=== PATIENT | female | born 1970 | race Caucasian/White ===

== ENCOUNTER 2020-07-14 01:28 | Inpatient (IN) | payer OTHER ==
[~2020-07-14] VITALS: Ht 170.2 cm; Wt 71.1 kg
[2020-07-14] VITALS (50 sets, daily range): BP systolic 61–129; BP diastolic 34–69
[2020-07-14] MEDS: NOREPINEPHRINE BITARTRATE 8 MG in D5W 492 ML IV SCH ×5 (01:30→20:15)
[2020-07-14] MEDS ORDERED: NS 500 ML IV ONE ×2 (01:40→08:45)
[2020-07-14] MEDS ORDERED: NS 1,000 ML IV SCH ×2 (01:40→14:15)
[2020-07-14] MEDS: MIDAZOLAM 5MG/ML 1ML VIAL (J2250 PER 1MG) IV PRN ×2 (01:49→02:36)
[2020-07-14] MEDS ORDERED: EPINEPHrine INJ 1 MG/ML 1ML AMP As Ordered ONE (02:35)
[2020-07-14] MEDS: propofoL 1,000 MG in IV 1 EA IV SCH ×5 (02:50→21:24)
[2020-07-14] MEDS: fentaNYL CITRATE 1,000 MCG in NS 80 ML IV SCH ×2 (02:51→02:54)
[2020-07-14] MEDS ORDERED: NS 1,000 ML IV ONE (03:20)
[2020-07-14] MEDS ORDERED: ISOVUE-370 76% 100ML VIAL As Ordered ONE (03:26)
[2020-07-14 03:31] LABS: VENOUS BASE EXCESS -15.2 (-2.0-2.0); VENOUS HCO3 14.2 MEQ/L (23.0-27.0); VENOUS O2 SATURATION 93.3 % (60.0-80.0); VENOUS PARTIAL PRESSURE CO2 47.9 mmHg (38.0-50.0); VENOUS PARTIAL PRESSURE O2 84.9 mmHg (30.0-50.0); VENOUS PH 7.091 UNITS (7.330-7.430); VENOUS STANDARD HCO3 12.8 MEQ/L; VENOUS TOTAL CO2 15.7 MEQ/L (24.0-28.0)
[2020-07-14 03:46] LABS: HEMATOCRIT 37.6 % (36.0-47.0); MEAN CORPUSCULAR HEMOGLOBIN 26.4 pg (27.0-33.0); MEAN CORPUSCULAR HGB CONC 29.3 g/dl (32.0-36.5); MEAN CORPUSCULAR VOLUME 90.4 fl (80.0-96.0); PLATELET COUNT, AUTOMATED 550 10^3/uL (150-450); RED BLOOD COUNT 4.16 10^6/uL (4.00-5.40); WHITE BLOOD COUNT 27.7 10^3/uL (4.0-10.0)
[2020-07-14 03:57] LABS: ALBUMIN 2.5 GM/DL (3.2-5.2); BILIRUBIN,TOTAL 1.2 MG/DL (0.2-1.0); CALCIUM LEVEL 7.9 MG/DL (8.5-10.1); GLOMERULAR FILTRATION RATE 27.9 (>51); POTASSIUM SERUM 5.9 MEQ/L (3.5-5.1)
--- NOTE | 2020-07-14 04:01 | REPVR ---
PROCEDURE INFORMATION: Exam: XR Abdomen Exam date and time: 07/14/2020 3:19 AM Age: 50 years old Clinical indication: Device placement; Vascular catheter; Additional info: Line TECHNIQUE: Imaging protocol: XR of the abdomen. Views: Frontal supine view of the abdomen. 1 View. COMPARISON: No relevant prior studies available. FINDINGS: Limitations: The abdomen was only partially included in the field of view. Tubes, catheters and devices: There is a right femoral catheter with the tip projecting just lateral to the L5 vertebral body, probably in the IVC. Gastrointestinal tract: There is no significant dilation of the visualized bowel. Intraperitoneal space: There are surgical clips on the right side of the pelvis. Bones/joints: The distal aspect of a screw is partially included in the right femoral head. IMPRESSION: Right femoral catheter with the tip probably in the IVC. Electronically signed by: Melissa Akins On 07/14/2020 04:01:00 AM
[2020-07-14 04:02] LABS: INR 1.23; PROTHROMBIN TIME 15.8 SECONDS (12.5-14.3)
--- NOTE | 2020-07-14 04:02 | REPVR ---
PROCEDURE INFORMATION: Exam: XR Chest Exam date and time: 07/14/2020 3:19 AM Age: 50 years old Clinical indication: Device placement; Ett placement (vent status); Additional info: Post intubation tube placement TECHNIQUE: Imaging protocol: XR of the chest. Views: 1 view. COMPARISON: No relevant prior studies available. FINDINGS: Limitations: The patient is rotated. Tubes, catheters and devices: A nasogastric tube is present with the tip in the stomach. There is an endotracheal tube in appropriate position. A loop recorder projects over the heart. Lungs: The lungs are clear. Pleural spaces: No pleural effusions or pneumothorax identified. Heart/Mediastinum: The heart is normal in size. Bones/joints: Unremarkable. IMPRESSION: 1. Endotracheal tube and nasogastric tube in appropriate position. 2. No evidence of acute pleural or parenchymal disease. Electronically signed by: Melissa Akins On 07/14/2020 04:02:00 AM
[2020-07-14 04:03] LABS: PARTIAL THROMBOPLASTIN TIME 46.2 SECONDS (24.2-38.5)
--- NOTE | 2020-07-14 04:10 | REPVR ---
PROCEDURE INFORMATION: Exam: CTA Chest With Contrast Exam date and time: 07/14/2020 3:46 AM Age: 50 years old Clinical indication: Other: Hypoxia, hypotension; Additional info: Hypoxia, hypotension, eval for pe TECHNIQUE: Imaging protocol: Computed tomographic angiography of the chest with contrast. 3D rendering (Not supervised by radiologist): MIP and/or 3D reconstructed images were created by the technologist. Radiation optimization: All CT scans at this facility use at least one of these dose optimization techniques: automated exposure control; mA and/or kV adjustment per patient size (includes targeted exams where dose is matched to clinical indication); or iterative reconstruction. Contrast material: ISOVUE 370; Contrast volume: 75 ml; Contrast route: INTRAVENOUS (IV); COMPARISON: CR PORTABLE CHEST X-RAY 07/14/2020 3:02 AM FINDINGS: Tubes, catheters and devices: A nasogastric tube is present with the tip in the stomach. There is an endotracheal tube in appropriate position. Pulmonary arteries: The pulmonary arteries are not enlarged. No filling defects are seen to indicate an acute pulmonary embolism. Aorta: The aorta demonstrates mild atherosclerotic calcification. There is no thoracic aortic aneurysm or evidence of dissection. Lungs: Moderate centrilobular emphysematous changes are present. There are multiple small calcified granulomata in both lungs. There is minimal dependent atelectasis in the bilateral lower lobes. Pleural spaces: No pleural effusions or pneumothorax identified. Heart: The heart is normal in size. Mediastinal space: There is retained fluid throughout the length of the esophagus. Lymph nodes: No lymphadenopathy is seen. Stomach and bowel: There are surgical sutures at the stomach and small bowel, related to a gastric bypass surgery. There are fluid-filled, mildly dilated small bowel loops and fluid-filled colonic loops in the visualized upper abdomen. The bowel gas pattern was not fully assessed on this exam. Bones/joints: No suspicious osseous lesions. No acute fractures. Soft tissues: Bilateral breast implants are present. IMPRESSION: 1. No evidence of acute pulmonary embolism. 2. No thoracic aortic aneurysm or dissection. 3. Emphysema and evidence of prior granulomatous disease with multiple pulmonary granulomata. 4. Dilated, fluid-filled small bowel and colon visualized in the upper abdomen. The bowel gas pattern is not fully assessed, but this may be due to an ileus or a distal bowel obstruction. Electronically signed by: Melissa Akins On 07/14/2020 04:09:56 AM
[2020-07-14] MEDS ORDERED: SODIUM BICARBONATE 8.4% INJ 50 ML SYRINGE IV STA ×2 (04:17→09:02)
[2020-07-14] MEDS ORDERED: NOREPINEPHRINE BITARTRATE 8 MG in D5W 492 ML IV SCH (04:40)
[2020-07-14] MEDS: NS 1,000 ML IV SCH ×5 (05:08→23:38)
[2020-07-14] MEDS: MIDAZOLAM INJ 2MG/2ML VIAL (J2250 PER 1MG) IV PRN ×9 (05:25→20:53)
[2020-07-14] MEDS ORDERED: MEROPENEM INJ 1 GM in IV 1 EA IV ONE (06:20)
[2020-07-14] MEDS: HEPARIN SOD (PORCINE) 5000UNITS/ML 1ML VIAL/SYRINGE SC SCH ×3 (06:42→19:50)
[2020-07-14] MEDS: IPRATROPIUM 0.5MG/ALBUTEROL 2.5MG INH SOL UD 3ML (DUONEB) NEB SCH ×4 (07:42→19:29)
[2020-07-14] MEDS ORDERED: GABA600T4 PO (08:08)
[2020-07-14] MEDS ORDERED: VITA50005 PO (08:08)
[2020-07-14] MEDS ORDERED: ASPI81CH49 PO (08:08)
[2020-07-14] MEDS ORDERED: LATU1TAB PO (08:08)
[2020-07-14] MEDS ORDERED: MORP15TA2 PO (08:08)
[2020-07-14] MEDS ORDERED: LEVE750T5 PO (08:08)
[2020-07-14] MEDS ORDERED: ENOX30IN3 SC (08:08)
[2020-07-14] MEDS ORDERED: VITA500T11 PO (08:08)
[2020-07-14] MEDS ORDERED: BUSP15TA47 PO (08:08)
[2020-07-14] MEDS ORDERED: FERR1TAB8 PO (08:08)
[2020-07-14] MEDS ORDERED: LISI-898 PO (08:08)
[2020-07-14] MEDS ORDERED: AMIT100TA PO (08:08)
[2020-07-14] MEDS ORDERED: HYDR50CA2 PO (08:08)
[2020-07-14] MEDS ORDERED: QUET50TA3 PO (08:08)
[2020-07-14] MEDS ORDERED: ZOLP12.518 PO (08:08)
[2020-07-14] MEDS ORDERED: MAGN400T35 PO (08:08)
[2020-07-14] MEDS ORDERED: CYAN1000VL IM (08:08)
[2020-07-14] MEDS ORDERED: SODIUM CHLORIDE 0.9% 1000ML IV ONE (08:30)
[2020-07-14 08:57] LABS: ABG BASE EXCESS -13.4 (-2.0-2.0); ABG HCO3 12.8 MEQ/L (22.0-26.0); ABG O2 SATURATION 95.1 % (95.0-99.0); ABG PARTIAL PRESSURE CO2 31.1 mmHg (35.0-45.0); ABG PARTIAL PRESSURE O2 84.4 mmHg (75.0-100.0); ABG TOTAL CO2 13.8 MEQ/L (22.0-29.0)
[2020-07-14] MEDS: CHLORHEXIDINE GLUCONATE 0.12 % 15ML UDC (PERIDEX ORAL RINSE) MT SCH ×2 (08:57→21:00)
[2020-07-14] MEDS: PANTOPRAZOLE 40MG VIAL (C9113 PER 1) IV SCH (08:58)
[2020-07-14] MEDS: MORPHINE 2 MG/ML 1ML VIAL (J2270) IV PRN ×4 (09:00→23:39)
[2020-07-14 09:01] LABS: ABG pH (ARTERIAL) 7.234 UNITS (7.350-7.450)
[2020-07-14 10:48] LABS: HEMATOCRIT 35.9 % (36.0-47.0); HEMOGLOBIN 10.6 g/dl (12.0-15.5); MEAN CORPUSCULAR HEMOGLOBIN 25.8 pg (27.0-33.0); MEAN CORPUSCULAR HGB CONC 29.5 g/dl (32.0-36.5); MEAN CORPUSCULAR VOLUME 87.3 fl (80.0-96.0); PLATELET COUNT, AUTOMATED 502 10^3/uL (150-450); RED BLOOD COUNT 4.11 10^6/uL (4.00-5.40); WHITE BLOOD COUNT 17.7 10^3/uL (4.0-10.0)
[2020-07-14] MEDS ORDERED: BUPIVACAINE HCL 0.25% 30ML VIAL As Ordered ONE (10:50)
[2020-07-14] MEDS ORDERED: LIDOCAINE 1% SDV 30ML VIAL As Ordered ONE (10:50)
[2020-07-14] MEDS: SODIUM BICARBONATE 100 MEQ in D5W 1,000 ML IV SCH (10:52)
[2020-07-14] MEDS: VASOPRESSIN INJ 20 UNITS in NS 499 ML IV SCH ×2 (11:00→17:10)
[2020-07-14 11:13] LABS: ALBUMIN 2.1 GM/DL (3.2-5.2); BILIRUBIN,TOTAL 0.9 MG/DL (0.2-1.0); CALCIUM LEVEL 7.1 MG/DL (8.5-10.1); CREATININE FOR GFR 1.77 MG/DL (0.55-1.30); GLOMERULAR FILTRATION RATE 32.1 (>51); PHOSPHORUS LEVEL 6.2 MG/DL (2.5-4.9); POTASSIUM SERUM 5.2 MEQ/L (3.5-5.1); TOTAL PROTEIN 4.6 GM/DL (6.4-8.2)
[2020-07-14 11:16] LABS: ATYPICAL LYMPH 4 % (0-5); GIANT PLATELETS 1+; LYMPHOCYTES 3 % (16-44); MONOCYTES 1 % (0-5); NEUTROPHILS 76 % (28-66); PLATELET CLUMPS MODERATE AMT; PLATELET ESTIMATE INCREASED (NORMAL)
[2020-07-14 11:19] LABS: TOXIC VACUOLATION 1+
[2020-07-14] MEDS ORDERED: METOCLOPRAMIDE INJ 10MG/2ML VIAL (J2765 PER 1) As Ordered ONE (12:08)
[2020-07-14] MEDS ORDERED: ETOMIDATE INJ 20MG/10ML VIAL As Ordered ONE (12:08)
[2020-07-14] MEDS ORDERED: propofoL 200 MG/20 ML VIAL As Ordered ONE (12:08)
[2020-07-14] MEDS ORDERED: ROCURONIUM BROMIDE 50 MG/5 ML VIAL As Ordered ONE ×2 (12:08→13:31)
[2020-07-14] MEDS ORDERED: dexameTHASONE 4 MG/ML 1ML VIAL (J1100 PER 1MG) As Ordered ONE (12:08)
[2020-07-14] MEDS ORDERED: fentaNYL 250 MCG/5 ML INJECTION (J3010) As Ordered ONE (12:08)
[2020-07-14] MEDS ORDERED: ONDANSETRON 4MG/2ML VIAL As Ordered ONE ×2 (12:08→13:33)
[2020-07-14] MEDS ORDERED: MIDAZOLAM INJ 2MG/2ML VIAL (J2250 PER 1MG) As Ordered ONE (12:08)
[2020-07-14] MEDS ORDERED: HYDROMORPHONE HCL 0.5 MG/ 0.5 ML SYRINGE (J1170 PER 1) IV PRN (14:10)
[2020-07-14] MEDS ORDERED: ONDANSETRON 4MG/2ML VIAL IV PRN (14:10)
[2020-07-14] MEDS ORDERED: fentaNYL 100 MCG/2 ML INJECTION (J3010) IV PRN (14:10)
[2020-07-14] MEDS ORDERED: HumaLOG INSULIN (NovoLOG) PER UNIT SC ONE (14:15)
--- NOTE | 2020-07-14 14:32 | ECHO ---
DATE OF PROCEDURE: 07/14/2020 Age: 50 Gender: Female Height: 67 inches Weight: 174 pounds Body surface area: 1.91 m2 PATIENT LOCATION: Inpatient ICU, room 3206. REFERRING PHYSICIAN: Gus Balbuena M.D. INDICATION: Sepsis. MEASUREMENTS: 2D Measurements: RV 3.3 cm LV 4.7 cm Septum 1.0 cm Posterior wall 1.0 cm Aortic Root 3.1 cm LA 3.2 cm LVEF 70-75% Doppler Measurements: AV 1.28 m/s LVOT 1.11 m/s LVOT diameter 1.8 cm MV-E 59, A 78, E/A ratio 0.8 Early mitral deceleration time 121 msec PV 1.1 m/s Pulmonary artery acceleration time 82 msec PASP 45 mmHg IVC 1.0 cm COMMENTS: Sinus tachycardia without intraventricular conduction disturbance. Technically difficult study in light of the patient being on a ventilator in the intensive care unit, but some diagnostically useful information was still obtained. Normal left ventricular size and wall thickness with hyperkinetic wall motion. Normal left atrial size with grade 1 LV diastolic dysfunction, but no clear evidence of an elevated mean left atrial pressure. Normal right heart chamber sizes with hyperkinetic right ventricular free wall motion and Doppler evidence of at least [id number] pulmonary hypertension. Somewhat reduced IVC size with complete collapse suggestive of a slightly low central venous pressure. Normal aortic dimensions. Normal appearing and functioning aortic valve. Normal appearing and functioning mitral valve. Normal appearing and functioning tricuspid valve with no more than trace insufficiency. No apparent intracardiac mass. Very small anterior and posterior echo free space with no evidence of cardiac chamber compression. MTDD
[2020-07-14 14:51] LABS: ABG BASE EXCESS -10.7 (-2.0-2.0); ABG HCO3 16.4 MEQ/L (22.0-26.0); ABG PARTIAL PRESSURE O2 85.9 mmHg (75.0-100.0); ABG STANDARD HCO3 15.7 MEQ/L (22.0-26.0); ABG TOTAL CO2 17.7 MEQ/L (22.0-29.0)
[2020-07-14 14:52] LABS: ABG pH (ARTERIAL) 7.209 UNITS (7.350-7.450)
--- NOTE | 2020-07-14 15:21 | ROOPDOC ---
[facility] Report Of Operation Report of Operation DATE OF PROCEDURE: 07/14/20 PREPROCEDURE DIAGNOSES: abdominal sepsis, ?ischemic bowel. POSTPROCEDURE DIAGNOSES: ischemic sigmoid down to mid rectum. PROCEDURE: Diagnostic Laparoscopyc converted to Exploratory Laparotomy, Resection of Sigmoid to mid rectum for ischemia, end colostomy. SURGEON: Jerzy Roberts MD DRILLING MACHINE OPERATOR: Joon Cortez MD (assisted me in the conduct of the whole procedure gin with retraction of bowels, exposure, dissection and decision making.) ANESTHESIA: General Endotracheal Anesthesia. ESTIMATED BLOOD LOSS: Approximately 300 mL. COMPLICATIONS: remains critically ill, intubated on norepinephrine for vasopressor support. REMARKS: Patient is 50 F transferred from outside hospital in critical condition. PROCEDURE NOTE: . DESCRIPTION OF PROCEDURE: Patient was brought down from the ICU to the operating room. She is intubated. She is receiving norepinephrine for vasopressor support. She has a Lopes c atheter with dark colored concentrated urine. She has a left femoral triple- lumen catheter. In the operating room she was transferred to the procedure table. Anesthesia tried to get an arterial line was not successful. Her left arm was tucked. Compression boots placed in both lower extremities were DVT prophylaxis. Her abdomen then prepped and draped in the usual sterile fashion.We paused for a surgical timeout using both pre-incision safety checklist to verify correct patient, procedure site and additional clinical information prior to beginning the procedure I started with diagnostic laparoscopy. The Veress needle was inserted over her left upper quadrant area. Initially the insufflation was uneven but with slight withdrawal of the Veress needle, we were able to insufflate her abdomen to a pressure 15 mmHg. Using the same incision a 5 mm optical port was placed under direct vision of 5 mm laparoscope. Insertion site was inspected for injury and none was found. She was placed on a slight Trendelenburg position. It turns out she has had a prior ventral hernia repair with a moderate-sized piece of mesh on her upper abdominal wall seems to be centered on the umbilicus. The transverse colon is adhered some to the top portion of the mesh. Visible portions of the bowel appears healthy. In the pelvis or some dark greenish almost bilious type fluid the sigmoid colon is noted to be pale and ischemic in appearance. The cecum is gas-filled, pink and healthy in appearance. There is also small amount of fluid up in the right upper quadrant by the liver. I placed a 5 mm ordered over the left lower quadrant area mainly to look at the upper abdomen to rule out a gastric perforation. Unfortunately the loop of transverse colon is on our way, but clearly the sigmoid colon seems to be the source of her sepsis. At this point I made incisions convert to an open surgery. A vertical midline incision was created infraumbilically and taken to above the umbilicus. We made a would extend this down to the symphysis pubis and also slightly above higher for adequate exposure. This was taken down through to the subcutaneous tissue. The abdomen was entered below the mesh. The extend the fascial incision to the length of the skin incision the mesh was divided at the midline. As mentioned we extended this down to the level of the symphysis pubis also bringing down the urinary bladder flap. I then started exploration by exteriorizing the small bowel. I started over at the right lower quadrant the ligament of Treitz. The bowel appears healthy I ran the bowel retrogradely to the level of the jejunojejunostomy which appears healthy. The bypass limb was also visualized and noted to be healthy up until the point that it went underneath the transverse colon mesentery. As mentioned the transverse colon was adhered to the top of the mesh precluding view of the stomach. The cecum is distended with air. The appendix is noted, mildly thickened wall but with no active inflammation. I followed the course of the right colon to the transverse colon. The sigmoid colon was also exteriorized this was quite redundant and floppy and this appears farrell, pale in appearance with thinned out portion of the antimesenteric wall. This was filled with soft stools down to the rectum. There was no obvious parts were this perforated but the whole of the loop of sigmoid colon is ischemic in appearance. I followed this to the rectum initiated visible portion of her rectum also appeared ischemic. This does not seem to be a volvulus type picture as to hold: Though mildly distended appears uniform in size with no kinking. I followed this retrogradely to the descending colon which starts becoming healthy urine appearance though still mildly pale. I chose an area of the junction of the sigmoid and descending colon were it appears healthy otherwise. A mesenteric window was created and the sigmoid colon was divided with an echelon 60 mm stapler with a green load. I then divided the mesentery at its midportion to avoid injuring the retroperitoneal structures especially that of the ureter. Thi s was done with the LigaSure device. We progressively went down towards the rectum. At this point we set up the Bookwalter self retaining retractor to allow us better view of the rectum. The posterior TME plane was opened up on both sides and the lateral peritoneal attachments to the rectum was likewise opened up. This continues to have patchy pale ischemic appearance on the upper rectum down to the mid rectum. I continued dividing the mesentery of the sigmoid colon to the rectum. The anterior peritoneal attachments between the rectum and the urinary bladder was also opened up to allow us to further manipulate and pull up on the rectum. I could not find a clearly defined healthy and to the rectum is or patches of ischemia and ureteral down to the extraperitoneal portion of the rectum behind the mid bladder at this point. I felt that even though the rectum does not appear totally healthy this may withstand closure and as the patient remains critically ill probably be a better option that we get her off the table as well as as we can for proper resuscitation. I chose an area about the mid rectum which appears fairly healthy though admittedly it still thinned wall, mildly pale in appearance. I divided the mesorectum at this point to send his out. Once this was done a contour 45 mm stapler was then used and it was divided at this point. We evaluated the stump and as mentioned wall superior thinned and pale but overall intact or some mild oozing at the staple line as well as behind at the transected portions of the mesorectum. We irrigated and cauterized clearly visible losing as well as placed a couple of hemoclips at this point. This was temporarily packed and night went on with the exploration. The bowel was again ran from the terminal ileum retrogradely passed the jejunojejunostomy and to the bypass limb to as he goes underneath the transverse mesocolon and all this appears healthy. The abdomen was then irrigated fully. No other patches of ischemic bowel was found. I further freed up the descending colon off its lateral and medial attachments to allow it to be pulled out as a colostomy. I chose an area in the left lower quadrant area slightly more lateral still within the rectus muscle to avoid the mesh. I had to trim the mesh on the left side so this does not come in contact with the colon. A disc of skin was removed along with the underlying subcutaneous tissue at the chosen area for the colostomy. Anterior sheath was opened up the rectus sheath was split and the posterior sheath was likewise opened up the accommodate 2 fingers. The descending colon stump was then pulled out and we checked for alignment to make sure there is no twisting of the bowel. The Bookwalter retractors were then removed as well as the laparotomy pads. A partial count was done to make sure there were no leftover laparotomy pads. 219 Jason drains were placed through the abdominal wall to the rectal stump on each side. The laparotomy incision was then closed with a running suture of #1 looped PDS. The subcutaneous tissue was irrigated and the skin was closed loosely with jaxson and Telfa luis were placed in between the staple line. The colostomy was then matured flush on the skin. The mucosa appears mildly pale but there was adequate losing at the cut ends. The colostomy appliance was placed. All drains secured to the skin. Bulky gauze dressings in place on top of the incision. Patient remains critically ill on vas opressor support though she has started to make some clear appearing urine. She was transferred to the recovery room area in a critical condition remaining intubated.. JERZY ROBERTS MD July 14, 2020 15:21
[2020-07-14] MEDS ORDERED: PATIENT COMMENT (15:30)
[2020-07-14] MEDS ORDERED: SODIUM BICARBONATE 8.4% INJ 50 ML SYRINGE IV ONE (15:35)
[2020-07-14] MEDS ORDERED: GLUCAGON INJ 1MG VIAL SC PRN (16:25)
[2020-07-14] MEDS ORDERED: GLUCOSE 4GM CHEW TABLET PO PRN (16:25)
[2020-07-14] MEDS ORDERED: DEXTROSE 50% 50 ML SYRINGE IV PRN (16:25)
[2020-07-14 17:21] LABS: ABG BASE EXCESS -9.9 (-2.0-2.0); ABG HCO3 15.3 MEQ/L (22.0-26.0); ABG O2 SATURATION 97.3 % (95.0-99.0); ABG PARTIAL PRESSURE CO2 30.9 mmHg (35.0-45.0); ABG PARTIAL PRESSURE O2 101.3 mmHg (75.0-100.0); ABG STANDARD HCO3 16.3 MEQ/L (22.0-26.0); ABG TOTAL CO2 16.3 MEQ/L (22.0-29.0); ABG pH (ARTERIAL) 7.313 UNITS (7.350-7.450)
--- NOTE | 2020-07-14 17:21 | CCN ---
CRITICAL CARE NOTE DATE: 07/14/2020 START TIME: 1550. STOP TIME: 1619. SUBJECTIVE: I again attended Susanna Portillo first in the recovery room and then on arrival here in the intensive care unit. I spoke at length with Dr. Roberts from general surgery as well as Dr. Rizvi from anesthesia. She did receive about 4 liters of crystalloid. She received some albumin. She got 1 amp of bicarbonate postoperatively. She is back on the same Levophed, actually was weaned mildly, but is now back to 50 mcg. Repeat blood gas done immediately postoperative showed a pH of 7.209, pCO2 of 42, pO2 of 85.9. Ventilator changes have been made by myself. Repeat blood gasses are pending. Currently, she is propofol as well as Levophed and crystalloid running at 250 mL/hour. Right radial arterial (A) line pressure reads 75-78 systolic. Noninvasive cuff reads 82-88 systolic. She is making good urine at this point. She did require resection of the sigmoid and proximal rectum. She has a colostomy in place and the stump is borderline at this point in appearance. I spoke with Dr. Roberts in that regard. PHYSICAL EXAMINATION: The remainder of the examination shows her heart rate to be 120 with a sinus mechanism, blood pressure as outlined above. She does overbreathe the ventilator with a rate of about 26-30 without accessory muscle use. She is currently afebrile. Pupils do react. Sclerae are clear. Trachea is midline. LUNGS: Clear to both auscultation and percussion. Expansion is symmetric. CARDIAC EXAM: Distant, tachycardic, but regular. Peripheral pulses diminished, but palpable. EXTREMITIES: Cool. Show her dressings from her open reduction internal fixation (ORIF). ABDOMEN: Shows her dressings and drains in place. NEUROLOGIC: She is sedate, but does move all extremities. THE MOST PRESSING PROBLEMS REQUIRING MY PRESENCE AT THE BEDSIDE: 1. Metabolic acidosis, now secondary to resection of ischemic bowel. 2. Respiratory failure, multifactorial. 3. Recent hip fracture. At this point, we will ensure adequate volume resuscitation. She is still requiring vasopressors. Will recheck coags as well as hemoglobin. Will recheck a lactate. I await those labs. The echocardiogram done preoperatively suggested suboptimal volume resuscitation, but otherwise, good systolic function with question of mild to moderate pulmonary hypertension, although the patient is on the ventilator. At this point, we will proceed as outlined above. Will continue her broad spectrum antimicrobials. At this point, she remains critically ill. I left the bedside at 1619 hours. A total of 29 minutes of critical care delivered at the bedside, not including procedures.
[2020-07-14 17:38] LABS: INR 1.26; PROTHROMBIN TIME 16.1 SECONDS (12.5-14.3)
[2020-07-14 17:39] LABS: PARTIAL THROMBOPLASTIN TIME 40.9 SECONDS (24.2-38.5)
[2020-07-14 17:46] LABS: HEMATOCRIT 23.4 % (36.0-47.0); MEAN CORPUSCULAR HEMOGLOBIN 26.3 pg (27.0-33.0); MEAN CORPUSCULAR HGB CONC 30.3 g/dl (32.0-36.5); MEAN CORPUSCULAR VOLUME 86.7 fl (80.0-96.0); WHITE BLOOD COUNT 14.3 10^3/uL (4.0-10.0)
[2020-07-14 17:48] LABS: HEMOGLOBIN 7.1 g/dl (12.0-15.5)
[2020-07-14 17:49] LABS: PLATELET COUNT, AUTOMATED 383 10^3/uL (150-450)
[2020-07-14 17:55] LABS: ALBUMIN 1.8 GM/DL (3.2-5.2); ALT/SGPT 23 U/L (12-78); BILIRUBIN,TOTAL 0.6 MG/DL (0.2-1.0); BLOOD UREA NITROGEN 30 MG/DL (7-18); CARBON DIOXIDE LEVEL 19 MEQ/L (21-32); CHLORIDE LEVEL 112 MEQ/L (98-107); CHOLESTEROL LEVEL < 50 MG/DL (< 200); CPK CREATINE PHOSPHOKINASE 606 U/L (26-192); CREATININE FOR GFR 1.26 MG/DL (0.55-1.30); GLOMERULAR FILTRATION RATE 47.5 (>51); GLUCOSE, FASTING 249 MG/DL (70-100); LDH LACTATE DEHYDROGENASE 400 U/L (84-246); POTASSIUM SERUM 5.3 MEQ/L (3.5-5.1); SODIUM LEVEL 139 MEQ/L (136-145); TOTAL PROTEIN 3.6 GM/DL (6.4-8.2); TRIGLYCERIDES LEVEL 73 MG/DL (<150)
[2020-07-14] MEDS: MEROPENEM INJ 1 GM in IV 1 EA IV SCH (18:49)
[2020-07-14] MEDS: HumaLOG INSULIN (NovoLOG) PER UNIT SC SCH ×2 (18:49→23:42)
[2020-07-14 19:47] LABS: BLAST CELLS 2 % (0-0); LYMPHOCYTES 6 % (16-44); METAMYELOCYTES 16 % (0-0); MONOCYTES 1 % (0-5); MYELOCYTES 4 % (0-0); NEUTROPHILS 36 % (28-66); PLATELET CLUMPS SMALL AMT; PLATELET ESTIMATE INCREASED (NORMAL)
[2020-07-14 19:48] LABS: ANISOCYTOSIS 1+; OVALOCYTES 1+; POIKILOCYTOSIS 3+
[2020-07-14 19:49] LABS: BURR CELLS 1+
[2020-07-14 21:22] LABS: ABG BASE EXCESS -7.7 (-2.0-2.0); ABG HCO3 16.3 MEQ/L (22.0-26.0); ABG O2 SATURATION 98.5 % (95.0-99.0); ABG PARTIAL PRESSURE CO2 27.5 mmHg (35.0-45.0); ABG PARTIAL PRESSURE O2 114.9 mmHg (75.0-100.0); ABG STANDARD HCO3 18.1 MEQ/L (22.0-26.0); ABG TOTAL CO2 17.2 MEQ/L (22.0-29.0); ABG pH (ARTERIAL) 7.392 UNITS (7.350-7.450)
[2020-07-15] VITALS (24 sets, daily range): BP systolic 95–136; BP diastolic 52–73
[2020-07-15] MEDS: VASOPRESSIN INJ 20 UNITS in NS 499 ML IV SCH ×3 (00:05→16:41)
[2020-07-15] MEDS: IPRATROPIUM 0.5MG/ALBUTEROL 2.5MG INH SOL UD 3ML (DUONEB) NEB SCH ×6 (00:11→19:34)
[2020-07-15] MEDS: NS 1,000 ML IV SCH ×6 (00:20→22:15)
[2020-07-15] MEDS: SODIUM BICARBONATE 100 MEQ in D5W 1,000 ML IV SCH (01:04)
[2020-07-15] MEDS: propofoL 1,000 MG in IV 1 EA IV SCH ×8 (01:14→23:16)
[2020-07-15] MEDS: MEROPENEM INJ 1 GM in IV 1 EA IV SCH ×3 (01:14→17:31)
[2020-07-15] MEDS: MIDAZOLAM INJ 2MG/2ML VIAL (J2250 PER 1MG) IV PRN ×8 (02:07→23:49)
[2020-07-15 05:02] LABS: HEMATOCRIT 27.1 % (36.0-47.0); MEAN CORPUSCULAR HGB CONC 33.2 g/dl (32.0-36.5); MEAN CORPUSCULAR VOLUME 84.4 fl (80.0-96.0); RED BLOOD COUNT 3.21 10^6/uL (4.00-5.40); WHITE BLOOD COUNT 13.9 10^3/uL (4.0-10.0)
[2020-07-15 05:06] LABS: PLATELET COUNT, AUTOMATED 234 10^3/uL (150-450)
[2020-07-15 05:37] LABS: ALBUMIN 1.7 GM/DL (3.2-5.2); ALT/SGPT 22 U/L (12-78); BILIRUBIN,TOTAL 0.8 MG/DL (0.2-1.0); BLOOD UREA NITROGEN 21 MG/DL (7-18); CALCIUM LEVEL 6.4 MG/DL (8.5-10.1); CARBON DIOXIDE LEVEL 20 MEQ/L (21-32); CHLORIDE LEVEL 112 MEQ/L (98-107); CHOLESTEROL LEVEL 68 MG/DL (< 200); CPK CREATINE PHOSPHOKINASE 707 U/L (26-192); CREATININE FOR GFR 0.86 MG/DL (0.55-1.30); GLOMERULAR FILTRATION RATE > 60.0 (>51); GLUCOSE, FASTING 209 MG/DL (70-100); LDH LACTATE DEHYDROGENASE 335 U/L (84-246); PHOSPHORUS LEVEL 2.6 MG/DL (2.5-4.9); SODIUM LEVEL 141 MEQ/L (136-145); TOTAL PROTEIN 3.7 GM/DL (6.4-8.2); TRIGLYCERIDES LEVEL 327 MG/DL (<150)
[2020-07-15 05:42] LABS: ATYPICAL LYMPH 1 % (0-5); LYMPHOCYTES 8 % (16-44); METAMYELOCYTES 2 % (0-0); MONOCYTES 3 % (0-5); NEUTROPHILS 57 % (28-66); PLATELET ESTIMATE NORMAL (NORMAL)
[2020-07-15 05:43] LABS: ANISOCYTOSIS 2+; POLYCHROMASIA 1+
[2020-07-15 05:44] LABS: PLATELET CLUMPS SMALL AMT
[2020-07-15 05:45] LABS: POIKILOCYTOSIS 2+; TOXIC VACUOLATION 1+
--- NOTE | 2020-07-15 05:52 | CR.PDOC ---
General Surgery Consultation Date of Consultation 07/15/20 History and Physical CONSULT REPORT FOR: Dr. Gus Balbuena REASON FOR CONSULTATION: abdominal source of sepsis HISTORY OF PRESENT ILLNESS: I was asked to emergently attending to miss Portillo who is currently admitted in the ICU, intubated and critically ill requiring maximum dose of norepinephrine to push her hemodynamics, minimal urine output, significant lactic and metabolic acidosis. There is some which details in her history available in our EMR. I did talk to her daughter on the phone to get more details on her acute and chronic medical history. She is recovering from an acute fall for which she fractured her femur on the right side and subsequently was admitted and [facility] had pinning of her fractured leg early June. Her daughter reports that she was having some constipation problems. Apparently yesterday she was sitting on the toilet trying to move her bowels when she passed out. She was brought to [facility] and from the review of the documentation at [facility] she was found to be hypotensive and during her stay in the emergency room was in respiratory distress were she was subsequently intubated. She was subsequently transferred to our emergency room. Prior to the transfer she had a CT of the chest, CT abdom en and pelvis performed and we have a CT image of those studies. In the ER she continued to be hypotensive. They were able to place a femoral triple-lumen catheter. A repeat CTA of the chest was performed which ruled out an emboli or a pulmonary source of her sepsis. On exam with her being intubated she does react with discomfort on palpation of her abdomen and her abdomen appears to be moderately distended and quiet. PAST MEDICAL HISTORY: 1. unknown at this time PAST SURGICAL HISTORY: INCLUDES: 1. .recent fractured femur with pinning ALLERGIES: Please see below.. HOME MEDICATIONS: Please see below. REVIEW OF SYSTEMS: Not obtainable. Patient is intubated. From my discussion with her daughter, is recovering from her orthopedic surgery. She had a recent fall with fracture of her right femur. She just had surgery at [facility]. Was home for about a week. She was taken or collects for her orthopedic pain. She does not take any chronic narcotics. She does not report any chronic abdominal pain. She reports chronic constipation. No fevers or chills being reported. PHYSICAL EXAMINATION: VITALS SIGNS: Please see below. GENERAL APPEARANCE: Intubated, critically ill-appearing. She does move spontaneously, opens her eyes. SKIN: Warm and dry, no obvious jaundice. HEENT: Normocephalic, atraumatic. intubated NECK: Supple, no thyromegaly. No obvious jugular venous distention. LUNGS: Clear to auscultation bilaterally. No wheezing appreciated. HEART: tachycardic, requiring pressors, regular rhythm. ABDOMEN: Abdomen is uniformly, moderately distended. She has a short upper vertical midline incision. Several port site incisions consistent with a prior cholecystectomy, prior gastric bypass. No obvious herniations. Abdomen is quiet. She demonstrates discomfort and tenderness on deep palpation EXTREMITIES: She has some dressings on her right leg from her recent orthopedic surgery. Mild ecchymosis spread on her leg. Mild swelling compared to the left leg no significant extremity edema ANCILLARIES: . LABORATORY DATA: Please see below. IMAGING STUDIES: I reviewed the images of the CTA that was done here in our hospital as well as to the CT abdomen and pelvis that was done at [facility]. Essential findings included distended loops of bowel. No free air. No free fluid. She is status post gastric bypass. There is some dilatation of the jejunojejunostomy. She appears to be very constipated with the large stool column extending throughout the whole of the colon. The CTA does not demonstrate any pulmonary emboli. No significant pleural effusion nor signs of pneumonia. The abdominal portion which reaches to the upper abdomen does not show any free air, some loops of distended bowel. IMPRESSION AND PLAN: Critically ill patient with significant metabolic acidosis, lactic acidosis, respiratory failure, intubated on maximum dose of norepinephrine, requiring multiple fluid boluses She looks to be distended and does elicit tenderness on examination though this is nonfocal. This reflects the same intestinal distention seen on CT. The concern is she has some intra-abdominal process that is causing the severe metabolic acidosis, in particular some process that is causing bowel ischemia which threatens her life. This seems to be an acute process that started yesterday morning or early afternoon. The CT imaging of the abdomen which was done early evening yesterday was done with IV contrast and does show good contrast flow through the SMA, celiac artery so I don't believe this to be a vascular event. This most likely some sort of a mechanical event. Given history of gastric bypass, concern is for an internal hernia that is causing strangula tion of the small bowel. There was no evidence of any infectious process like appendicitis or diverticulitis on the prior CT. I think it is prudent to go ahead and bring her to the operating room for diagnostic laparoscopy, most likely need for exploratory laparotomy to address this dilemma and surgically intervene. I spoke to her daughter Luna Mederos and discussed with her my concerns as well as her clinical picture and obtained a phone consent from her. There is another daughter who is at [place], Melanie, who is also a healthcare proxy. We will proceed with the surgery soon as the operating room is available.. Vital Signs Vital Signs Date Time Temp Pulse Resp B/P (MAP) Pulse Ox O2 Delivery O2 Flow Rate FiO2 07/15/20 03:00 97.2 119 22 102/58 (76) 97 Ventilator 30.0 101/59 (76) 07/15/20 02:00 30 I&Os I&O- Last 24 Hours up to 6 AM 07/15/20 05:59 Intake Total 9095.974 ml Output Total 4450 ml Balance 4645.974 ml Laboratory Data Labs 24H Laboratory Tests 2 07/14/20 08:11: Lactic Acid Followup at 4 Hours 3.2*H 07/14/20 08:39: Blood Gas Bicarbonate Standard 14.0L, Arterial Blood pH 7.234*L, Arterial Blood Partial Pressure CO2 31.1L, Arterial Blood Partial Pressure O2 84.4, Arterial Blood Total CO2 13.8L, Arterial Blood HCO3 12.8L, Arterial Blood Base Excess - 13.4L, Arterial Blood Oxygen Saturation 95.1 07/14/20 10:32: Anion Gap 13, Glomerular Filtration Rate 32.1L, Calcium Level 7.1L, Phosphorus Level 6.2H, Total Bilirubin 0.9, Aspartate Amino Transf (AST/SGOT) 100H, Alanine Aminotransferase (ALT/SGPT) 37, Alkaline Phosphatase 641H, Lactate Dehydrogenase 430H, Total Creatine Kinase 654H, Total Protein 4.6L, Albumin 2.1L, Albumin/Globulin Ratio 0.8L, Triglycerides Level 79, Cholesterol Level 72 07/14/20 10:33: Neutrophils (%) (Auto) , Nucleated Red Blood Cells % (auto) 0.2H, Neutrophils 76H, Band Neutrophils 16H, Lymphocytes (Manual) 3L, Monocytes (Manual) 1, Atypical Lymphocytes 4, Toxic Vacuolation 1+, Giant Platelets 1+, Platelet Estimate INCREASED, Clumped Platelets MODERATE AMT 07/14/20 14:08: Bedside Glucose (Misc Panel) 198H 07/14/20 14:40: Blood Gas Bicarbonate Standard 15.7L, Arterial Blood pH 7.209*L, Arterial Blood Partial Pressure CO2 42.0, Arterial Blood Partial Pressure O2 85.9, Arterial Blood Total CO2 17.7L, Arterial Blood HCO3 16.4L, Arterial Blood Base Excess -10 .7L, Arterial Blood Oxygen Saturation 95.0 07/14/20 17:11: Blood Gas Bicarbonate Standard 16.3L, Arterial Blood pH 7.313L, Arterial Blood Partial Pressure CO2 30.9L, Arterial Blood Partial Pressure O2 101.3H, Arterial Blood Total CO2 16.3L, Arterial Blood HCO3 15.3L, Arterial Blood Base Excess - 9.9L, Arterial Blood Oxygen Saturation 97.3, Neutrophils (%) (Auto) , Nucleated Red Blood Cells % (auto) 0.3H, Neutrophils 36, Band Neutrophils 35H, Lymphocytes (Manual) 6L, Monocytes (Manual) 1, Metamyelocytes 16H, Myelocytes 4H, Blastocytes 2H, Poikilocytosis 3+, Anisocytosis 1+, Ovalocytes 1+, Smiley Cells 1+, Platelet Estimate INCREASED, Clumped Platelets SMALL AMT, Prothrombin Time 16.1H, Prothromb Time International Ratio 1.26, Activated Partial Thromboplast Time 40.9H, Anion Gap 8, Glomerular Filtration Rate 47.5L, Lactic Acid Level 3.9*H, Calcium Level 6.0#L, Phosphorus Level 5.0H, Total Bilirubin 0.6, Aspartate Amino Transf (AST/SGOT) 80H, Alanine Aminotransferase (ALT/SGPT) 23, Alkaline Phosphatase 390H, Lactate Dehydrogenase 400H, Total Creatine Kinase 606H, Total Protein 3.6#L, Albumin 1.8L, Albumin/Globulin Ratio 1.0L, Triglycerides Level 73, Cholesterol Level < 50 07/14/20 21:15: Blood Gas Bicarbonate Standard 18.1L, Arterial Blood pH 7.392, Arterial Blood Partial Pressure CO2 27.5L, Arterial Blood Partial Pressure O2 114.9H, Arterial Blood Total CO2 17.2L, Arterial Blood HCO3 16.3L, Arterial Blood Base Excess - 7.7L, Arterial Blood Oxygen Saturation 98.5 07/14/20 23:37: Bedside Glucose (Misc Panel) 190H 07/15/20 04:45: Neutrophils (%) (Auto) , Nucleated Red Blood Cells % (auto) 0.3H CBC/BMP Laboratory Tests 07/14/20 10:32 07/14/20 10:33 07/14/20 17:11 07/15/20 04:45 Microbiology Microbiology 07/14/20 Blood Culture, Received Pending 07/14/20 Blood Culture - Preliminary, Resulted No growth after 24 hours . All specim... Home Medications Scheduled Amlodipine Besylate (Amlodipine Besylate) 10 Mg Tablet, 10 MG PO DAILY Ascorbic Acid (Vitamin C) 500 Mg Tablet, 500 MG PO DAILY, (Reported) Aspirin (Aspirin) 81 Mg Tab.chew, 81 MG PO DAILY, (Reported) Cyanocobalamin (Cyanocobalamin Injection) 1,000 Mcg/1 Ml Vial, 1,000 MCG IM QMONTH, (Reported) Enoxaparin Sodium (Enoxaparin Sodium) 30 Mg/0.3 Ml Syringe, 40 MG SC DAILY Ergocalciferol (Vitamin D2) (Vitamin D2) 50,000 Units Cap, 50,000 UNITS PO 2XW, (Reported) Ferrous Sulfate (Ferrous Sulfate) 325 Mg Tablet, 325 MG PO BID, (Reported) Furosemide (Furosemide) 40 Mg Tablet, 40 MG PO DAILY Gabapentin (Gabapentin) 100 Mg Capsule, 1 CAP PO TID Hydroxyzine Pamoate (Hydroxyzine Pamoate) 50 Mg Capsule, 50 MG PO BID, (Reported) Magnesium Oxide (Magnesium Oxide) 400 Mg Tablet, 400 MG PO DAILY, (Reported) Metoprolol Tartrate (Metoprolol Tartrate) 25 Mg Tablet, 25 MG PO BID Polyethylene Glycol 3350 (Miralax) 17 Gm Powd.pack, 2 PKT PO DAILY Psyllium Husk/Aspartame (Metamucil Fiber Singles Packet) 3.4 Gm Powd.pack, 1 PKT PO BID Senna (Senna Lax) 8.6 Mg Tablet, 2 TAB PO BID Scheduled PRN Hydrocodone/Acetaminophen (Hydrocodone-Acetamin 5-325 mg) 1 Each Tablet, 1 TAB PO Q6HP PRN for MILD/MODERATE PAIN (PS 1-7) Simethicone (Mi-Acid) 80 Mg Tab.chew, 80 MG PO QIDP PRN for BLOATING Allergies Coded Allergies: hydroxyzine (Verified Allergy, Mild, TREMORS, 07/14/20) topiramate (Verified Allergy, Mild, RASH, 07/14/20) codeine (Verified Adverse Reaction, Mild, NAUSEA, 07/14/20) meperidine (Verified Adverse Reaction, Mild, NAUSEA, 07/14/20) TAN BAUGH MD July 15, 2020 05:52
[2020-07-15 06:04] LABS: ABG BASE EXCESS -6.4 (-2.0-2.0); ABG HCO3 16.6 MEQ/L (22.0-26.0); ABG O2 SATURATION 96.1 % (95.0-99.0); ABG PARTIAL PRESSURE CO2 24.7 mmHg (35.0-45.0); ABG PARTIAL PRESSURE O2 80.6 mmHg (75.0-100.0); ABG STANDARD HCO3 19.1 MEQ/L (22.0-26.0); ABG TOTAL CO2 17.3 MEQ/L (22.0-29.0); ABG pH (ARTERIAL) 7.444 UNITS (7.350-7.450)
[2020-07-15] MEDS: MORPHINE 2 MG/ML 1ML VIAL (J2270) IV PRN ×2 (06:19→08:21)
[2020-07-15] MEDS: HEPARIN SOD (PORCINE) 5000UNITS/ML 1ML VIAL/SYRINGE SC SCH ×3 (06:20→22:15)
[2020-07-15] MEDS: HumaLOG INSULIN (NovoLOG) PER UNIT SC SCH ×3 (06:20→17:31)
--- NOTE | 2020-07-15 07:17 | REP ---
INDICATION: Resp failure COMPARISON: 07/14/2020 TECHNIQUE: Portable AP view of the chest FINDINGS: Endotracheal tube is approximately 4.5 cm above the joshua. Nasogastric tube extends to the level of the gastroesophageal junction with side port above the diaphragm and advancement is recommended. The mediastinum and cardiac silhouette are stable and within normal limits for portable technique. The lung rodriges demonstrate increased interstitial markings similar to prior examination without focal consolidation, effusion, or pneumothorax.. IMPRESSION: 1. Nasogastric tube requires advancement as the side port is above the level of the diaphragm. 2. Mildly increased interstitial markings noted bilaterally similar to prior examination. No focal consolidation or effusion. <Electronically signed by Ghassan Geronimo > 07/15/20 0790
[2020-07-15] MEDS: PANTOPRAZOLE 40MG VIAL (C9113 PER 1) IV SCH (08:20)
[2020-07-15] MEDS: CHLORHEXIDINE GLUCONATE 0.12 % 15ML UDC (PERIDEX ORAL RINSE) MT SCH ×2 (08:20→20:14)
--- NOTE | 2020-07-15 10:03 | IPNPDOC ---
Text Note Date of Service The patient was seen on 07/15/20. NOTE Patient seen and examined, discussed overnight course with nursing staff off levophed now, still on vasopressin, making a good amount of urine now On exam intubated, sedated with spontaneous movements of upper extremity abdomen remains distended, soft, quiet. Midline incision not much drainage, left side ostomy looks viable, pink RLE clean wounds, jaxson intact Impression/Plan POD1 Ex Lap Resection sigmoid upper rectum (partial LAR) end colostomy for bowel ischemia sepsis from above somewhat hemodynamically improved but still very critically ill no bowel function yet continue supportive measures, abx keep ngt await some bowel function, at least improvement of distention then may try trickle feeds through ngt if still intubated dvt prophylaxis VS,Fishbone, I+O VS, Fishbone, I+O Laboratory Tests 07/14/20 10:32 07/14/20 10:33 07/14/20 17:11 07/15/20 04:45 Vital Signs Date Time Temp Pulse Resp B/P (MAP) Pulse Ox O2 Delivery O2 Flow Rate FiO2 07/15/20 08:40 22 07/15/20 08:21 Ventilator 07/15/20 07:10 121 95 25 07/15/20 06:00 102/54 (72) 30.0 101/55 (72) 07/15/20 05:00 98.4 I&O- Last 24 Hours up to 6 AM 07/15/20 06:00 Intake Total 9095.974 ml Output Total 4570 ml Balance 4525.974 ml TAN BAUGH MD July 15, 2020 10:02
--- NOTE | 2020-07-15 10:04 | CCN ---
CRITICAL CARE NOTE DATE: 07/15/2020 START TIME: 824 STOP TIME: 903 SUBJECTIVE: I again attended Susanna Portillo here in the Intensive Care Unit. Today is postop day one for a bowel resection for ischemic sigmoid. T-max overnight 98.4. Blood pressure 95 to 110. She was able to be weaned off of Levophed. She remains on vasopressor. Heart rate generally 110 to 120 with a sinus mechanism. Respiratory rate 22 to 26 without accessory muscle use. I's and O's midnight to midnight: 9059 mL in with 3895 mL out. She did receive 2 units of packed red blood cells for a hemoglobin of 7. Most recent laboratories show a white blood cell count of 13.9, hemoglobin 9.0, platelet count 234,000, 57% segs, 29% bands. Of interest is she had 16% metamyelocytes yesterday down to 2% today. Sodium 141, potassium 4.0, chloride 112, CO2 20, BUN 21, creatinine down to 0.86, glucose 209. Calcium mildly low at 6.4. AST 68, ALT 22, alkaline phosphatase down to 312, LDH 335. Albumin depressed at 1.7. Lactic acid this morning 2.5, down from a high of 3.9. On a PRVC mode, tidal volume 440, rate of 20, PEEP of 5, FiO2 of 30% had a pH of 7.444, pCO2 of 24.7, and a pO2 of 80.6. Saturation 96%. Chest x-ray this morning shows the endotracheal tube to be mildly high. NG tube is in place. No acute abnormalities. OBJECTIVE: GENERAL: She is ill appearing. HEENT: Pupils reactive. Sclera clear. Trachea is in the midline. Membranes are moist. CHEST: Chest is clear to both auscultation and percussion, expansion symmetric. . No focal adventitious breath sounds were identified. Tactile fremitus palpable throughout. CARDIAC: Tachycardic but regular. Peripheral pulses palpable. No obvious edema. ABDOMEN: Abdomen shows her surgical dressings to be in place. Drains in place and appear to be working well. Her colostomy does have some serous bloody drainage, and the stump looks to be of better color today. Abdomen, however, remains mildly distended and quiet. EXTREMITIES: Extremities show her orthopedic surgical incisions to be healing well. No drainage or erythema. Peripheral pulses palpable. No obvious edema. NEUROLOGIC: She is sedate but moves all extremities. PSYCHIATRIC: Psychiatric exam shows her to be sedate. MOST PRESSING PROBLEMS REQUIRING MY PRESENCE AT THE BEDSIDE: 1. Respiratory failure, multifactorial. 2. Metabolic acidosis on the basis of ischemic bowel. 3. Obstipation. 4. Recent hip fracture. PLAN: At this point, we will continue broad spectrum antimicrobials, especially in view of her still very elevated immature white cell count. There was no obvious peritonitis, but certainly there is always concern given the degree of obstipation that was discovered at the time of her surgical intervention. Blood cultures are negative to date. We will continue to follow that closely. She has been able to be weaned off of the Levophed. Will probably decrease her vasopressor later today. Ventilator changes have been made. Will check a blood gas in an hour. We will continue her current level of volume resuscitation. I will try to get a PICC line in her today and get her femoral triple lumen that was placed in the ER discontinued once we have better central access. From a nutritional standpoint, I will speak with General Surgery. If we are not able to start tube feeds in the next 24 hours or if she is not extubated and starting enteral feeds, then we will need to consider TPN. For now, she will remain on ulcer and DVT prophylaxis. She is still a little more tachycardic than I would expect. There was some concern raised from the referring hospital regarding narcotic use, and it may be that her pain tolerance is much higher than we are achieving with morphine, and I will change her to Fentanyl and adjust the dose as needed. At this point, we will proceed as outlined above. Overall she does remain still quite critically ill. Will proceed as outlined above. I left the bedside at 0904 hours. Thirty-nine minutes of critical care time at the bedside not including procedures. BRANDOND
[2020-07-15 10:12] LABS: ABG BASE EXCESS -4.6 (-2.0-2.0); ABG HCO3 17.7 MEQ/L (22.0-26.0); ABG O2 SATURATION 93.7 % (95.0-99.0); ABG PARTIAL PRESSURE CO2 24.1 mmHg (35.0-45.0); ABG PARTIAL PRESSURE O2 66.3 mmHg (75.0-100.0); ABG STANDARD HCO3 20.6 MEQ/L (22.0-26.0); ABG TOTAL CO2 18.5 MEQ/L (22.0-29.0); ABG pH (ARTERIAL) 7.485 UNITS (7.350-7.450)
[2020-07-15] MEDS ORDERED: NOREPINEPHRINE BITARTRATE 16 MG in D5W 484 ML IV SCH (11:00)
[2020-07-15] MEDS: fentaNYL 100 MCG/2 ML INJECTION (J3010) IV PRN ×2 (11:24→15:26)
[2020-07-15] MEDS ORDERED: LIDOCAINE 1% MDV 20ML VIAL As Ordered ONE (14:19)
[2020-07-15 16:43] LABS: HEMATOCRIT 24.5 % (36.0-47.0); MEAN CORPUSCULAR HEMOGLOBIN 27.5 pg (27.0-33.0); MEAN CORPUSCULAR HGB CONC 32.7 g/dl (32.0-36.5); MEAN CORPUSCULAR VOLUME 84.2 fl (80.0-96.0); PLATELET COUNT, AUTOMATED 236 10^3/uL (150-450); RED BLOOD COUNT 2.91 10^6/uL (4.00-5.40); WHITE BLOOD COUNT 15.7 10^3/uL (4.0-10.0)
--- NOTE | 2020-07-15 17:53 | REP ---
INDICATION: Needs central access for TPN. COMPARISON: None. TECHNIQUE: The procedure was performed under the direct supervision of Dr. Bowen. The risks and benefits of the procedure were explained and informed consent was obtained by the healthcare proxy. The procedure was performed in the ICU at the bedside. The right brachial vein was localized using ultrasound guidance. The skin was prepped and draped in a sterile fashion. 1% lidocaine was used as a local anesthetic. Using ultrasound guidance the brachial vein was cannulated and a 0.018 guidewire was inserted. The needle was removed and a 5.5 Irish dilator and peel-away sheath was inserted over the guide wire. A 5.5 Irish dual lumen catheter was cut to length of 40 cm. The dilator was removed and the catheter was inserted over the guide wire. A portable chest x-ray was performed and the image demonstrates the tip of the catheter to be in the SVC. The peel-away sheath was removed and the catheter was flushed with heparinized saline as per Hospital protocol. The catheter was affixed to the skin and a sterile dressing was applied. The patient tolerated the procedure well and there were no immediate complications. FINDINGS: None IMPRESSION: PICC line insertion right brachial vein performed at the bedside. <Electronically signed by Madhu Goodman > 07/15/20 [id number] <Electronically signed by Dominik Bowen > 07/15/20 [id number]
[2020-07-15 18:26] LABS: LYMPHOCYTES 3 % (16-44); METAMYELOCYTES 5 % (0-0); MYELOCYTES 1 % (0-0); NEUTROPHILS 70 % (28-66)
[2020-07-15 18:27] LABS: PLATELET ESTIMATE NORMAL (NORMAL); TOXIC VACUOLATION 2+
[2020-07-15 18:28] LABS: ANISOCYTOSIS 3+; POIKILOCYTOSIS 1+
[2020-07-16] VITALS (44 sets, daily range): BP systolic 88–163; BP diastolic 46–88
[2020-07-16] MEDS: HumaLOG INSULIN (NovoLOG) PER UNIT SC SCH ×5 (00:01→23:06)
[2020-07-16] MEDS: IPRATROPIUM 0.5MG/ALBUTEROL 2.5MG INH SOL UD 3ML (DUONEB) NEB SCH ×6 (00:06→19:10)
[2020-07-16] MEDS: VASOPRESSIN INJ 20 UNITS in NS 499 ML IV SCH (00:46)
[2020-07-16] MEDS: MEROPENEM INJ 1 GM in IV 1 EA IV SCH ×3 (01:59→18:16)
[2020-07-16] MEDS: propofoL 1,000 MG in IV 1 EA IV SCH ×8 (02:01→22:16)
[2020-07-16] MEDS: NS 1,000 ML IV SCH ×6 (02:39→18:14)
[2020-07-16] MEDS: MIDAZOLAM INJ 2MG/2ML VIAL (J2250 PER 1MG) IV PRN ×4 (04:34→22:15)
[2020-07-16 05:31] LABS: ABG BASE EXCESS -5.5 (-2.0-2.0); ABG HCO3 17.7 MEQ/L (22.0-26.0); ABG O2 SATURATION 96.9 % (95.0-99.0); ABG PARTIAL PRESSURE CO2 25.7 mmHg (35.0-45.0); ABG PARTIAL PRESSURE O2 87.2 mmHg (75.0-100.0); ABG STANDARD HCO3 19.8 MEQ/L (22.0-26.0); ABG TOTAL CO2 18.5 MEQ/L (22.0-29.0); ABG pH (ARTERIAL) 7.456 UNITS (7.350-7.450)
[2020-07-16 05:43] LABS: HEMATOCRIT 21.2 % (36.0-47.0); MEAN CORPUSCULAR HEMOGLOBIN 27.2 pg (27.0-33.0); MEAN CORPUSCULAR HGB CONC 32.1 g/dl (32.0-36.5); MEAN CORPUSCULAR VOLUME 84.8 fl (80.0-96.0); PLATELET COUNT, AUTOMATED 196 10^3/uL (150-450); WHITE BLOOD COUNT 15.2 10^3/uL (4.0-10.0)
[2020-07-16 05:53] LABS: HEMOGLOBIN 6.8 g/dl (12.0-15.5)
[2020-07-16 06:04] LABS: ALBUMIN 1.4 GM/DL (3.2-5.2); ALT/SGPT 17 U/L (12-78); BILIRUBIN,TOTAL 0.5 MG/DL (0.2-1.0); BLOOD UREA NITROGEN 16 MG/DL (7-18); CALCIUM LEVEL 7.3 MG/DL (8.5-10.1); CARBON DIOXIDE LEVEL 20 MEQ/L (21-32); CHLORIDE LEVEL 117 MEQ/L (98-107); CHOLESTEROL LEVEL 67 MG/DL (< 200); CPK CREATINE PHOSPHOKINASE 363 U/L (26-192); CREATININE FOR GFR 0.52 MG/DL (0.55-1.30); GLOMERULAR FILTRATION RATE > 60.0 (>51); GLUCOSE, FASTING 133 MG/DL (70-100); LDH LACTATE DEHYDROGENASE 272 U/L (84-246); PHOSPHORUS LEVEL 2.1 MG/DL (2.5-4.9); POTASSIUM SERUM 3.3 MEQ/L (3.5-5.1); SODIUM LEVEL 144 MEQ/L (136-145); TOTAL PROTEIN 4.2 GM/DL (6.4-8.2); TRIGLYCERIDES LEVEL 249 MG/DL (<150)
[2020-07-16] MEDS: HEPARIN SOD (PORCINE) 5000UNITS/ML 1ML VIAL/SYRINGE SC SCH ×3 (06:16→21:22)
[2020-07-16 06:38] LABS: LYMPHOCYTES 7 % (16-44); NEUTROPHILS 86 % (28-66); PLATELET ESTIMATE NORMAL (NORMAL)
[2020-07-16 06:39] LABS: ANISOCYTOSIS 3+; POLYCHROMASIA 2+
[2020-07-16 06:41] LABS: DOHLE BODIES 1+
--- NOTE | 2020-07-16 07:59 | REP ---
INDICATION: Resp failure COMPARISON: 07/15/2020 TECHNIQUE: Portable AP view of the chest FINDINGS: Endotracheal tube, nasogastric tube, and right central venous catheter in satisfactory position. The mediastinum and cardiac silhouette are stable and within normal limits for portable technique. The lung rodriges demonstrate subtle stable increased interstitial markings and subtle left basilar atelectasis cannot be excluded. No discrete focal consolidation, obvious effusion, or pneumothorax. Skeletal structures are intact. IMPRESSION: Chronic interstitial changes. Subtle superimposed left lower lobe airspace disease/atelectasis cannot be excluded. <Electronically signed by Ghassan Geronimo > 07/16/20 [id number]
[2020-07-16] MEDS: PANTOPRAZOLE 40MG VIAL (C9113 PER 1) IV SCH (08:13)
[2020-07-16] MEDS: CHLORHEXIDINE GLUCONATE 0.12 % 15ML UDC (PERIDEX ORAL RINSE) MT SCH ×2 (08:13→20:43)
[2020-07-16] MEDS: fentaNYL 100 MCG/2 ML INJECTION (J3010) IV PRN ×2 (08:14→15:50)
[2020-07-16] MEDS: KCL 20MEQ IN 100ML SWI (KRUN) 20 MEQ in IV 1 EA IV SCH ×4 (09:31→11:12)
--- NOTE | 2020-07-16 09:44 | CCN ---
CRITICAL CARE NOTE DATE: 07/16/2020 START TIME: 819 STOP TIME: 917 SUBJECTIVE: I again attended Susanna Portillo here in the intensive care unit. The patient has been examined and chart reviewed. I spoke at length with the nurse at the bedside, as well as Dr. Roberts regarding her status. OBJECTIVE: VITAL SIGNS: T-max overnight 98.9, blood pressure 100 to 138 systolic. Heart rate in the low 100s to the mid teens with a sinus mechanism. Respiratory rate 16 to about 24 without accessory muscle use. INTAKE AND OUTPUT: [id number] 7523 mL in with 3250 mL out. GENERAL: She is sedate, but is arousable. Follows commands when lightened, but is somewhat anxious. HEENT: Pupils do react. Sclerae clear. Trachea is in the midline. CHEST: Diminished, but with symmetric expansion. Percussion reasonable. Tactile fremitus palpable. No focal adventitious breath sounds are identified. CARDIAC: Mildly tachycardic, but regular. Peripheral pulses palpable. Trace edema. ABDOMEN: Shows her dressings and drains in place and are functioning well. Abdomen is softer today and remains quite. EXTREMITIES: Show her orthopedic surgical incision is healing well with jaxson still in place. No obvious cyanosis or clubbing. NEUROLOGIC: As outlined above. PSYCHIATRIC: Shows her to be sedate. LABORATORY DATA: Most recent laboratories show a sodium of 144, K of 3.3, chloride 117, CO2 of 20, BUN 16, creatinine 0.52, glucose 133. Calcium 7.3, phosphorus 2.1. Liver functions continue to improve. Albumin depressed today at 1.4. White blood cell count 15.2, hemoglobin down to 6.8, and platelet count of 196,000 with 86% segs and only 7% bands today down from 21% yesterday. Blood gas done on an SIMV of 16, tidal volume of 440, PEEP of 5, pressure support of 15, and an FiO2 of 30% has a pH of 7.456, pCO2 of 25.7, and pO2 of 87.2. Saturation 96.95. IMAGING DATA: Chest x-ray shows lines and tubes in good position with no acute findings. ASSESSMENT: The most pressing problems requiring my presence at the bedside: 1. Respiratory failure, multifactorial. 2. Sepsis due to ischemic bowel. 3. Ischemic sigmoid status post resection. 4. Blood loss anemia. PLAN: At this point, she continues to require transfusion. I will speak more with Dr. Roberts in that regard. She is not saturating her dressings and her drains really are not putting out much. Certainly, this may be a reflection of her degree of volume resuscitation with concomitant preexisting status. We will transfuse her today with a goal hemoglobin at least over 8 and hopefully closer to 10. We will replete her potassium. From a nutritional standpoint, we will begin total parenteral nutrition (TPN) and those orders are written. I have discussed this with Dr. Roberts. We will discontinue the vasopressin as her pressures have been reasonable. She has been off Levophed for greater than 24 hours. She remains on ulcer and deep vein thrombosis (DVT) prophylaxis. From an infectious disease standpoint, I will continue the meropenem. Her white blood cell count is down mildly, but more importantly her immature cells are significantly improved and we will therefore continue. Ventilator adjustments will be made as we are able, but I would like to optimize her regarding her other physiologic states prior to pushing her for extubation. Pain control appears reasonable. She is making good urine. Her BUN and creatinine are improved. We will repeat a lactic acid level to assure that this has cleared as well. At this point in the overall picture, she remains quite critically ill. We will continue as outlined above. Prognosis, however, remains guarded. I was talking with Dr. Roberts who will reassess whether or not we can take the jaxson out from her orthopedic incisions. I left the bedside at 0918 hours. CRITICAL CARE TIME: 58 minutes delivered at the bedside not including procedures.
--- NOTE | 2020-07-16 09:57 | IPNPDOC ---
Text Note Date of Service The patient was seen on 07/16/20. NOTE Patient seen and examined. Discussed with her nurse. She reports to me that mo rning labs her showing hemoglobin of 6.8 and she has already been ordered for 2 units of packed RBCs. They are weaning off the vasopressin today. Her tachycardia has improved. She is making adequate urine output. Still no output yet from the colostomy. VS reviewed. Decreased tachycardia. MEP is in the 80s. She remains intubated on a ventilator only 30% FiO2 June 15 respiratory rate in the mid 20s. I/O urine output 2140 NGT 1050 JLUIS drain 60 Colostomy no output On examination She is heavily sedated at the time of my examination on propofol drip. Vent settings as well as environmental monitoring specialist readings noted. No elevated JVD Skin is warm and dry. Starting to form generalized edema Lungs are clear to auscultation bilaterally no wheezing Tachycardic, regular rhythm Abdomen is still quiet, softly distended. Midline incision with her original postoperative dressings which are clean and dry. She still has the Telfa luis in there so much drainage from it. Colostomy over the left lower quadrant pale pink but viable. No output yet. 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 He may be able to wean off the vasopressin. Suggest coming down also on the IV fluids at this time. It does not look like her enteric system is going to wake- up the next few days so suggest starting on TPN. Will change the postoperative dressings tomorrow. I was asked by Dr. Balbuena to manage his skin take jaxson from his IM nailing on the right femur. Not sure when the exact surgery date was so will confirm that for us. For the meantime we'll leave that in place. VS,Fishbone, I+O VS, Fishbone, I+O Laboratory Tests 07/15/20 16:26 07/16/20 05:20 Vital Signs Date Time Temp Pulse Resp B/P (MAP) Pulse Ox O2 Delivery O2 Flow Rate FiO2 07/16/20 08:30 109 27 118/55 (83) 96 Ventilator 25 118/61 07/16/20 08:14 25.0 07/16/20 08:00 98.9 I&O- Last 24 Hours up to 6 AM 07/16/20 05:59 Intake Total 7230 ml Output Total 2815 ml Balance 4415 ml TAN BAUGH MD July 16, 2020 09:57
[2020-07-16] MEDS ORDERED: SODIUM CHLORIDE IV SCH ×9 (18:00)
[2020-07-16] MEDS: SODIUM CHLORIDE 0.9% INJ 10 ML SYR IV SCH (18:00)
[2020-07-16] MEDS ORDERED: [UNRECOGNIZED DRUG - OTHER] IV SCH ×9 (18:00)
[2020-07-16] MEDS ORDERED: SODIUM ACETATE IV SCH ×9 (18:00)
[2020-07-16] MEDS ORDERED: HumaLOG INSULIN (NovoLOG) PER UNIT SC SCH (18:00)
[2020-07-16] MEDS ORDERED: FAT EMULSION IV 20% 500 ML IV SCH (18:00)
[2020-07-16 22:07] LABS: HEMATOCRIT 22.9 % (36.0-47.0); HEMOGLOBIN 7.6 g/dl (12.0-15.5)
[2020-07-16] MEDS ORDERED: NOREPINEPHRINE BITARTRATE 8 MG in D5W 492 ML IV SCH (22:45)
[2020-07-16 23:29] LABS: INR 0.95; PROTHROMBIN TIME 12.9 SECONDS (12.5-14.3)
[2020-07-16 23:30] LABS: PARTIAL THROMBOPLASTIN TIME 35.6 SECONDS (24.2-38.5)
[2020-07-17] VITALS (36 sets, daily range): BP systolic 85–169; BP diastolic 50–112
[2020-07-17] MEDS: IPRATROPIUM 0.5MG/ALBUTEROL 2.5MG INH SOL UD 3ML (DUONEB) NEB SCH ×6 (00:12→19:24)
[2020-07-17] MEDS: MEROPENEM INJ 1 GM in IV 1 EA IV SCH ×3 (01:07→17:29)
[2020-07-17] MEDS: propofoL 1,000 MG in IV 1 EA IV SCH ×10 (01:08→23:05)
[2020-07-17] MEDS: MIDAZOLAM INJ 2MG/2ML VIAL (J2250 PER 1MG) IV PRN ×3 (03:35→14:50)
[2020-07-17] MEDS: NS 1,000 ML IV SCH (03:58)
[2020-07-17] MEDS: HEPARIN SOD (PORCINE) 5000UNITS/ML 1ML VIAL/SYRINGE SC SCH (05:24)
[2020-07-17 05:26] LABS: ABG BASE EXCESS -5.6 (-2.0-2.0); ABG HCO3 17.2 MEQ/L (22.0-26.0); ABG O2 SATURATION 96.1 % (95.0-99.0); ABG PARTIAL PRESSURE CO2 24.8 mmHg (35.0-45.0); ABG STANDARD HCO3 19.8 MEQ/L (22.0-26.0); ABG TOTAL CO2 17.9 MEQ/L (22.0-29.0); ABG pH (ARTERIAL) 7.458 UNITS (7.350-7.450)
[2020-07-17] MEDS: SODIUM CHLORIDE 0.9% INJ 10 ML SYR IV SCH ×2 (05:27→17:30)
[2020-07-17] MEDS: HumaLOG INSULIN (NovoLOG) PER UNIT SC SCH ×4 (05:32→23:26)
[2020-07-17 05:42] LABS: HEMATOCRIT 27.1 % (36.0-47.0); HEMOGLOBIN 8.8 g/dl (12.0-15.5); MEAN CORPUSCULAR HEMOGLOBIN 28.9 pg (27.0-33.0); MEAN CORPUSCULAR HGB CONC 32.5 g/dl (32.0-36.5); MEAN CORPUSCULAR VOLUME 89.1 fl (80.0-96.0); PLATELET COUNT, AUTOMATED 152 10^3/uL (150-450); RED BLOOD COUNT 3.04 10^6/uL (4.00-5.40)
[2020-07-17 06:02] LABS: ALBUMIN 1.5 GM/DL (3.2-5.2); ALT/SGPT 19 U/L (12-78); BILIRUBIN,TOTAL 0.6 MG/DL (0.2-1.0); BLOOD UREA NITROGEN 14 MG/DL (7-18); CARBON DIOXIDE LEVEL 20 MEQ/L (21-32); CHLORIDE LEVEL 121 MEQ/L (98-107); CHOLESTEROL LEVEL 72 MG/DL (< 200); CPK CREATINE PHOSPHOKINASE 215 U/L (26-192); CREATININE FOR GFR 0.38 MG/DL (0.55-1.30); GLOMERULAR FILTRATION RATE > 60.0 (>51); GLUCOSE, FASTING 136 MG/DL (70-100); LDH LACTATE DEHYDROGENASE 266 U/L (84-246); POTASSIUM SERUM 3.4 MEQ/L (3.5-5.1); SODIUM LEVEL 148 MEQ/L (136-145); TOTAL PROTEIN 4.2 GM/DL (6.4-8.2); TRIGLYCERIDES LEVEL 153 MG/DL (<150)
[2020-07-17 06:24] LABS: ANISOCYTOSIS 2+; LYMPHOCYTES 4 % (16-44); METAMYELOCYTES 2 % (0-0); MONOCYTES 4 % (0-5); NEUTROPHILS 85 % (28-66); PLATELET ESTIMATE NORMAL (NORMAL)
[2020-07-17 06:25] LABS: POLYCHROMASIA 1+
[2020-07-17 07:21] LABS: HEMATOCRIT 25.4 % (36.0-47.0); HEMOGLOBIN 8.5 g/dl (12.0-15.5)
--- NOTE | 2020-07-17 07:47 | REP ---
INDICATION: Resp failure. COMPARISON: July 16, 2020 TECHNIQUE: Portable upright AP chest radiograph. FINDINGS: Endotracheal tube is seen in good position at the level of the proximal clavicles. A nasogastric tube enters the left upper quadrant. There are clips in the right upper quadrant of the abdomen. A right-sided PICC line terminates in the expected location of the superior vena cava. Monitoring electrodes and a loop recorder are noted. There is some linear density in the left base laterally which may be discoid atelectasis. The lung rodriges are otherwise clear.. Pleural angles are sharp. IMPRESSION: Discoid atelectasis left base. Endotracheal and nasogastric tubes in place.. <Electronically signed by Jey Bergman > 07/17/20 0711
[2020-07-17] MEDS ORDERED: POTASSIUM CHLORIDE 10% LIQ 20 MEQ/15 ML UDC NG ONE (08:00)
[2020-07-17] MEDS ORDERED: FUROSEMIDE 20MG/2ML VIAL (J1940) IV ONE (08:00)
[2020-07-17] MEDS: PANTOPRAZOLE 40MG VIAL (C9113 PER 1) IV SCH (08:05)
[2020-07-17] MEDS: CHLORHEXIDINE GLUCONATE 0.12 % 15ML UDC (PERIDEX ORAL RINSE) MT SCH ×2 (08:05→20:12)
[2020-07-17] MEDS: NYSTATIN 500,000 U/5 ML SUSP UDC SS SCH ×3 (09:22→20:12)
--- NOTE | 2020-07-17 10:36 | CCN ---
CRITICAL CARE NOTE DATE: 07/17/2020 This is ICU day #3, day #3 Meropenem. Critical care time was 1 hour and 5 minutes. This excludes all procedures. HISTORY OF PRESENT ILLNESS: Overnight, the patient had anemia, has been getting IV fluids, is net positive 14 liters in the past three days and her weight is up by 16 kg. There is some slow oozing from bilateral JLUIS drains. The patient was given blood yesterday along with FFP. A total of 6 units of red blood cells, 2 FFP and 2 albumin have been transfused. Minimal amounts of hypotension but able to wean off vasopressors for the most part yesterday. Patient remains sedated on mechanical ventilation, does awaken and respond appropriately to tactile stimuli. This morning, endotracheal tube was advanced into the patient by 2 cm based on chest x-ray. Surgery was at bedside and discussed plan. There is concern for ongoing ischemia of the gut, less concern for active hemorrhage. Agree with potential volume overload, therefore IV fluids were stopped. PHYSICAL EXAMINATION: VITAL SIGNS: Temperature is 99.5, pulse is 107, respiratory rate is 25 with a blood pressure of 115/100, oxygen saturation is 100% on 0.25 FIO2. GENERAL: Patient sedated on mechanical ventilation, responds appropriately and moves extremities. HEENT: Sclera clear, anicteric. Pupils equal and reactive to light. Mucous membranes are moist. Tongue is midline. NECK: Supple. No tracheal deviation or mass. LYMPH: No cervical, supraclavicular or axillary adenopathy. CARDIAC: Tachycardic S1 and S2 without audible murmur, rub or gallop. PULMONARY: Fairly clear without rales, rhonchi or wheezes. No dullness to percussion. ABDOMEN: Fresh postop abdomen. JLUIS drains present with minimal amounts of serosanguinous fluid. Ostomy is a darker red without evidence of infection, some minimal amounts of blood from the ostomy site. EXTREMITIES: Mariya in the right leg are present from recent pinning procedure. Nails without clubbing or cyanosis. SKIN: Without rash, jaundice or bruising. No evidence of livido reticularis. LABORATORY DATA: Laboratory evaluation shows a pH of 7.46, pCO2 25, PaO2 of 78. Sodium is 148, potassium is 3.4 with a chloride of 121, bicarbonate 20, BUN 14, creatinine 0.38, glucose 136. Calcium is 7.0. Albumin is only 1.5. Blood cultures so far are negative x2. White blood cell count is elevated at 19, bands are down to 5%. Hemoglobin is 8.8 this morning with a hematocrit of 27.1, platelets of 152,000. Glucose is 130. Chest x-ray shows no significant abnormalities with a right subclavian line in place, endotracheal tube is slightly high as mentioned above and was advanced into the patient by 2 cm. OG tube terminates below the diaphragm. IMPRESSION: 1. Respiratory failure secondary to severe sepsis and possible bowel ischemia. Will continue on mechanical ventilation until there is hemodynamic stability and stability with perceived blood loss. Will assess tomorrow for readiness for extubation. 2. Bowel ischemia. Patient has a persistent metabolic acidosis. Blood pressure has increased and currently not on vasopressor therapy. Blood pressure is healthy enough to actually perform diuresis. 3. Sepsis from GI source. Patient is on day #3 of Meropenem. Blood cultures so far negative. Will continue to monitor for other sources of sepsis. 4. Volume overload. Trial of low dose Lasix at 20 mg today with close monitoring of blood pressure. 5. Hypokalemia, replaced per tube. 6. Anemia. Patient received blood overnight, will recheck H and H at 11 o'clock today. Will also recheck coag's at that time. If the patient continues to bleed will recheck coag's on an daily basis and transfuse FFP for at least every 4 units of blood. 7. Protein malnourishment. Albumin may also be slightly lower due to volume overload. Will continue to monitor and start tube feeds when surgically appropriate. 8. DVT prophylaxis, holding Heparin due to the possibility of bleeding. I have added TEDs and Pastor's to her regimen this morning. 9. GI prophylaxis. Patient on Protonix. Overall, patient has guarded outcome. High risk of mortality given bowel ischemia and clinical presentation. MTDD
[2020-07-17 11:46] LABS: HEMATOCRIT 25.1 % (36.0-47.0); HEMOGLOBIN 8.4 g/dl (12.0-15.5)
[2020-07-17] MEDS ORDERED: POTASSIUM CHLORIDE 10% LIQ 20 MEQ/15 ML UDC GT ONE (12:00)
[2020-07-17] MEDS: fentaNYL 100 MCG/2 ML INJECTION (J3010) IV PRN ×2 (12:04→20:13)
[2020-07-17 12:20] LABS: INR 0.98; PROTHROMBIN TIME 13.2 SECONDS (12.5-14.3)
[2020-07-17 12:21] LABS: PARTIAL THROMBOPLASTIN TIME 33.3 SECONDS (24.2-38.5)
[2020-07-17] MEDS ORDERED: MAG SULF 1GM/100ML (MAG RUN) 1 GM in IV 1 EA IV ONE (13:00)
[2020-07-17 18:00] LABS: HEMATOCRIT 25.4 % (36.0-47.0); HEMOGLOBIN 8.4 g/dl (12.0-15.5)
[2020-07-17] MEDS ORDERED: SODIUM CHLORIDE IV SCH ×11 (18:00)
[2020-07-17] MEDS ORDERED: FAT EMULSION IV 20% 500 ML IV SCH (18:00)
[2020-07-17] MEDS ORDERED: SODIUM ACETATE IV SCH ×11 (18:00)
[2020-07-17] MEDS ORDERED: [UNRECOGNIZED DRUG - OTHER] IV SCH ×11 (18:00)
[2020-07-17] MEDS ORDERED: HumaLOG INSULIN (NovoLOG) PER UNIT SC SCH (18:00)
[2020-07-17] MEDS: ACETAMINOPHEN 325 MG/10.15 ML UDC GT PRN (20:12)
[2020-07-18] VITALS (82 sets, daily range): BP systolic 71–201; BP diastolic 42–123
[2020-07-18] MEDS: IPRATROPIUM 0.5MG/ALBUTEROL 2.5MG INH SOL UD 3ML (DUONEB) NEB SCH ×6 (00:14→20:01)
[2020-07-18] MEDS: fentaNYL 100 MCG/2 ML INJECTION (J3010) IV PRN ×5 (00:51→13:47)
[2020-07-18] MEDS: MEROPENEM INJ 1 GM in IV 1 EA IV SCH ×2 (02:04→09:54)
[2020-07-18] MEDS: MIDAZOLAM INJ 2MG/2ML VIAL (J2250 PER 1MG) IV PRN ×5 (02:04→13:47)
[2020-07-18] MEDS: propofoL 1,000 MG in IV 1 EA IV SCH ×8 (03:09→21:34)
[2020-07-18] MEDS: SODIUM CHLORIDE 0.9% INJ 10 ML SYR IV SCH ×2 (05:19→18:00)
[2020-07-18 05:26] LABS: BASO % 0.1 % (0.0-1.0); EOS # 0.3 10^3/uL (0.0-0.5); EOS % 2.5 % (0.0-3.0); HEMATOCRIT 24.9 % (36.0-47.0); LYMPH # 0.6 10^3/uL (1.5-5.0); LYMPH % 5.4 % (24.0-44.0); MEAN CORPUSCULAR HEMOGLOBIN 28.8 pg (27.0-33.0); MEAN CORPUSCULAR HGB CONC 32.1 g/dl (32.0-36.5); MEAN CORPUSCULAR VOLUME 89.6 fl (80.0-96.0); MONO # 0.7 10^3/uL (0.0-0.8); MONO % 6.1 % (2.0-8.0); NEUTROPHILS # 9.5 10^3/uL (1.5-8.5); NEUTROPHILS % 83.5 % (36.0-66.0); PLATELET COUNT, AUTOMATED 140 10^3/uL (150-450); RED BLOOD COUNT 2.78 10^6/uL (4.00-5.40); WHITE BLOOD COUNT 11.4 10^3/uL (4.0-10.0)
[2020-07-18 05:40] LABS: ABG HCO3 20.5 MEQ/L (22.0-26.0); ABG O2 SATURATION 97.1 % (95.0-99.0); ABG PARTIAL PRESSURE CO2 30.4 mmHg (35.0-45.0); ABG PARTIAL PRESSURE O2 91.6 mmHg (75.0-100.0); ABG STANDARD HCO3 21.9 MEQ/L (22.0-26.0); ABG TOTAL CO2 21.4 MEQ/L (22.0-29.0); ABG pH (ARTERIAL) 7.446 UNITS (7.350-7.450)
[2020-07-18 06:03] LABS: ALBUMIN 1.5 GM/DL (3.2-5.2); ALT/SGPT 26 U/L (12-78); BILIRUBIN,TOTAL 0.4 MG/DL (0.2-1.0); BLOOD UREA NITROGEN 11 MG/DL (7-18); CALCIUM LEVEL 7.3 MG/DL (8.5-10.1); CARBON DIOXIDE LEVEL 25 MEQ/L (21-32); CHLORIDE LEVEL 117 MEQ/L (98-107); CHOLESTEROL LEVEL 100 MG/DL (< 200); CPK CREATINE PHOSPHOKINASE 163 U/L (26-192); CREATININE FOR GFR 0.25 MG/DL (0.55-1.30); GLOMERULAR FILTRATION RATE > 60.0 (>51); GLUCOSE, FASTING 107 MG/DL (70-100); LDH LACTATE DEHYDROGENASE 284 U/L (84-246); PHOSPHORUS LEVEL 2.8 MG/DL (2.5-4.9); POTASSIUM SERUM 4.2 MEQ/L (3.5-5.1); SODIUM LEVEL 146 MEQ/L (136-145); TOTAL PROTEIN 4.1 GM/DL (6.4-8.2); TRIGLYCERIDES LEVEL 114 MG/DL (<150)
[2020-07-18] MEDS: HumaLOG INSULIN (NovoLOG) PER UNIT SC SCH ×3 (06:34→18:30)
[2020-07-18] MEDS: PANTOPRAZOLE 40MG VIAL (C9113 PER 1) IV SCH (08:20)
[2020-07-18] MEDS: CHLORHEXIDINE GLUCONATE 0.12 % 15ML UDC (PERIDEX ORAL RINSE) MT SCH ×2 (08:20→21:09)
[2020-07-18] MEDS: NYSTATIN 500,000 U/5 ML SUSP UDC SS SCH ×3 (08:20→21:10)
[2020-07-18] MEDS: ACETAMINOPHEN 325 MG/10.15 ML UDC GT PRN ×2 (08:20→21:09)
--- NOTE | 2020-07-18 08:25 | REP ---
INDICATION: Resp failure COMPARISON: Yesterday TECHNIQUE: Portable FINDINGS: The technique utilized in obtaining the radiograph has magnified the cardiac silhouette and accentuated the interstitial markings. The superior mediastinal structures are midline. The cardiac silhouette is unremarkable in size, shape, and position. The diaphragmatic surfaces of the lungs are regular, and the costophrenic angles are clear. The pulmonary rodriges are clear. The imaged osseous structures are intact. The tubes and line are unchanged IMPRESSION: There is no acute cardiopulmonary disease. <Electronically signed by Ameya Boles > 07/18/20 [id number]
[2020-07-18] MEDS ORDERED: ETOMIDATE INJ 20MG/10ML VIAL As Ordered ONE (10:22)
[2020-07-18] MEDS ORDERED: SUCCINYLCHOLINE INJ 200 MG/10 ML VIAL (J0330) As Ordered ONE (10:23)
[2020-07-18] MEDS ORDERED: methylPREDNISolone 125MG 2ML VIAL IV ONE (10:40)
[2020-07-18] MEDS ORDERED: SUCCINYLCHOLINE INJ 200 MG/10 ML VIAL (J0330) IV STA (11:07)
[2020-07-18] MEDS ORDERED: ETOMIDATE INJ 20MG/10ML VIAL IV STA (11:07)
--- NOTE | 2020-07-18 11:07 | REP ---
INDICATION: s/p tube exchange. COMPARISON: Earlier today TECHNIQUE: Portable FINDINGS: The technique utilized in obtaining the radiograph has magnified the cardiac silhouette and accentuated the interstitial markings. The superior mediastinal structures are midline. The cardiac silhouette is unremarkable in size, shape, and position. The diaphragmatic surfaces of the lungs are regular, and the costophrenic angles are clear. The pulmonary rodriges are clear. The imaged osseous structures are intact. The nasogastric tube appears to have been advanced somewhat. The endotracheal tube and PICC line catheter are unchanged. IMPRESSION: There is no acute cardiopulmonary disease. Findings as described above. <Electronically signed by Ameya Boles > 07/18/20 [id number]
[2020-07-18] MEDS ORDERED: VECURONIUM BROMIDE 10MG VIAL IV STA (11:22)
[2020-07-18] MEDS ORDERED: VECURONIUM BROMIDE 10MG VIAL As Ordered ONE (11:24)
--- NOTE | 2020-07-18 11:36 | REP ---
INDICATION: s/p line placement. COMPARISON: Today at 10:50 a.m. TECHNIQUE: Portable FINDINGS: The technique utilized in obtaining the radiograph has magnified the cardiac silhouette and accentuated the interstitial markings. The superior mediastinal structures are midline. The cardiac silhouette is unremarkable in size, shape, and position. The diaphragmatic surfaces of the lungs are regular, and the costophrenic angles are clear. The pulmonary rodriges are clear. The imaged osseous structures are intact. A left-sided internal jugular central venous catheter has been placed since the last exam the tip of the catheter is at the level of the left brachiocephalic vein/superior vena cava junction. There are no other significant changes from the prior exam. IMPRESSION: As above <Electronically signed by Ameya Boles > 07/18/20 [id number]
[2020-07-18 12:15] LABS: ABG BASE EXCESS -5.4 (-2.0-2.0); ABG HCO3 21.4 MEQ/L (22.0-26.0); ABG PARTIAL PRESSURE CO2 47.7 mmHg (35.0-45.0); ABG PARTIAL PRESSURE O2 70.6 mmHg (75.0-100.0); ABG STANDARD HCO3 19.9 MEQ/L (22.0-26.0); ABG TOTAL CO2 22.8 MEQ/L (22.0-29.0); ABG pH (ARTERIAL) 7.269 UNITS (7.350-7.450)
--- NOTE | 2020-07-18 12:17 | CCN ---
CRITICAL CARE NOTE DATE: 07/18/2020 Critical care time is 1 hour and 2 minutes, this excludes all procedures. SUBJECTIVE: Susanna overnight did not require any further blood transfusions, remains anemic, minimal jennifer-ostomy oozing of blood without significant blood from stool today. The patient did appear to have some guppy breathing. I deflated the cuff. She is able to breath around the cuff. I put her on pressure support of 5/5. She is able to maintain tidal volumes over 500. I suspect that the endotracheal tube is small and to be partially occluded. I am waiting for her to awaken in order to extubate. I believe she deserves a trial of extubation this morning. Will wait for neurologic awareness prior to attempting this unless there is a compelling respiratory reason to do it sooner. The patient did have fever overnight. Currently, temperature is 100.9, pulse is 123 and a sinus tachycardia respiratory rate of 22, blood pressure 123/59 with a MAP of 80. Oxygen saturation is 95% on 0.30% FiO2. OBJECTIVE: General: Sedated on mechanical ventilation, but able to breath spontaneously. As mentioned above, pulling her own breath on pressure support without elevated respiratory shallow breathing index. HEENT: Sclerae clear, anicteric. Pupils equal and reactive to light. Mucous membranes are moist. Currently, eyes pointing down, but this is new. No evidence of seizure activity. Endotracheal tube is in place, but high on the chest x-ray. If the patient remains intubated, will advance endotracheal tube. Pulmonary: Decreased breath sounds bilaterally, but present. No rales, rhonchi or wheezes. No dullness to percussion. Cardiac: Tachycardiac S1, S2 without audible murmur, rub or gallop. No elevated jugular venous pressure (JVP). Abdomen: Soft, nontender. Minimally distended. Ostomy with dark stool. Extremities: There is significant pitting edema, appears to be 3rd spacing and has edema in the arms and legs. There is a small area of infiltration from the left para-antecubital IV that has been removed. Will continue to monitor this. LABORATORY EVALUATION: Shows white blood cell count of 11.4, hemoglobin of 8.0, platelet count of 140. Arterial blood gas 7.45, pCO2 of 30, pAO2 of 92. Sodium 146, potassium 4.2, chloride 117, bicarbonate of 25, BUN 11, creatinine is 0.25 with a glucose of 107, calcium 7.3, AST of 67, ALT 26. Alkaline phosphatase of 195 and albumin of 1.5. Chest x-ray again shows 6 cm above the joshua the endotracheal tube. No infiltrate, no mass, no lesion, no evidence of pneumothorax. IMPRESSION: 1. Respiratory failure secondary to severe sepsis and possible bowel ischemia. This appears to be improving over time. When the patient is neurologically aware, will attempt extubation trial today if she is doing well on pressure support of 5/5. 2. Bowel ischemia. Metabolic acidosis has improving. Still remains very severely protein malnourished, is on total parenteral nutrition (TPN) would recommend converting to oral feeds as soon as surgically appropriate. 3. Sepsis from gastrointestinal (GI) source on day 4 of meropenem. 4. Volume overload with hypoalbuminemia. Will continue to monitor for need for diuretic therapy. 5. Anemia. The patient's hemoglobin and hematocrit over the past 24 hours has remained in the 8 range, has not required blood transfusions. Will continue to monitor. 6. Deep venous thrombosis (DVT) prophylaxis on TEDs and continue holding heparin due to recent questionable bleed. This can be added back likely tomorrow if surgically approved. 7. Gastrointestinal (GI) prophylaxis. The patient is Protonix. Overall the patient's outcome is still guarded, slightly more promising prognosis than yesterday, still high risk of mortality given bowel ischemia and clinical presentation. [facility]
--- NOTE | 2020-07-18 12:35 | CCN ---
CRITICAL CARE NOTE DATE: 07/18/2020 This is an additional 35 minutes to the critical care time that was already performed. This was critical care time at the bedside excluding all procedures. This morning while on spontaneous breathing trial, the patient had very poor air entry. I was not sure if there was endotracheal tube blockage. The tube was too small to perform bronchoscopy through. Therefore, the plan was to exchange the tube because of the respiratory distress that she was having. She was diaphoretic, starting to get hypertensive, tachycardic. Upon extubation and bagging, it was clear that the patient had a very prolonged expiratory phase, significant wheeze. The patient did have a very good cuff leak prior to extubation. With reintubation, the vocal cords appeared normal. There was some minimal swelling of the retinoids but vocal cords were patent. An 8.0 tracheal tube was placed. See the procedure note for this. After intubation, the patient continued to have a very prolonged expiratory phase, actually was unable to be mechanically ventilated until she was bronchodilated and Solu-Medrol was administered. After this, patient still had some dyssynchrony with event, but was improved. I placed her on pressure control due to the bronchospasm and likely chronic obstructive pulmonary disease (COPD) exacerbation, as the patient is a smoker. I placed her at a low respiratory rate to allow for prolonged expiratory phase. Vecuronium was used temporarily for paralysis after the extubation. I then switched her antibiotics to Cipro and Flagyl from meropenem in case there was an allergic reaction, although I cannot confirm this. Patient does appear less bronchospastic, less tachycardic and has a better blood pressure after these interventions were performed. We will let the paralytic wear off to see if she still requires it in order to manage the mechanical ventilation and will obtain and arterial blood gas to monitor for hypercarbia. Patient's oxygen saturation, despite this significant respiratory distress, remained above 90% through this entire episode. Electrocardiogram (EKG) is pending. Will also need to rule out myocardial infarction (PA), as occasionally an PA can present in this fashion. Critical care time was an extra 35 minutes at the bedside excluding all procedures, as mentioned above. After patient was settled, intubated and put on mechanical ventilation, the patient did require central line for additional vascular access, as she had an infiltrated antecubital line and her right peripherally inserted central catheter (PICC) was already accessed with continuous medications.
--- NOTE | 2020-07-18 12:35 | RO ---
OPERATIVE NOTE DATE OF OPERATION: 07/18/2020 PREPROCEDURE DIAGNOSIS: Respiratory distress. POSTPROCEDURE DIAGNOSIS: Respiratory distress. PROCEDURE: Endotracheal intubation. PROCEDURALIST: Mike Gurrola D.O. WATCH CRYSTAL MOLDER: None. ANESTHESIA: 20 of etomidate and 100 succinylcholine were administered for rapid sequence intubation. DESCRIPTION OF PROCEDURE: The patient was having respiratory distress. Had a smaller endotracheal tube in place and there was concern for plugging. Therefore, the patient was extubated and bagged. Saturations did not go below 90% during the entire procedure. The patient was in the supine sniffing position. RSI was intiated with etomidate and succinylcholine. I used GlideScope size #3 with a grade 2 view of the posterior pharynx. The vocal cords appeared normal. There was some swelling of the around the posterior arytenoids, but no proximal airway obstruction. The 8.0 endotracheal tube was easily passed through the vocal cords and the patient was bagged. On bagging, it was noticed that the patient had a severely long prolonged expiratory phase. With slow bagging in coordination with patient effort, the bagging became easier over time. Postprocedure chest x-ray showed appropriate position of the endotracheal tube slightly high and this was advanced; but also, no evidence of pneumothorax, some minimal increase in pulmonary infiltrate. Endotracheal placement was confirmed with end-tidal CO2 monitoring. I personally auscultated the chest. There was improved air entry. See critical care note for further details. [facility]
[2020-07-18] MEDS: metroNIDAZOLE 500 MG in IV 1 EA IV SCH ×2 (12:40→21:09)
[2020-07-18] MEDS: CIPROFLOXACIN 400 MG in IV 1 EA IV SCH (13:55)
[2020-07-18] MEDS ORDERED: NOREPINEPHRINE 4 MG/4 ML AMP As Ordered ONE (14:03)
[2020-07-18] MEDS: NOREPINEPHRINE BITARTRATE 8 MG in D5W 492 ML IV SCH (14:30)
[2020-07-18 15:23] LABS: ABG BASE EXCESS -2.9 (-2.0-2.0); ABG HCO3 21.8 MEQ/L (22.0-26.0); ABG PARTIAL PRESSURE CO2 37.1 mmHg (35.0-45.0); ABG PARTIAL PRESSURE O2 73.6 mmHg (75.0-100.0); ABG TOTAL CO2 22.9 MEQ/L (22.0-29.0); ABG pH (ARTERIAL) 7.386 UNITS (7.350-7.450)
[2020-07-18] MEDS ORDERED: VASOPRESSIN INJ 20 UNITS in NS 499 ML IV SCH (15:30)
[2020-07-18] MEDS ORDERED: AMINO AC/ELECTROLYTE/DEX/CALC 2,000 ML IV SCH (18:00)
[2020-07-18] MEDS ORDERED: FAT EMULSION IV 20% 500 ML IV SCH (18:00)
[2020-07-18] MEDS: methylPREDNISolone 125MG 2ML VIAL IV SCH (18:30)
[2020-07-19] VITALS (48 sets, daily range): BP systolic 65–171; BP diastolic 36–87
[2020-07-19] MEDS: IPRATROPIUM 0.5MG/ALBUTEROL 2.5MG INH SOL UD 3ML (DUONEB) NEB SCH ×6 (00:12→19:14)
[2020-07-19] MEDS: propofoL 1,000 MG in IV 1 EA IV SCH ×7 (00:32→22:45)
[2020-07-19] MEDS: HumaLOG INSULIN (NovoLOG) PER UNIT SC SCH ×5 (00:55→23:35)
[2020-07-19] MEDS: CIPROFLOXACIN 400 MG in IV 1 EA IV SCH ×2 (00:55→13:00)
[2020-07-19] MEDS: methylPREDNISolone 125MG 2ML VIAL IV SCH ×3 (02:12→18:37)
[2020-07-19] MEDS: NOREPINEPHRINE BITARTRATE 8 MG in D5W 492 ML IV SCH ×2 (03:30→10:46)
[2020-07-19] MEDS: metroNIDAZOLE 500 MG in IV 1 EA IV SCH ×3 (04:04→20:17)
[2020-07-19] MEDS: fentaNYL 100 MCG/2 ML INJECTION (J3010) IV PRN ×3 (04:48→18:38)
[2020-07-19 05:34] LABS: BASO % 0.3 % (0.0-1.0); HEMATOCRIT 24.7 % (36.0-47.0); LYMPH # 0.5 10^3/uL (1.5-5.0); LYMPH % 4.3 % (24.0-44.0); MEAN CORPUSCULAR HGB CONC 32.4 g/dl (32.0-36.5); MEAN CORPUSCULAR VOLUME 89.5 fl (80.0-96.0); MONO # 0.6 10^3/uL (0.0-0.8); MONO % 5.1 % (2.0-8.0); NEUTROPHILS # 9.3 10^3/uL (1.5-8.5); NEUTROPHILS % 86.1 % (36.0-66.0); PLATELET COUNT, AUTOMATED 144 10^3/uL (150-450); RED BLOOD COUNT 2.76 10^6/uL (4.00-5.40); WHITE BLOOD COUNT 10.8 10^3/uL (4.0-10.0)
[2020-07-19 05:52] LABS: ABG BASE EXCESS 1.5 (-2.0-2.0); ABG O2 SATURATION 98.9 % (95.0-99.0); ABG PARTIAL PRESSURE CO2 34.8 mmHg (35.0-45.0); ABG STANDARD HCO3 25.8 MEQ/L (22.0-26.0); ABG TOTAL CO2 26.1 MEQ/L (22.0-29.0); ABG pH (ARTERIAL) 7.474 UNITS (7.350-7.450)
[2020-07-19] MEDS: SODIUM CHLORIDE 0.9% INJ 10 ML SYR IV SCH ×2 (06:00→17:59)
[2020-07-19 06:03] LABS: ALBUMIN 1.5 GM/DL (3.2-5.2); ALT/SGPT 31 U/L (12-78); BILIRUBIN,TOTAL 0.4 MG/DL (0.2-1.0); BLOOD UREA NITROGEN 13 MG/DL (7-18); CALCIUM LEVEL 7.8 MG/DL (8.5-10.1); CARBON DIOXIDE LEVEL 28 MEQ/L (21-32); CHLORIDE LEVEL 112 MEQ/L (98-107); CHOLESTEROL LEVEL 118 MG/DL (< 200); CPK CREATINE PHOSPHOKINASE 78 U/L (26-192); GLOMERULAR FILTRATION RATE > 60.0 (>51); GLUCOSE, FASTING 151 MG/DL (70-100); LDH LACTATE DEHYDROGENASE 373 U/L (84-246); PHOSPHORUS LEVEL 2.8 MG/DL (2.5-4.9); SODIUM LEVEL 143 MEQ/L (136-145); TRIGLYCERIDES LEVEL 131 MG/DL (<150)
--- NOTE | 2020-07-19 08:33 | REP ---
INDICATION: Resp failure. COMPARISON: 07/18/2020 a at 11:20 a.m. TECHNIQUE: Portable FINDINGS: The technique utilized in obtaining the radiograph has magnified the cardiac silhouette and accentuated the interstitial markings. The cardiomediastinal silhouette is unchanged. The patient is tilted rotated to the right. The exposure was taken during expiration. The tubes and lines are unchanged. Allowing for the differences in the technical factors between the examinations the lung rodriges appear stable. No definite new abnormal opacities have developed. There is no change in the osseous structures. IMPRESSION: No significant change other than technique. <Electronically signed by Ameya Boles > 07/19/20 [id number]
[2020-07-19] MEDS: PANTOPRAZOLE 40MG VIAL (C9113 PER 1) IV SCH (09:07)
[2020-07-19] MEDS: NYSTATIN 500,000 U/5 ML SUSP UDC SS SCH ×3 (09:07→20:25)
[2020-07-19] MEDS: CHLORHEXIDINE GLUCONATE 0.12 % 15ML UDC (PERIDEX ORAL RINSE) MT SCH ×2 (09:07→20:25)
[2020-07-19] MEDS: ACETAMINOPHEN 325 MG/10.15 ML UDC GT PRN (09:08)
[2020-07-19] MEDS ORDERED: FUROSEMIDE 40 MG TAB PO ONE (10:00)
[2020-07-19] MEDS ORDERED: NS 1,000 ML IV ONE (10:40)
[2020-07-19] MEDS ORDERED: fentaNYL 100 MCG/2 ML INJECTION (J3010) As Ordered ONE (10:44)
[2020-07-19] MEDS ORDERED: MIDAZOLAM INJ 2MG/2ML VIAL (J2250 PER 1MG) As Ordered ONE ×2 (10:44→14:37)
[2020-07-19] MEDS ORDERED: propofoL 200 MG/20 ML VIAL As Ordered ONE (10:45)
[2020-07-19] MEDS ORDERED: ROCURONIUM BROMIDE 50 MG/5 ML VIAL As Ordered ONE ×3 (10:45→14:31)
[2020-07-19] MEDS ORDERED: PHENYLEPHRINE 10MG/ML 1ML VIAL (J2370 PER 1) As Ordered ONE (10:47)
[2020-07-19] MEDS ORDERED: KETAMINE HCL 200 MG/20 ML VIAL As Ordered ONE (11:30)
[2020-07-19] MEDS ORDERED: ATROPINE SULF 1MG/10ML SYRINGE (J0461) As Ordered ONE (11:31)
[2020-07-19] MEDS ORDERED: metroNIDAZOLE/NACL 500MG(5MG/ML) 100ML BAG (S0030) As Ordered ONE (12:58)
[2020-07-19] MEDS ORDERED: CIPROFLOXACIN/D5W 400 MG/200 ML BAG (J0744) As Ordered ONE (13:00)
[2020-07-19] MEDS ORDERED: VASOPRESSIN INJ 20 UNITS/ML VIAL As Ordered ONE (14:32)
[2020-07-19] MEDS ORDERED: PHENYLephrine 500MCG 5ML (100MCG/ML) SYRINGE As Ordered ONE (14:32)
[2020-07-19] MEDS ORDERED: fentaNYL 100 MCG/2 ML INJECTION (J3010) IV PRN (16:10)
[2020-07-19] MEDS ORDERED: NS 1,000 ML IV SCH (16:10)
[2020-07-19 16:21] LABS: ABG BASE EXCESS -4.8 (-2.0-2.0); ABG HCO3 20.6 MEQ/L (22.0-26.0); ABG O2 SATURATION 97.3 % (95.0-99.0); ABG PARTIAL PRESSURE CO2 39.6 mmHg (35.0-45.0); ABG STANDARD HCO3 20.5 MEQ/L (22.0-26.0); ABG TOTAL CO2 21.9 MEQ/L (22.0-29.0); ABG pH (ARTERIAL) 7.335 UNITS (7.350-7.450)
[2020-07-19 17:07] LABS: HEMATOCRIT 39.6 % (36.0-47.0); MEAN CORPUSCULAR HEMOGLOBIN 28.4 pg (27.0-33.0); MEAN CORPUSCULAR HGB CONC 33.1 g/dl (32.0-36.5); MEAN CORPUSCULAR VOLUME 85.7 fl (80.0-96.0); PLATELET COUNT, AUTOMATED 139 10^3/uL (150-450); RED BLOOD COUNT 4.62 10^6/uL (4.00-5.40); WHITE BLOOD COUNT 19.7 10^3/uL (4.0-10.0)
[2020-07-19 17:08] LABS: HEMOGLOBIN 13.1 g/dl (12.0-15.5)
[2020-07-19 17:23] LABS: ALBUMIN 1.3 GM/DL (3.2-5.2); ALT/SGPT 26 U/L (12-78); BILIRUBIN,TOTAL 0.5 MG/DL (0.2-1.0); BLOOD UREA NITROGEN 12 MG/DL (7-18); CALCIUM LEVEL 6.9 MG/DL (8.5-10.1); CARBON DIOXIDE LEVEL 23 MEQ/L (21-32); CHLORIDE LEVEL 115 MEQ/L (98-107); CHOLESTEROL LEVEL 98 MG/DL (< 200); CPK CREATINE PHOSPHOKINASE 107 U/L (26-192); GLOMERULAR FILTRATION RATE > 60.0 (>51); GLUCOSE, FASTING 118 MG/DL (70-100); LDH LACTATE DEHYDROGENASE 346 U/L (84-246); PHOSPHORUS LEVEL 2.8 MG/DL (2.5-4.9); POTASSIUM SERUM 3.3 MEQ/L (3.5-5.1); SODIUM LEVEL 144 MEQ/L (136-145); TRIGLYCERIDES LEVEL 131 MG/DL (<150)
[2020-07-19] MEDS ORDERED: SODIUM CHLORIDE IV SCH ×8 (18:00)
[2020-07-19] MEDS ORDERED: SODIUM ACETATE IV SCH ×8 (18:00)
[2020-07-19] MEDS ORDERED: [UNRECOGNIZED DRUG - OTHER] IV SCH ×8 (18:00)
[2020-07-19] MEDS ORDERED: FAT EMULSION IV 20% 500 ML IV SCH (18:00)
--- NOTE | 2020-07-19 19:05 | RO ---
OPERATIVE NOTE DATE OF OPERATION: 07/18/2020 PREOPERATIVE DIAGNOSIS: Respiratory distress. POSTOPERATIVE DIAGNOSIS: Obstructing airway mucous plug PROCEDURE: Bronchoscopy. SURGEON: Dr. Mike Gurrola DESCRIPTION OF PROCEDURE: Patient was having respiratory distress on mechanical ventilation, deemed urgent to evaluate the airway. I performed bronchoscopy first with a direct vision scope with Cetacaine spray. A time-out was performed with 2-patient identifiers, identifying correct site, correct procedure. This was done urgently. No consent was obtained. Bronchoscope was inserted into the airway. There was a large ball valving, what appeared to be collection of mucus at the end of the tracheal tube, blocking the entire outflow. the mucous collection as not allowing air to be exhaled, but air was able to be inhaled. Through significant amounts of debris, the abnormality was so large that I switched to a trauma scope. I called the operating room (OR) and had the OR bring up the 1T190 bronchoscope with a viewing tower. The 1T190 bronchoscope was inserted with Cetacaine spray into the airway. Again, ball valving obstructing lesion with debridement, saline, forceps, biopsies, and a trial of an airway net. Finally, the obstructive lesion was able to be removed. It appeared to be mostly mucus. Some appeared to be foreign material, such as food debris, plant material. It was noted after clearing all the airways there was a film over the trachea and appeared to be a pseudomembrane over the proximal trachea down to the level of the joshua. It was fairly friable. After all airways were suctioned and cleared, patient had better ventilation, placed on mechanical ventilation. Will check a blood gas in 1 hour. Biopsies were sent for pathology and a bronchoalveolar lavage (BAL) was sent for Gram stain. [facility]
--- NOTE | 2020-07-19 19:05 | CCN ---
CRITICAL CARE NOTE DATE: 07/19/2020 CRITICAL CARE TIME: One hour and 42 minutes. This excludes all procedures. SUBJECTIVE: Susanna is now postoperative day #5 from bowel resection for bowel ischemia, sepsis, status post sigmoidectomy, partial rectal resection, had four days of meropenem, now day #2 of Saniya Calderon. Yesterday, the patient had near complete airway obstruction from mucous plugging which required significant suctioning, however has improved respiratory status this morning. Arterial blood gas significantly improved to 7.47, pCO2 of 35, pAO2 of 130. The patient remains in sinus tachycardia. EKG did not show any evidence of ischemia yesterday during her event of respiratory distress. There have been no significant arrhythmias on telemetry overnight. The patient is on the hypertensive side. Yesterday was slightly hypotensive. Even on propofol, the patient's systolic blood pressure ranging 130 to 157. OBJECTIVE: Vital signs: Temperature is 100. Pulse is 105. Respiratory rate is 25. Blood pressure is 157/82 with a mean arterial pressure of 107, 100% oxygen saturation on 0.40 FiO2. General: The patient is sedated on mechanical ventilation. Pupils are equal and reactive to light. Mucous membranes are moist without lesions. Endotracheal tube is in place. Neck: Supple. No tracheal deviation or mass. Left IJ is in place without surrounding erythema, exudate or hemorrhage. Lymph: No cervical, supraclavicular or axillary adenopathy. Cardiac: Tachycardic, S-1, S-2 without audible murmur, rub, or gallop. No elevated JVP. Nondisplaced PMI. Pulmonary: Better air entry. No rhonchi, wheeze. There is no prolongation of the expiratory phase as there was yesterday. Abdomen: Soft, nontender, nondistended. No hepatosplenomegaly. No masses or hernia. Ostomy with minimal oozing. JLUIS drain on the left with about 100 to 150 mL of serosanguinous fluid out overnight. Extremities: Bilateral upper and lower extremity edema consistent with third spacing of fluid. Skin is pale without rash, jaundice or bruising. A few tattoos are present. No jaundice. LABORATORY EVALUATION: Shows a white blood cell count of 10.8, hemoglobin 8.0, platelet count of 144, potassium 4.0, sodium 143, chloride 112, bicarb of 28, BUN of 13, creatinine of 0.30, glucose of 151. Calcium is 7.8. Albumin is 1.5. Alk phos is up. LDH is up slightly to 215 and 373 respectively. Arterial blood gas as mentioned above. Chest x-ray is significantly shifted, was not taken in the midline. The left IJ is present in appropriate position. Right PICC is present and in appropriate position. Endotracheal tube is in place. There does not appear to be a new infiltrated, mass or lesion. No significant pleural effusion. IMPRESSION: 1. Respiratory failure, probable aspiration pneumonia on admission based on the bronchoscopy from yesterday. We will awaken the patient and trial of spontaneous breathing trial this morning. 2. Hypertension. I have added Norvasc and Lasix in anticipation of stopping propofol for possible extubation today. 3. Status post sigmoid and partial rectal resection for bowel ischemia. Continuing to monitor for sepsis, minimal JLUIS drainage output. 4. Severe protein malnourishment with severe hypoalbuminemia and third spacing of fluid. Lasix given today. We will continue to monitor blood pressure. 5. DVT prophylaxis. On TEDs and Kendalls because of history of anemia and concern for bleeding. The patient with history of gastric bypass surgery, possibility of being vitamin K deficient. 6. Anemia. No indication of requiring transfusion. Hemoglobin has been fairly stable over the past 24 hours. We will continue to monitor for signs and symptoms of blood loss. 7. GI prophylaxis. On Protonix. Overall, the patient's prognosis remains guarded. We will continue to monitor for sepsis. We will continue to monitor culture data as it returns and adjust accordingly. I have decreased her Solu-Medrol down to 60 which was placed due to a respiratory vent yesterday.
--- NOTE | 2020-07-19 19:06 | RO ---
OPERATIVE NOTE DATE OF OPERATION: 07/18/2020 PREOPERATIVE DIAGNOSIS: Critical illness, sepsis, need for vascular access. POSTOPERATIVE DIAGNOSIS: Critical illness, sepsis, need for vascular access. PROCEDURE: Left triple-lumen venous catheter. SURGEON: Dr. Mike Gurrola ANESTHESIA: Patient was already sedated on mechanical ventilation. Because of critical illness, sepsis, and need for critical access deemed urgent in order to provide adequate sedation for the patient to control mechanical ventilation, this was deemed an urgent, emergent procedure. Patient was unable to give consent at the time. Chlorhexidine was applied to the right internal jugular (IJ). Patient was placed in the supine position. Patient was prepped and draped with chlorhexidine, full barrier precautions. Ultrasound was used under sterile technique to identify the large left IJ. The raulseryn syringe was introduced into the left internal jugular vein on the first pass, the wire was thread through the needle. Needle was removed, christoph in the skin was made, and the triple-lumen catheter was placed via modified Seldinger technique. Wire was removed, and triple-lumen was sutured in at 15 cm. All three ports returned venous blood flow and flushed easily. Sterile impregnated dressing was applied over the site. There were no observed complications. [facility]
--- NOTE | 2020-07-19 19:07 | ECGEPIP ---
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
[2020-07-19] MEDS: MIDAZOLAM INJ 2MG/2ML VIAL (J2250 PER 1MG) IV PRN (22:49)
[2020-07-20] VITALS (23 sets, daily range): BP systolic 86–182; BP diastolic 40–114
[2020-07-20] MEDS: IPRATROPIUM 0.5MG/ALBUTEROL 2.5MG INH SOL UD 3ML (DUONEB) NEB SCH ×6 (00:27→19:16)
[2020-07-20] MEDS: CIPROFLOXACIN 400 MG in IV 1 EA IV SCH ×2 (00:30→12:58)
[2020-07-20] MEDS: propofoL 1,000 MG in IV 1 EA IV SCH ×8 (01:42→22:13)
[2020-07-20] MEDS: metroNIDAZOLE 500 MG in IV 1 EA IV SCH ×3 (03:18→20:10)
[2020-07-20] MEDS: methylPREDNISolone 125MG 2ML VIAL IV SCH (03:18)
[2020-07-20] MEDS: MIDAZOLAM INJ 2MG/2ML VIAL (J2250 PER 1MG) IV PRN ×5 (04:34→23:43)
[2020-07-20] MEDS: NOREPINEPHRINE BITARTRATE 8 MG in D5W 492 ML IV SCH (05:29)
[2020-07-20] MEDS: fentaNYL 100 MCG/2 ML INJECTION (J3010) IV PRN ×4 (05:29→23:51)
[2020-07-20 05:41] LABS: ABG BASE EXCESS -1.3 (-2.0-2.0); ABG HCO3 21.9 MEQ/L (22.0-26.0); ABG O2 SATURATION 98.2 % (95.0-99.0); ABG PARTIAL PRESSURE CO2 31.7 mmHg (35.0-45.0); ABG PARTIAL PRESSURE O2 118.7 mmHg (75.0-100.0); ABG STANDARD HCO3 23.4 MEQ/L (22.0-26.0); ABG TOTAL CO2 22.9 MEQ/L (22.0-29.0); ABG pH (ARTERIAL) 7.457 UNITS (7.350-7.450)
[2020-07-20 05:45] LABS: HEMATOCRIT 30.7 % (36.0-47.0); HEMOGLOBIN 10.4 g/dl (12.0-15.5); MEAN CORPUSCULAR HEMOGLOBIN 28.6 pg (27.0-33.0); MEAN CORPUSCULAR HGB CONC 33.9 g/dl (32.0-36.5); MEAN CORPUSCULAR VOLUME 84.3 fl (80.0-96.0); PLATELET COUNT, AUTOMATED 164 10^3/uL (150-450); RED BLOOD COUNT 3.64 10^6/uL (4.00-5.40); WHITE BLOOD COUNT 20.1 10^3/uL (4.0-10.0)
[2020-07-20] MEDS: SODIUM CHLORIDE 0.9% INJ 10 ML SYR IV SCH ×2 (05:51→15:40)
[2020-07-20] MEDS: HumaLOG INSULIN (NovoLOG) PER UNIT SC SCH ×3 (05:52→17:23)
[2020-07-20 06:18] LABS: ALBUMIN 1.2 GM/DL (3.2-5.2); ALT/SGPT 19 U/L (12-78); BILIRUBIN,DIRECT 0.1 MG/DL (0.0-0.2); BILIRUBIN,TOTAL 0.3 MG/DL (0.2-1.0); BLOOD UREA NITROGEN 14 MG/DL (7-18); CARBON DIOXIDE LEVEL 24 MEQ/L (21-32); CHLORIDE LEVEL 114 MEQ/L (98-107); CREATININE FOR GFR 0.27 MG/DL (0.55-1.30); GLOMERULAR FILTRATION RATE > 60.0 (>51); GLUCOSE, FASTING 162 MG/DL (70-100); POTASSIUM SERUM 3.8 MEQ/L (3.5-5.1); SODIUM LEVEL 144 MEQ/L (136-145); TOTAL PROTEIN 3.9 GM/DL (6.4-8.2)
--- NOTE | 2020-07-20 09:26 | CCN ---
CRITICAL CARE NOTE DATE: 07/20/2020 CRITICAL CARE TIME: 1 hour 3 minutes; this excludes all procedures. SUBJECTIVE: At bedside this morning, the case was reviewed. The patient was taken back to the OR yesterday due to findings of bleeding. There was also evidence of necrosis and further resection was performed. There is a rectal tube in place currently because there was some necrosis of the posterior wall of the rectum. The patient is actually hypertensive; not requiring vasopressive therapy, and actually requiring antihypertensive therapy. Currently has a sinus tachycardia with a heart rate of 116. The plan is to attempt to feed with trickle tube feeds today. Likely a trial of extubation tomorrow. Due to recent OR and critical illness events over the past 24 hours, will monitor on mechanical ventilation and attempt a spontaneous breathing trial in the morning. OBJECTIVE: VITAL SIGNS: Temperature is 99.6, pulse 104 to 123, respiratory rate 19, blood pressure 157/64. Oxygen saturation is 96% on 0.35 FiO2. Respiratory rate ranges from 17 to 19. GENERAL: The patient is sedated on mechanical ventilation. Does have appropriate movements. HEENT: Sclerae clear, anicteric. Pupils equal and reactive to light. Mucous membranes are moist without lesions. Oropharynx without erythema or exudate. NECK: Supple. No tracheal deviation. Left IJ in place without surrounding erythema or exudate. Right PICC line in place. PULMONARY: Clear to auscultation without rales, rhonchi, or wheezes. No dullness to percussion. No accessory muscle. CARDIAC: Regular tachycardic, S1, S2 without audible murmur, rub, or gallop. No elevated JVP, but there continues to be systemic third spacing of fluid. ABDOMEN: Soft. Post-surgical abdomen with JLUIS drains draining serosanguineous fluids. No distention. EXTREMITIES: As mentioned above with edema. SKIN: Pale without rash, jaundice, or bruising. LABORATORY DATA: Shows sodium 144, potassium 3.8, chloride 114, bicarb 24, BUN 14, creatinine 0.27 with a glucose of 162. Albumin is 1.2. Arterial blood gas shows a pH of 7.46, pCO2 of 32, PaO2 of 119 on 0.35 FiO2. White count is up to 20.1, hemoglobin 10.4 with a platelet count of 164,000. IMAGING DATA: Chest x-ray from this morning shows endotracheal tube in good position. PICC line and left IJ in good position. No significant infiltrate, mass, or lesion within the lung rodriges. No evidence of pneumothorax. No pleural effusion. No air under the diaphragm. IMPRESSION AND PLAN: 1. Respiratory failure from abdominal sepsis. Continue antibiotics. The patient is on day #3 of Cipro and Flagyl and previously had four days of meropenem prior to that. Now postoperative day #6 and postoperative day #1 from bowel resection x2. Will plan on spontaneous breathing trial in the morning. 2. Hypertension. Norvasc was added. Blood pressure has been tenuous and therefore, we will need to monitor closely. Goal blood pressure between 100 and 150 systolic. 3. Hyperglycemia treated with insulin within the total parenteral nutrition (TPN) and coverage. Blood glucose has remained below 180. 4. Severe protein-calorie malnourishment. Attempting trickle feeds today. TPN was rewritten. Because of the severe hypoalbuminemia, the patient does have significant third spacing of fluid. 5. Deep vein thrombosis (DVT) prophylaxis on TEDs and Kendalls because of the history of anemia and concern for recent bleeding. The patient does have a history of gastric bypass surgery and possibly may be vitamin K deficient making it easier for her to bleed. At this point in time, balancing bleeding and hypercoagulable state. 6. Anemia. At this point in time, no indication for transfusion. The patient was transfused yesterday. The total number of transfusions includes 10 red blood cells, 2 fresh frozen plasma (FFP), and two albumin 5% administrations. 7. Gastrointestinal (GI) prophylaxis with Protonix. Overall prognosis remains guarded because of the significant abnormalities with her abdomen with the possibility of continued bowel ischemia. If the patient trends towards improvement, we will attempt extubation tomorrow.
[2020-07-20] MEDS: PANTOPRAZOLE 40MG VIAL (C9113 PER 1) IV SCH (09:44)
[2020-07-20] MEDS: NYSTATIN 500,000 U/5 ML SUSP UDC SS SCH ×3 (09:44→20:10)
[2020-07-20] MEDS: CHLORHEXIDINE GLUCONATE 0.12 % 15ML UDC (PERIDEX ORAL RINSE) MT SCH ×2 (09:46→20:10)
--- NOTE | 2020-07-20 10:43 | REP ---
INDICATION: Resp failure. COMPARISON: 07/19/2020. TECHNIQUE: Single portable AP view of the chest was performed. FINDINGS: Right arm PICC line, endotracheal tube and left central venous catheter appear unchanged. No infiltrate is seen in either lung. The heart is normal in size. The mediastinal silhouette is unremarkable. IMPRESSION: Stable exam. <Electronically signed by Dominik Bowen > 07/20/20 1039
[2020-07-20] MEDS: methylPREDNISolone 40MG 1ML VIAL IV SCH ×2 (11:37→18:10)
--- NOTE | 2020-07-20 11:42 | ROOPDOC ---
[facility] Report Of Operation Report of Operation DATE OF PROCEDURE: 07/19/20 PREPROCEDURE DIAGNOSES: bleeding, hypotensive shock. POSTPROCEDURE DIAGNOSES: pelvic hematoma, no active bleeding, necrosis of the rectal stump with stool spillage. PROCEDURE: Exploratory Laparotomy, Evacuation of hematoma and stool in the pelvis, debridement of rectal stump, suture closure, oversewing of rectal stump, rectal stump washout, abdomen and pelvic washout. SURGEON: Jerzy Roberts MD USED CAR LOT ATTENDANT: ANESTHESIA: General endoctracheal anesthesia. ESTIMATED BLOOD LOSS: Approximately 200 mL. COMPLICATIONS: remains critically ill, but off pressors, intubated. REMARKS: Patient is 5 days from an initial exploratory laparotomy for abdominal sepsis and found to have ischemic sigmoid colon and rectum. She remains critically ill, intubated. Today removed one of the pelvic drains and upon removal of the pelvic ring there is a persistent gush of blood at the drain sites and subsequently she dropped her blood pressure to 60/40 and became tachycardic in the 150s. She was emergently brought to the operating room for exploration. PROCEDURE NOTE: There was no bleeding at the abdominal wall which I was concerned with initially for possible injury to the inferior epigastric vessels. There is a good amount of blood clot inside of the abdomen and in the pelvis. This was pretty well-organized and not particularly short this happened moments before spit or has been happening for a couple days. She did have a period of hypotension requiring increase in her vasopressors sometime evening into Monday but subsequently stabilized and she has 2 pelvic drains were not putting out a lot. The pelvic hematoma was evacuated. No active bleeding found but her rectal stump was noted to be fully necrosis to with black semisolid stool inside of her pelvis. Debrided, oversewn and the contents of the rectal stump was washed out transanally. I left an omental patch to the oversewn closure in the pelvis. Rest of the small bowel and colon seems to be healthy. Her abdomen was washed out. I left a 22 Montserratian three-way Lopes catheter in her rectum for me to be able to irrigate her rectal stump and continued to drain the stool from it. She remains critically ill though she did have improvement of her hemodynamics and we were able to wean off her legal fat attended the procedure.. DESCRIPTION OF PROCEDURE: Patient was emergently brought to the emergency room. She is intubated and was restarted on her vasopressor. I was holding pressure over the right lower abdominal wall area near the exit site of the prior drain which seems to be controlling the bleeding at least externally. She remains to be hypotensive. She was transferred to the operating room table. She was positioned supine with both arms on an arm board for anesthesia access. The placed an arterial line intraoperatively. Bilateral compression sequential devices placed on both lower extremities were DVT prophylaxis. She already has a orogastric true and a Lopes catheter in place. She has a left-sided colostomy with appliance in place. She has a left Simon-Sykes drain with slight bloody drainage. She has skin jaxson on the midline wound and some hematoma forming over the right lower abdominal wall. The whole abdomen with appliance is in the jaxson and drain was prepped on the field. I obtained my consent with a phone conversation with her daughter is her healthcare proxy. We paused for a surgical timeout using both pre- incision safety checklist to verify correct patient, procedure site and additional clinical information prior to beginning the procedure. I initially thought that this was an abdominal vascular bleeding most likely from the inferior epigastrics so I made an incision at the right lower paramedian line and took this through the subcutaneous tissue. There was some discoloration and thinning of the subcutaneous tissue from the oozing. I located the puncture hole on the anterior sheath and opened this up along the skin incision and bluntly the rectus muscle to look for the inferior epigastrics. I did not find any active bleeding within the muscle wall but I continued to have bloody venous type fluid as it appears darker coming off from the hole from the posterior sheath. I opened this up and started suctioning the fluid of from the right gutter and also on on the pelvis. I placed a Jonny self-retaining retractor to properly evaluate the abdominal wall for the source of the bleeding but I did not find any active bleeding at this point. Thus I decided to open up her prior midline incisions. The jaxson were removed and I cut off the PDS closure and opened up the whole incision. On entering the abdomen there were solid clots that they encountered in between the small bowel loops. I immediately exteriorized the small bowel looking for any bleeding at the mesentery. I followed the tract of the hematoma and ended up scoping a good amount of solidified blood in the pelvis. I did not find any active bleeding or oozing just semisolid blood that also tracks up towards the right gutter. I again evaluated the abdominal wall to look for any source of bleeding and did not find any thing at the anticipated course of the epigastric arteries. At this point patient has been receiving blood and with a bolus of IV fluids as well as the blood that she is receiving that she has stabilized and was no longer dropping her blood pressure. She remains tachycardic and still is slow and still is requiring norepinephrine drip. I then set up my Bookwalter self-retaining retractor for adequate visualization. The small bowel was packed up into the abdominal wall and I placed my abdominal wall retractors and bladder retractor to look into the pelvis. I continued scooping out the solidified hematoma was eventually ended up scoping up black pasty stool. Is distended I realized her rectal stump has necrosed. It continued to remove the solidified portion of stool or has come out and lavaged and irrigated the pelvis until we can see the rectal stump. The anterior wall still seems to be intact but the posterior wall has totally necrosed and this appeared. She still has a good amount of stool within the rectal stump and I con tinued irrigating until I am able to evaluate the wall of the rectum. This is all covered black and started to verify how healthy this cyst the obviously necrotic tissues were debrided sharply with Metzenbaum scissors. I did not really get to healthy tissue and plane with good bleeding. I tried to try to get further down but this was at deep curvature of the sacrococcygeal level at this point and I couldn't get any more purchase in visualization of the posterior wall and separate this from underlying tissues which is quite confused with one another at this point. I have already opened the anterior peritoneal attachments and entered underneath the urinary bladder anteriorly from the prior surgery. I don't believe him past the vaginal septum anteriorly. After controlling for all the spillage, evaluated the pelvis and did not see any active bleeding at this point. I didn't try to evaluate how to close to the rectal stump. I essentially grab the tissues that will hold sutures posteriorly and tried to rotate the anterior wall towards the end partially dissected the anterior wall more to get some movement of the anterior wall towards the fixed posterior wall of the left over rectal stump. I used long throws of 2-0 PDS. After closing this area I temporarily packed the abdomen and covered the abdominal incision with sterile towels. She was then repositioned from supine in the placed in Tadeo stirrups and be placed her on the lithotomy position. I had my nurses set up irrigation using 3 L of warm saline and I placed a whole bottle of Betadine inside of the normal saline bag. Using a pulse lavage interdisciplinary professor I then came down transanally and irrigated as well as evacuated the solid stools from her rectum transanally. I felt that the stump is about 7 cm or so from the anal verge. I used 3 L of the mixture of the saline and Betadine in 3 L of warm saline until he got clear return some irrigation. I then placed a 22 Montserratian three-way Lopes catheter. I cut the tip of the catheter to allow for drainage of bigger portions are slightly solidified portions of the stool gets leftover but this would not allow me to inflate the balloon. Thus a security to her thigh with 2-0 silk's. She was then reprepped and draped and never went changed to fresh counseling lobes. We removed the laparotomy pads and there as expected were some spillage of the irrigation that I did but the closure seems to have held up appropriately and still remains visually intact. I just feel that than that the closure still has a good chance of falling apart her on this tissues does not seem to be healthy. I ran a 20V LOC to oversew the closure and make it more watertight. the pelvis was then irrigated with warm saline until we had sufficiently clear returns. I then freed up the omentum from the transverse colon and rotated this through the right gutter into the pelvis overlying the rectal stump closure and I placed sutures to tack this to the rectal stump to hopefully exclude the rectal stump from the whole of the abdomen. I then examined her small bowel as well as the remainder of the colon was examined and all remaining clots were removed. I irrigated the abdominal cavity with warm saline. I ran the bowel up to her jejunojejunostomy and all the intestines appeared healthy. The mesentery does not show any evidence of any recent bleed. I again examined the right abdominal wall and the does not seem to be any bleeding associated with this. Through the course of the surgery I have removed the prior left Simon-Sykes drain. I place a new Simon-Sykes drain was threaded into the previous tract and left this on top of the omentoplasty. We then used a separate closing tray. Everyone changed gloves. I then closed all my incisions. I closed the posterior sheath of the right paramedian incision with 0 Vicryl that I ran from the inside of the abdomen. I closed the posterior sheath from the level of the bladder flap to about midway to the umbilicus with 0 Vicryl but at this point it was already ripping. She has had a prior high palm mesh on the upper abdomen which I trimmed at the edges of both incision. The portions of mesh together well incorporated laterally in both sides were left in place. I then closed to the fascia on both ends using #1 Strafix. [place] through the closure, I ran the stratafix back. To close the gap at the middle portion of the incision. He separate strands of stress appendix was then ran at the midline with overlap from the 2 prior sutures that were placed. The mesh was incorporated with the closure on the upper part of the incision. This seems to be holding the incision well. The anterior sheath on the paramedian opening likewise was closed with #1 Stratafix. The subcutaneous tissue was irrigated. The skin was loosely closed with jaxson and I placed 1 inch telfa luis in between the jaxson to help drain fluid and prevent accumulation at the subcutaneous tissue at the midline incision. The paramedian incision is closed with jaxson. Her drain was sutured in place. The colostomy appliance was then changed. Her colostomy remains viable and healthy in appearance. Towards the end of the procedure we are able to continue to wean her off the liver low-fat. She received a total of 4 units of packed RBCs. She remains tachycardic but her pressure is improved a lot. She was making clear urine. She was moved to the recovery area, remaining critically ill but in somewhat better hemodynamic condition. COUNTS of sponges and instruments were verify correct. JERZY ROBERTS MD July 20, 2020 09:43
--- NOTE | 2020-07-20 12:10 | IPNPDOC ---
Text Note Date of Service The patient was seen on 07/19/20. NOTE I passed pain this morning and patient just got reintubated. Apparently she was having some problems with her breathing mechanics. They initially tried to leave her extubated but she failed. That she got reintubated. There are currently doing an endoscopy on her. In regards to her colostomy there is only some bloody ostomy output no real stool output as of yet. Otherwise the abdomen seems to been benign and not an issue at this point. I will pass by and re-evaluate once she is more stable respiratory solorzano. VS,Fishbone, I+O VS, Fishbone, I+O Laboratory Tests 07/19/20 16:35 07/20/20 05:31 Vital Signs Date Time Temp Pulse Resp B/P (MAP) Pulse Ox O2 Delivery O2 Flow Rate FiO2 07/20/20 10:00 109 149/66 (80) 95 Ventilator 35 106/63 07/20/20 08:00 98.6 22 07/16/20 14:00 I&O- Last 24 Hours up to 6 AM 07/20/20 05:59 Intake Total 5387.6 ml Output Total 2575 ml Balance 2812.6 ml TAN BAUGH MD July 20, 2020 12:10
[2020-07-20] MEDS ORDERED: HumaLOG INSULIN (NovoLOG) PER UNIT SC SCH (18:00)
[2020-07-20] MEDS ORDERED: FAT EMULSION IV 20% 500 ML IV SCH (18:00)
[2020-07-20] MEDS ORDERED: [UNRECOGNIZED DRUG - OTHER] IV SCH ×10 (18:00)
[2020-07-20] MEDS ORDERED: SODIUM ACETATE IV SCH ×10 (18:00)
[2020-07-20] MEDS ORDERED: SODIUM CHLORIDE IV SCH ×10 (18:00)
[2020-07-21] VITALS (21 sets, daily range): BP systolic 112–206; BP diastolic 54–85
[2020-07-21] MEDS: IPRATROPIUM 0.5MG/ALBUTEROL 2.5MG INH SOL UD 3ML (DUONEB) NEB SCH ×6 (00:09→19:27)
[2020-07-21] MEDS: HumaLOG INSULIN (NovoLOG) PER UNIT SC SCH ×3 (01:01→12:08)
[2020-07-21] MEDS: CIPROFLOXACIN 400 MG in IV 1 EA IV SCH ×2 (01:01→13:37)
[2020-07-21] MEDS: MIDAZOLAM INJ 2MG/2ML VIAL (J2250 PER 1MG) IV PRN ×4 (01:13→06:39)
[2020-07-21] MEDS: fentaNYL 100 MCG/2 ML INJECTION (J3010) IV PRN ×5 (01:15→21:42)
[2020-07-21] MEDS: propofoL 1,000 MG in IV 1 EA IV SCH ×3 (01:16→06:14)
[2020-07-21] MEDS ORDERED: hydrALAZINE 20MG/ML 1ML VIAL (J0360 PER 20MG) IV ONE (01:40)
[2020-07-21] MEDS: methylPREDNISolone 40MG 1ML VIAL IV SCH ×2 (02:45→12:07)
[2020-07-21] MEDS: metroNIDAZOLE 500 MG in IV 1 EA IV SCH ×3 (04:51→20:33)
[2020-07-21 05:20] LABS: ABG BASE EXCESS 2.7 (-2.0-2.0); ABG HCO3 26.5 MEQ/L (22.0-26.0); ABG O2 SATURATION 97.4 % (95.0-99.0); ABG PARTIAL PRESSURE CO2 37.4 mmHg (35.0-45.0); ABG PARTIAL PRESSURE O2 94.8 mmHg (75.0-100.0); ABG STANDARD HCO3 26.9 MEQ/L (22.0-26.0); ABG TOTAL CO2 27.6 MEQ/L (22.0-29.0); ABG pH (ARTERIAL) 7.468 UNITS (7.350-7.450); BASO % 0.1 % (0.0-1.0); EOS % 0.1 % (0.0-3.0); HEMATOCRIT 26.6 % (36.0-47.0); HEMOGLOBIN 8.8 g/dl (12.0-15.5); LYMPH # 0.5 10^3/uL (1.5-5.0); LYMPH % 3.2 % (24.0-44.0); MEAN CORPUSCULAR HEMOGLOBIN 28.5 pg (27.0-33.0); MEAN CORPUSCULAR HGB CONC 33.1 g/dl (32.0-36.5); MEAN CORPUSCULAR VOLUME 86.1 fl (80.0-96.0); MONO # 1.2 10^3/uL (0.0-0.8); MONO % 7.5 % (2.0-8.0); PLATELET COUNT, AUTOMATED 166 10^3/uL (150-450); RED BLOOD COUNT 3.09 10^6/uL (4.00-5.40); WHITE BLOOD COUNT 15.4 10^3/uL (4.0-10.0)
[2020-07-21 05:49] LABS: ALBUMIN 1.4 GM/DL (3.2-5.2); ALT/SGPT 18 U/L (12-78); BILIRUBIN,TOTAL 0.3 MG/DL (0.2-1.0); BLOOD UREA NITROGEN 17 MG/DL (7-18); CALCIUM LEVEL 7.9 MG/DL (8.5-10.1); CARBON DIOXIDE LEVEL 26 MEQ/L (21-32); CHLORIDE LEVEL 112 MEQ/L (98-107); CHOLESTEROL LEVEL 125 MG/DL (< 200); CPK CREATINE PHOSPHOKINASE 56 U/L (26-192); CREATININE FOR GFR 0.18 MG/DL (0.55-1.30); GLOMERULAR FILTRATION RATE > 60.0 (>51); GLUCOSE, FASTING 139 MG/DL (70-100); LDH LACTATE DEHYDROGENASE 262 U/L (84-246); PHOSPHORUS LEVEL 2.9 MG/DL (2.5-4.9); POTASSIUM SERUM 3.7 MEQ/L (3.5-5.1); SODIUM LEVEL 144 MEQ/L (136-145); TOTAL PROTEIN 4.5 GM/DL (6.4-8.2); TRIGLYCERIDES LEVEL 141 MG/DL (<150)
[2020-07-21] MEDS: SODIUM CHLORIDE 0.9% INJ 10 ML SYR IV SCH ×2 (05:52→17:58)
--- NOTE | 2020-07-21 07:44 | IPNPDOC ---
Text Note Date of Service The patient was seen on 07/21/20. NOTE Patient seen this morning. Discussed with her nurses. They were having issues with her being hyper/hypotensive. I started trickle feeding on her and so far tolerating it with minimal residuals (30 mLs). Adequate UO. She is weeping from her midline incision. No signs of active bleeding. No gas or stool output from colostomy, just serosanguenous liquid. POD 7 Ex Lap Low anterior resection (Sigmoid to mid-rectum) for colon ischemia from severe obstipation POD 2 Ex Lap Suture repair of necrotic rectal stump, washout abdomen and rectal pouch, evacuation of hematom hemodynamically improved off pressors x 2 days adequate uo anasarcous remains critically ill If not extubateable today, would like to go up on the tube feeds. Go up 50 mLs/hr and check for residuals I will continue to irrigate rectal stump daily during my rounds consider diuresis if able If tolerating tube feeds probably can d/c tpn by tomorrow VS,Nevin, I+O VS, Nevin, I+O Laboratory Tests 07/21/20 05:04 Vital Signs Date Time Temp Pulse Resp B/P (MAP) Pulse Ox O2 Delivery O2 Flow Rate FiO2 07/21/20 06:14 103 21 187/57 99 Ventilator 35 07/21/20 04:00 99.1 07/16/20 14:00 I&O- Last 24 Hours up to 6 AM 07/21/20 06:00 Intake Total 3667.5 ml Output Total 2055 ml Balance 1612.5 ml TAN BAUGH MD July 21, 2020 07:44
[2020-07-21] MEDS: hydrALAZINE 20MG/ML 1ML VIAL (J0360 PER 20MG) IV SCH ×2 (08:00→14:00)
[2020-07-21] MEDS: PANTOPRAZOLE 40MG VIAL (C9113 PER 1) IV SCH (08:05)
[2020-07-21] MEDS: CHLORHEXIDINE GLUCONATE 0.12 % 15ML UDC (PERIDEX ORAL RINSE) MT SCH (08:05)
[2020-07-21] MEDS: NYSTATIN 500,000 U/5 ML SUSP UDC SS SCH ×3 (08:05→21:46)
[2020-07-21] MEDS ORDERED: FUROSEMIDE 40MG/4ML VIAL (J1940) IV ONE (08:15)
--- NOTE | 2020-07-21 08:15 | REP ---
INDICATION: Resp failure COMPARISON: 07/20/2020 TECHNIQUE: Portable AP view of the chest FINDINGS: Endotracheal tube 3 cm above the joshua. Nasogastric tube courses below left hemidiaphragm. Left IJ line with tip in the SVC/brachiocephalic vein. Right PICC line with tip in the SVC. Cardiac silhouette is normal. Loop recorder identified. Left lower lobe retrocardiac consolidation/atelectasis is suggested and possibly increased from prior examination. Remainder of lung rodriges are relatively stable and without obvious further acute consolidation, effusion, or pneumothorax. Skeletal structures are intact. IMPRESSION: 1. Lines and tubes in stable satisfactory position. 2. Possible left lower lobe/retrocardiac atelectasis and/or consolidation. <Electronically signed by Ghassan Geronimo > 07/21/20 0830
[2020-07-21] MEDS: METOPROLOL TART 12.5 MG PER 1/2 TAB PO SCH ×4 (08:38→23:15)
--- NOTE | 2020-07-21 09:07 | CCN ---
CRITICAL CARE NOTE DATE: 07/21/2020 Critical Care Time was 51 minutes, this excludes all procedures. SUBJECTIVE: Overnight, the patient had some hypertension, Hydralazine was used IV. Patient is already on Norvasc, this is conjunction with Propofol. In order to decrease risk of infection, A-line was removed this morning. The patient is at the point where we can start to perform spontaneous breathing trials again. One is being performed currently. Patient is on pressure support 5/5 and pulling tidal volumes of 875 on an FIO2 of 0.35 without any evidence of hypoxia yet. Overnight, no significant arrhythmias other than sinus tachycardia. Patient continues to ooze bloody drainage around the ostomy, serosanguinous out of the left JLUIS drain is present. OBJECTIVE: VITAL SIGNS: Temperature is 99.1, pulse is 109, respiratory rate is 21, blood pressure ranging 130/55 to a maximum of 209/69. This is via A-line. Respiratory rate is 21, oxygen saturation 99% on 0.35 FIO2. GENERAL: Sedated on mechanical ventilation, awaiting neurologic awareness. Patient squinting eyes, moving arms. HEENT: Sclera clear, anicteric. Pupils equal and reactive to light. Mucous membranes are moist without lesions. Oropharynx is without erythema or exudate. NECK: Supple. No tracheal deviation or mass. Left IJ without surrounding erythema or exudate. LYMPH: No cervical, supraclavicular or axillary adenopathy. CARDIAC: S1 and S2 without audible murmur, rub or gallop. No elevated JVP but there continues to be some peripheral edema. PULMONARY: Decreased breath sounds throughout without rhonchi, rales or wheezes. No dullness to percussion. No accessory muscle use. ABDOMEN: Midline incision with ABD pads. Ostomy in the left lower quadrant with dark bloody drainage. Left JLUIS with more serosanguinous drainage. EXTREMITIES: Right hip and leg jaxson had been removed. There is no dehiscence of the wound. No surrounding erythema or exudate. Otherwise, extremities without edema. SKIN: Pale without rash, jaundice or bruising. MUSCULOSKELETAL: No evidence of joint effusion. No unilateral weakness. No tremor. LABORATORY DATA: Laboratory evaluation shows a white count of 15.4, hemoglobin of 8.8, platelet count of 166,000 with 84% neutrophilia, sodium is 144, potassium is 3.7, chloride 112, bicarbonate 26, BUN 17, creatinine 0.18 with a glucose of 139. Arterial blood gas shows a pH of 7.47, pCO2 of 37, paO2 of 95. Chest x-ray shows endotracheal tube in good position, left IJ and PICC line in good position with the tip of the catheter in the SVC. Minimal increased abnormalities in the left hilum, otherwise clear. No new infiltrate, mass or lesion. No evidence of pneumothorax. IMPRESSION: 1. Respiratory failure secondary to abdominal sepsis and bowel ischemia. Trial of spontaneous breathing trial this morning, awaiting for neurologic recovery. If this occurs this morning, we may have extubation trial. Cipro/flagyl day #4.( Received 4 days of Meropenem prior). Post op day #7 and #2 from bowel resections. 2. Hypertension, I have added metoprolol along with p.r.n. hydralazine. There are hold parameters. 3. Anemia, will continue to monitor likely from abdomen. I do suspect the patient may have vitamin K deficiency, however at this time point in time we are trying to balance bleeding and clotting. Patient is not on any Heparin for DVT prophylaxis. Therefore, will hold off on adding any vitamin K at this point in time. 4. Severe protein malnourishment. Trickle Feeds were started. Will continue TPN. 5. DVT prophylaxis, TEDchio and Pastor's. 6. GI prophylaxis, Protonix. MTDD
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
[2020-07-21] MEDS: MORPHINE 2 MG/ML 1ML VIAL (J2270) IV PRN (23:18)
[2020-07-22] VITALS (7 sets, daily range): BP systolic 118–141; BP diastolic 66–88
[2020-07-22] MEDS: IPRATROPIUM 0.5MG/ALBUTEROL 2.5MG INH SOL UD 3ML (DUONEB) NEB SCH ×7 (00:15→23:58)
[2020-07-22] MEDS: PERCOCET 5MG/325MG TAB PO PRN ×2 (00:42→22:01)
[2020-07-22] MEDS: CIPROFLOXACIN 400 MG in IV 1 EA IV SCH ×2 (00:45→14:06)
[2020-07-22] MEDS: MORPHINE 2 MG/ML 1ML VIAL (J2270) IV PRN ×2 (03:33→11:26)
[2020-07-22] MEDS: metroNIDAZOLE 500 MG in IV 1 EA IV SCH ×3 (05:11→19:54)
[2020-07-22] MEDS: METOPROLOL TART 12.5 MG PER 1/2 TAB PO SCH ×4 (05:12→23:02)
[2020-07-22] MEDS: SODIUM CHLORIDE 0.9% INJ 10 ML SYR IV SCH ×2 (05:13→17:38)
[2020-07-22 05:34] LABS: BASO % 0.2 % (0.0-1.0); EOS # 0.1 10^3/uL (0.0-0.5); EOS % 0.8 % (0.0-3.0); HEMATOCRIT 25.7 % (36.0-47.0); HEMOGLOBIN 8.3 g/dl (12.0-15.5); LYMPH # 0.9 10^3/uL (1.5-5.0); LYMPH % 6.8 % (24.0-44.0); MEAN CORPUSCULAR HEMOGLOBIN 28.4 pg (27.0-33.0); MEAN CORPUSCULAR HGB CONC 32.3 g/dl (32.0-36.5); MONO # 0.7 10^3/uL (0.0-0.8); MONO % 4.8 % (2.0-8.0); NEUTROPHILS # 11.3 10^3/uL (1.5-8.5); NEUTROPHILS % 84.1 % (36.0-66.0); PLATELET COUNT, AUTOMATED 219 10^3/uL (150-450); RED BLOOD COUNT 2.92 10^6/uL (4.00-5.40); WHITE BLOOD COUNT 13.5 10^3/uL (4.0-10.0)
[2020-07-22 05:39] LABS: ABG BASE EXCESS 4.1 (-2.0-2.0); ABG HCO3 26.9 MEQ/L (22.0-26.0); ABG PARTIAL PRESSURE CO2 33.1 mmHg (35.0-45.0); ABG PARTIAL PRESSURE O2 64.9 mmHg (75.0-100.0); ABG STANDARD HCO3 28.1 MEQ/L (22.0-26.0); ABG TOTAL CO2 27.9 MEQ/L (22.0-29.0); ABG pH (ARTERIAL) 7.527 UNITS (7.350-7.450)
[2020-07-22 06:09] LABS: ALBUMIN 1.5 GM/DL (3.2-5.2); ALT/SGPT 26 U/L (12-78); BILIRUBIN,TOTAL 0.9 MG/DL (0.2-1.0); BLOOD UREA NITROGEN 14 MG/DL (7-18); CALCIUM LEVEL 7.6 MG/DL (8.5-10.1); CARBON DIOXIDE LEVEL 27 MEQ/L (21-32); CHLORIDE LEVEL 107 MEQ/L (98-107); CHOLESTEROL LEVEL 141 MG/DL (< 200); CPK CREATINE PHOSPHOKINASE 75 U/L (26-192); CREATININE FOR GFR 0.19 MG/DL (0.55-1.30); GLOMERULAR FILTRATION RATE > 60.0 (>51); GLUCOSE, FASTING 89 MG/DL (70-100); LDH LACTATE DEHYDROGENASE 376 U/L (84-246); PHOSPHORUS LEVEL 3.1 MG/DL (2.5-4.9); POTASSIUM SERUM 3.1 MEQ/L (3.5-5.1); SODIUM LEVEL 140 MEQ/L (136-145); TOTAL PROTEIN 4.2 GM/DL (6.4-8.2); TRIGLYCERIDES LEVEL 161 MG/DL (<150)
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
[2020-07-22] MEDS ORDERED: POTASSIUM CHLORIDE 10 MEQ SR TABLET PO ONE (08:50)
[2020-07-22] MEDS: ALVIMOPAN 12 MG CAPSULE (ENTEREG) PO SCH ×2 (09:00→22:00)
[2020-07-22] MEDS ORDERED: predniSONE 20 MG TAB PO SCH (09:00)
[2020-07-22] MEDS: LACTULOSE 20 GM/30 ML SYRUP UD PO SCH ×2 (09:20→22:01)
[2020-07-22] MEDS: PANTOPRAZOLE 40MG VIAL (C9113 PER 1) IV SCH (09:21)
[2020-07-22] MEDS: NYSTATIN 500,000 U/5 ML SUSP UDC SS SCH ×3 (09:21→22:00)
[2020-07-22] MEDS: FUROSEMIDE 40MG/4ML VIAL (J1940) IV SCH (09:21)
--- NOTE | 2020-07-22 15:54 | IPNPDOC ---
Text Note Date of Service The patient was seen on 07/22/20. NOTE SUBJECTIVE: -Doing better with each day, today I saw her while she was on the sera-steady standing during transfer back to bed. She was conversational, pleasant and still on 2L NC. -She tolerated a full liquid diet. PHYSICAL EXAMINATION: VITAL SIGNS: see below GENERAL APPEARANCE: Ill appearing, NAD HEENT: NCAT, EOMI, PERRLA CARDIOVASCULAR: tachycardic, normal rhythm, no murmurs noted LUNGS: moving air well, bibasilar crackles to mid lung rodriges posteriorly ABDOMEN: Has midline abdominal incision with dressing in place, tender to deep palpation EXTREMITIES: Much improved peripheral anasarca now LE was 1+ though UE remain 3+ with edema, WWP NEUROLOGICAL: CN3-12 intact, moving all extremities PSYCHIATRIC: AO to self and place but not date. Irritable. LABORATORY DATA: WBC 13.5 Hgb 8.3 platelets 219 Na 140 K 3.1 (repleted) Cr 0.19 MICROBIOLOGY: Please see below. ASSESSMENT: 50 yo W who was admitted to [facility] as transfer for Patrick Cuellar with acute hypoxemic respiratory failure and found to have ischemic bowel 2/2 severe obstipation c/b severe sepsis s/p ex-lap x 2 with sigmoid to mid rectal colectomy with colostomy placement c/b hemorrhagic shock 2/2 rectal stump bleeding thus the second ex-lap now hemodynamically stable, extubated with noted now slowed GIB with slowly downtrending H/H. Acute hypoxemic respiratory failure secondary to abdominal sepsis and bowel ischemia: -Extubated 07/21, on 2L NC and weaning as tolerated, with goal saturation >89% gi josue history of COPD -On prednisone 40, will reduce to 30 tomorrow AM and taper down by 10mg Q2D -Incentive spirometry -Abdominal ischemia management per below Bowel ischemia: 2/2 severe obstipation likely i/s/o narcotic pain medications post ortho surgery -continue empiric Cipro/flagyl day #5.( Received 4 days of Meropenem prior). -Post op day #8 and #3 from bowel resections. On 07/15 had resection of the sigmoid to mid rectum. Her postop course was c/b by bleeding and received a total of 10u of pRBCs and 2 FFP and had to return to the OR for another emergent ex-lap on 07/19 during with she had repair of a necrotic rectal stump, abdominal washout and evacuation of a large hematoma. -was on TPN that was discontinued 07/21 and started on full liquid diet, tolerating it. -has 3 way rectal delgado, per surgery -daily CBC Acute blood loss anemia: - will continue to monitor likely from abdomen -Per my discussion with Dr. Gurrola, she suspects that she is likely vitamin K deficient and easily bleeds but is also hypercoagulable at the time. Will hold pharmacologic DVT ppx. -daily CBC -Goal Hgb >8 Hypertension -continue metoprolol and amlodipine Severe protein malnourishment. -full liquid diet Anasarca: likely multifactorial 2/2 massive fluid and blood products resuscitation, as well as hypoalbuminemia with third spacing -s/p some albumin -lasix 40 IV daily, with goal at least net negative 2L/24h -TTE was wnl, without CHF DVT prophylaxis: TEDs and SCDs GI prophylaxis: Protonix. Resolved issues: Sepsis Shock VS,Fishbone, I+O VS, Fishbone, I+O Laboratory Tests 07/22/20 05:09 Vital Signs Date Time Temp Pulse Resp B/P (MAP) Pulse Ox O2 Delivery O2 Flow Rate FiO2 07/22/20 12:00 2.0 07/22/20 12:00 98.8 104 18 141/84 (107) 93 Nasal Cannula 07/21/20 11:00 40 I&O- Last 24 Hours up to 6 AM 07/22/20 06:00 Intake Total 2205 ml Output Total 5990 ml Balance -3785 ml LEXII MONTENEGRO MD July 22, 2020 15:54
[2020-07-23] VITALS: BP 130/72
[2020-07-23] MEDS: CIPROFLOXACIN 400 MG in IV 1 EA IV SCH ×2 (00:35→13:23)
[2020-07-23] MEDS: metroNIDAZOLE 500 MG in IV 1 EA IV SCH ×3 (03:26→20:49)
[2020-07-23 03:29] VITALS: BP 133/71
[2020-07-23] MEDS: IPRATROPIUM 0.5MG/ALBUTEROL 2.5MG INH SOL UD 3ML (DUONEB) NEB SCH ×6 (04:08→23:51)
[2020-07-23] MEDS: SODIUM CHLORIDE 0.9% INJ 10 ML SYR IV SCH ×2 (05:31→17:33)
[2020-07-23] MEDS: METOPROLOL TART 12.5 MG PER 1/2 TAB PO SCH ×3 (05:32→17:32)
[2020-07-23 06:20] LABS: BASO % 0.2 % (0.0-1.0); EOS # 0.2 10^3/uL (0.0-0.5); EOS % 1.7 % (0.0-3.0); HEMATOCRIT 26.5 % (36.0-47.0); HEMOGLOBIN 8.6 g/dl (12.0-15.5); LYMPH # 0.6 10^3/uL (1.5-5.0); LYMPH % 4.2 % (24.0-44.0); MEAN CORPUSCULAR HEMOGLOBIN 28.8 pg (27.0-33.0); MEAN CORPUSCULAR HGB CONC 32.5 g/dl (32.0-36.5); MEAN CORPUSCULAR VOLUME 88.6 fl (80.0-96.0); MONO # 0.6 10^3/uL (0.0-0.8); MONO % 4.5 % (2.0-8.0); NEUTROPHILS # 11.7 10^3/uL (1.5-8.5); NEUTROPHILS % 86.7 % (36.0-66.0); PLATELET COUNT, AUTOMATED 225 10^3/uL (150-450); RED BLOOD COUNT 2.99 10^6/uL (4.00-5.40); WHITE BLOOD COUNT 13.5 10^3/uL (4.0-10.0)
[2020-07-23 06:33] LABS: ALBUMIN 1.6 GM/DL (3.2-5.2); ALT/SGPT 25 U/L (12-78); BILIRUBIN,TOTAL 0.6 MG/DL (0.2-1.0); BLOOD UREA NITROGEN 9 MG/DL (7-18); CALCIUM LEVEL 7.3 MG/DL (8.5-10.1); CARBON DIOXIDE LEVEL 29 MEQ/L (21-32); CHLORIDE LEVEL 104 MEQ/L (98-107); CHOLESTEROL LEVEL 153 MG/DL (< 200); CPK CREATINE PHOSPHOKINASE 46 U/L (26-192); GLOMERULAR FILTRATION RATE > 60.0 (>51); GLUCOSE, FASTING 112 MG/DL (70-100); LDH LACTATE DEHYDROGENASE 392 U/L (84-246); PHOSPHORUS LEVEL 2.8 MG/DL (2.5-4.9); SODIUM LEVEL 138 MEQ/L (136-145); TOTAL PROTEIN 4.2 GM/DL (6.4-8.2); TRIGLYCERIDES LEVEL 129 MG/DL (<150)
--- NOTE | 2020-07-23 07:37 | IPNPDOC ---
Text Note Date of Service The patient was seen on 07/23/20. NOTE Impression and plan She's now postop day 9 following initial expiratory laparotomy, low anterior resection for ischemia of the sigmoid colon and rectum Postop day 4, emergency exploratory laparoscopy, rectal stump necrosis with spillage of stool, pelvic bleeding and hematoma, repair of the rectal stump She had a lot of gas and some stool come out with lactulose, complains of gas cramps, otherwise tolerating full liquids. She tells me she is lactose intolerant. Ill advance her to soft diet today. will place prevena to the midline wound. continue with pt/ot VS,Fishbone, I+O VS, Fishbone, I+O Laboratory Tests 07/23/20 05:30 Vital Signs Date Time Temp Pulse Resp B/P (MAP) Pulse Ox O2 Delivery O2 Flow Rate FiO2 07/23/20 05:32 95 133/71 07/23/20 04:00 2.0 07/23/20 03:29 99.1 16 96 Nasal Cannula 07/21/20 11:00 40 I&O- Last 24 Hours up to 6 AM 07/23/20 06:00 Intake Total 960 ml Output Total 5295 ml Balance -4335 ml TAN BAUGH MD July 23, 2020 07:37
[2020-07-23 08:00] VITALS: BP 128/70
[2020-07-23] MEDS ORDERED: PANTOPRAZOLE 40MG VIAL (C9113 PER 1) IV SCH (09:00)
[2020-07-23] MEDS: FUROSEMIDE 40MG/4ML VIAL (J1940) IV SCH (09:09)
[2020-07-23] MEDS: PANTOPRAZOLE 40MG VIAL (C9113 PER 1) IV SCH (09:10)
[2020-07-23] MEDS: NYSTATIN 500,000 U/5 ML SUSP UDC SS SCH ×3 (09:10→20:49)
[2020-07-23] MEDS: ALVIMOPAN 12 MG CAPSULE (ENTEREG) PO SCH ×2 (09:11→20:49)
[2020-07-23] MEDS: LACTULOSE 20 GM/30 ML SYRUP UD PO SCH ×2 (09:11→20:49)
[2020-07-23] MEDS: POTASSIUM CHLORIDE 10 MEQ SR TABLET PO SCH ×2 (09:14→20:49)
--- NOTE | 2020-07-23 11:48 | IPNPDOC ---
Text Note Date of Service The patient was seen on 07/23/20. NOTE SUBJECTIVE: -No acute complaints. c -Conversational, pleasant -Remains on 2L NC. -Tolerated a soft diet. PHYSICAL EXAMINATION: VITAL SIGNS: see below GENERAL APPEARANCE: Ill appearing, NAD HEENT: NCAT, EOMI, PERRLA CARDIOVASCULAR: tachycardic, normal rhythm, no murmurs noted LUNGS: moving air well, bibasilar crackles to mid lung rodriges posteriorly ABDOMEN: Has midline abdominal incision with dressing in place, tender to deep palpation EXTREMITIES: Much improved peripheral anasarca now LE was 1+ UE now 1+ as well, WWP NEUROLOGICAL: CN3-12 intact, moving all extremities PSYCHIATRIC: AO to self and place but not date. Pleasant, hopeful, motivated. LABORATORY DATA: WBC 13.5 Hgb 8.6 platelets 225 Na 138 K 3.0 (repleted) Cr 0.2 MICROBIOLOGY: Please see below. ASSESSMENT: 50 yo W who was admitted to [facility] as transfer for Patrick Polo with acute hypoxemic respiratory failure and found to have ischemic bowel 2/2 severe obstipation c/b severe sepsis s/p ex-lap x 2 with sigmoid to mid rectal colectomy with colostomy placement c/b hemorrhagic shock 2/2 rectal stump b leeding thus the second ex-lap now hemodynamically stable, extubated with noted now stable H/H. Acute hypoxemic respiratory failure secondary to abdominal sepsis and bowel ischemia: -Extubated 07/21, on 2L NC and weaning as tolerated, with goal saturation >89% given history of COPD -Reduce pred to 30 and taper down by 10mg Q2D -Incentive spirometry -Abdominal ischemia management per below Bowel ischemia: 2/2 severe obstipation likely i/s/o narcotic pain medications post ortho surgery -continue empiric Cipro/flagyl day #6.( Received 4 days of Meropenem prior). -Post op day #9 and #4 from bowel resections. On 07/15 had resection of the sigmoid to mid rectum. Her postop course was c/b by bleeding and received a total of 10u of pRBCs and 2 FFP and had to return to the OR for another emergent ex-lap on 07/19 during with she had repair of a necrotic rectal stump, abdominal washout and evacuation of a large hematoma. -was on TPN that was discontinued 07/21 and started on full liquid diet, and now on soft and tolerating it. -daily CBC Acute blood loss anemia: - will continue to monitor likely from abdomen -Per my discussion with Dr. Gurrola, she suspects that she is likely vitamin K deficient and easily bleeds but is also hypercoagulable at the time. Will hold pharmacologic DVT ppx. -daily CBC -Goal Hgb >8 Hypertension -continue metoprolol and amlodipine Severe protein malnourishment. -soft diet Anasarca: likely multifactorial 2/2 massive fluid and blood products resuscitation, as well as hypoalbuminemia with third spacing -s/p some albumin -lasix 40 IV daily, with goal at least net negative 2L/24h -TTE was wnl, without CHF DVT prophylaxis: TEDs and SCDs GI prophylaxis: Protonix. Resolved issues: Sepsis Shock VS,Fishbone, I+O VS, Fishbone, I+O Laboratory Tests 07/23/20 05:30 Vital Signs Date Time Temp Pulse Resp B/P (MAP) Pulse Ox O2 Delivery O2 Flow Rate FiO2 07/23/20 05:32 95 133/71 07/23/20 04:00 2.0 07/23/20 03:29 99.1 16 96 Nasal Cannula 07/21/20 11:00 40 I&O- Last 24 Hours up to 6 AM 07/23/20 05:59 Intake Total 960 ml Output Total 4145 ml Balance -3185 ml LEXII MONTENEGRO MD July 23, 2020 08:48
[2020-07-23 12:00] VITALS: BP 116/68
[2020-07-23 16:00] VITALS: BP 122/74
[2020-07-23 20:05] VITALS: BP 143/67
[2020-07-23] MEDS: MORPHINE 2 MG/ML 1ML VIAL (J2270) IV PRN (20:18)
[2020-07-23] MEDS: PERCOCET 5MG/325MG TAB PO PRN (22:32)
[2020-07-24] VITALS: BP 133/87
[2020-07-24] MEDS: CIPROFLOXACIN 400 MG in IV 1 EA IV SCH ×2 (00:28→13:24)
[2020-07-24] MEDS: METOPROLOL TART 12.5 MG PER 1/2 TAB PO SCH ×4 (00:28→19:28)
[2020-07-24] MEDS: MORPHINE 2 MG/ML 1ML VIAL (J2270) IV PRN ×2 (01:56→12:53)
[2020-07-24] MEDS: IPRATROPIUM 0.5MG/ALBUTEROL 2.5MG INH SOL UD 3ML (DUONEB) NEB SCH ×6 (03:07→23:05)
[2020-07-24 04:00] VITALS: BP 130/65
[2020-07-24] MEDS: metroNIDAZOLE 500 MG in IV 1 EA IV SCH ×3 (04:13→20:35)
[2020-07-24] MEDS: PERCOCET 5MG/325MG TAB PO PRN ×3 (04:13→20:35)
[2020-07-24] MEDS: SODIUM CHLORIDE 0.9% INJ 10 ML SYR IV SCH ×2 (05:06→18:00)
[2020-07-24 05:35] LABS: BASO % 0.2 % (0.0-1.0); EOS # 0.2 10^3/uL (0.0-0.5); EOS % 1.6 % (0.0-3.0); HEMATOCRIT 26.6 % (36.0-47.0); HEMOGLOBIN 8.4 g/dl (12.0-15.5); LYMPH # 0.6 10^3/uL (1.5-5.0); LYMPH % 5.3 % (24.0-44.0); MEAN CORPUSCULAR HEMOGLOBIN 28.6 pg (27.0-33.0); MEAN CORPUSCULAR HGB CONC 31.6 g/dl (32.0-36.5); MEAN CORPUSCULAR VOLUME 90.5 fl (80.0-96.0); MONO # 0.5 10^3/uL (0.0-0.8); MONO % 4.4 % (2.0-8.0); NEUTROPHILS # 10.3 10^3/uL (1.5-8.5); NEUTROPHILS % 84.5 % (36.0-66.0); PLATELET COUNT, AUTOMATED 244 10^3/uL (150-450); RED BLOOD COUNT 2.94 10^6/uL (4.00-5.40); WHITE BLOOD COUNT 12.1 10^3/uL (4.0-10.0)
[2020-07-24 05:56] LABS: ALBUMIN 1.5 GM/DL (3.2-5.2); ALT/SGPT 28 U/L (12-78); BILIRUBIN,TOTAL 0.5 MG/DL (0.2-1.0); BLOOD UREA NITROGEN 6 MG/DL (7-18); CALCIUM LEVEL 7.4 MG/DL (8.5-10.1); CARBON DIOXIDE LEVEL 30 MEQ/L (21-32); CHLORIDE LEVEL 105 MEQ/L (98-107); CHOLESTEROL LEVEL 140 MG/DL (< 200); CPK CREATINE PHOSPHOKINASE 112 U/L (26-192); GLOMERULAR FILTRATION RATE > 60.0 (>51); GLUCOSE, FASTING 109 MG/DL (70-100); LDH LACTATE DEHYDROGENASE 368 U/L (84-246); PHOSPHORUS LEVEL 3.2 MG/DL (2.5-4.9); POTASSIUM SERUM 3.4 MEQ/L (3.5-5.1); SODIUM LEVEL 139 MEQ/L (136-145); TOTAL PROTEIN 4.1 GM/DL (6.4-8.2); TRIGLYCERIDES LEVEL 125 MG/DL (<150)
[2020-07-24 08:00] VITALS: BP 128/71
[2020-07-24] MEDS: FUROSEMIDE 40MG/4ML VIAL (J1940) IV SCH (09:58)
[2020-07-24] MEDS: PANTOPRAZOLE 40MG VIAL (C9113 PER 1) IV SCH (09:58)
[2020-07-24] MEDS: LACTULOSE 20 GM/30 ML SYRUP UD PO SCH ×2 (09:58→20:34)
[2020-07-24] MEDS: NYSTATIN 500,000 U/5 ML SUSP UDC SS SCH ×3 (09:58→20:35)
[2020-07-24] MEDS: ALVIMOPAN 12 MG CAPSULE (ENTEREG) PO SCH ×2 (10:00→20:35)
[2020-07-24] MEDS: predniSONE 10 MG TAB PO SCH (10:00)
[2020-07-24] MEDS: POTASSIUM CHLORIDE 10 MEQ SR TABLET PO SCH ×2 (10:00→20:34)
--- NOTE | 2020-07-24 10:16 | IPNPDOC ---
Text Note Date of Service The patient was seen on 07/24/20. NOTE SUBJECTIVE: -No acute complaints. -Conversational, pleasant -Tolerated a soft diet, however burping a lot with any PO PHYSICAL EXAMINATION: VITAL SIGNS: see below GENERAL APPEARANCE: Ill appearing, NAD HEENT: NCAT, EOMI, PERRLA CARDIOVASCULAR: tachycardic, normal rhythm, no murmurs noted LUNGS: moving air well, bibasilar crackles to mid lung rodriges posteriorly ABDOMEN: Has midline abdominal incision with dressing in place, tender to deep palpation, hypoactive sounds, [address] EXTREMITIES: Much improved peripheral anasarca now LE edema is trace and UE is 1+ NEUROLOGICAL: CN3-12 intact, moving all extremities PSYCHIATRIC: AO to self and place but not date. LABORATORY DATA: WBC 12.1 Hgb 8.4 platelets 244 Na 139 K 3.4 (repleted) Cr 0.2 MICROBIOLOGY: Please see below. ASSESSMENT: 50 yo W who was admitted to [facility] as transfer for Patrick Cuellar with acute hypoxemic respiratory failure and found to have ischemic bowel 2/2 severe obstipation c/b severe sepsis s/p ex-lap x 2 with sigmoid to mid rectal colectomy with colostomy placement c/b hemorrhagic shock 2/2 rectal stump bleeding thus the second ex-lap now hemodynamically stable, extubated with noted now stable H/H. Acute hypoxemic respiratory failure secondary to abdominal sepsis and bowel isch emia: -Extubated 07/21, on 2L NC and weaning as tolerated, with goal saturation >89% given history of COPD -On pred taper -Incentive spirometry -Abdominal ischemia management per below Bowel ischemia: 2/2 severe obstipation likely i/s/o narcotic pain medications post ortho surgery -continue empiric Cipro/flagyl day #7.( Received 4 days of Meropenem prior). -Post op day #10 and #5 from bowel resections. On 07/15 had resection of the sigmoid to mid rectum. Her postop course was c/b by bleeding and received a total of 10u of pRBCs and 2 FFP and had to return to the OR for another emergent ex-lap on 07/19 during with she had repair of a necrotic rectal stump, abdominal washout and evacuation of a large hematoma. -was on TPN that was discontinued 07/21 and started on full liquid diet, and now on soft diet. -daily CBC Acute blood loss anemia: - will continue to monitor likely from abdomen -Per my discussion with Dr. Gurrola, she suspects that she is likely vitamin K deficient and easily bleeds but is also hypercoagulable at the time. Will hold pharmacologic DVT ppx. -daily CBC -Goal Hgb >8 Hypertension -continue metoprolol and amlodipine Severe protein malnourishment. -soft diet Anasarca: likely multifactorial 2/2 massive fluid and blood products resuscitation, as well as hypoalbuminemia with third spacing -s/p some albumin -lasix 40 IV daily, with goal at least net negative 2L/24h -TTE was wnl, without CHF DVT prophylaxis: TEDs and SCDs GI prophylaxis: Protonix. Resolved issues: Sepsis Shock VS,Fishbone, I+O VS, Fishbone, I+O Laboratory Tests 07/24/20 05:05 07/24/20 06:00 Vital Signs Date Time Temp Pulse Resp B/P (MAP) Pulse Ox O2 Delivery O2 Flow Rate FiO2 07/24/20 10:01 94 131/63 07/24/20 08:00 96.7 18 97 Nasal Cannula 2.0 07/21/20 11:00 40 I&O- Last 24 Hours up to 6 AM 07/24/20 05:59 Intake Total 700 ml Output Total 3300 ml Balance -2600 ml LEXII MONTENEGRO MD July 24, 2020 10:16
[2020-07-24 12:00] VITALS: BP 125/55
[2020-07-24] MEDS: ONDANSETRON 4 MG ORAL DISINTEGRATING TAB PO PRN (12:27)
[2020-07-24 16:00] VITALS: BP 108/77
[2020-07-24 20:00] VITALS: BP 135/65
[2020-07-25] VITALS (7 sets, daily range): BP systolic 96–121; BP diastolic 54–64
[2020-07-25] MEDS: CIPROFLOXACIN 400 MG in IV 1 EA IV SCH ×2 (00:47→13:53)
[2020-07-25] MEDS: PERCOCET 5MG/325MG TAB PO PRN ×4 (00:55→22:28)
[2020-07-25] MEDS: IPRATROPIUM 0.5MG/ALBUTEROL 2.5MG INH SOL UD 3ML (DUONEB) NEB SCH ×6 (03:16→23:40)
[2020-07-25] MEDS: metroNIDAZOLE 500 MG in IV 1 EA IV SCH ×3 (04:34→20:34)
[2020-07-25] MEDS: ACETAMINOPHEN 325 MG/10.15 ML UDC GT PRN (04:34)
[2020-07-25] MEDS: ONDANSETRON 4 MG ORAL DISINTEGRATING TAB PO PRN (04:34)
[2020-07-25] MEDS: SODIUM CHLORIDE 0.9% INJ 10 ML SYR IV SCH ×2 (05:09→15:11)
[2020-07-25] MEDS: METOPROLOL TART 12.5 MG PER 1/2 TAB PO SCH ×4 (05:09→18:00)
[2020-07-25 05:23] LABS: BASO % 0.3 % (0.0-1.0); EOS # 0.2 10^3/uL (0.0-0.5); EOS % 1.4 % (0.0-3.0); HEMATOCRIT 26.8 % (36.0-47.0); HEMOGLOBIN 8.3 g/dl (12.0-15.5); LYMPH # 0.7 10^3/uL (1.5-5.0); LYMPH % 5.4 % (24.0-44.0); MEAN CORPUSCULAR HEMOGLOBIN 28.1 pg (27.0-33.0); MEAN CORPUSCULAR VOLUME 90.8 fl (80.0-96.0); MONO # 0.6 10^3/uL (0.0-0.8); MONO % 4.8 % (2.0-8.0); NEUTROPHILS % 83.3 % (36.0-66.0); PLATELET COUNT, AUTOMATED 221 10^3/uL (150-450); RED BLOOD COUNT 2.95 10^6/uL (4.00-5.40)
[2020-07-25 05:53] LABS: ALBUMIN 1.6 GM/DL (3.2-5.2); ALT/SGPT 32 U/L (12-78); BILIRUBIN,TOTAL 0.4 MG/DL (0.2-1.0); BLOOD UREA NITROGEN 8 MG/DL (7-18); CALCIUM LEVEL 7.9 MG/DL (8.5-10.1); CARBON DIOXIDE LEVEL 28 MEQ/L (21-32); CHLORIDE LEVEL 105 MEQ/L (98-107); CHOLESTEROL LEVEL 140 MG/DL (< 200); CPK CREATINE PHOSPHOKINASE 73 U/L (26-192); CREATININE FOR GFR 0.28 MG/DL (0.55-1.30); GLOMERULAR FILTRATION RATE > 60.0 (>51); GLUCOSE, FASTING 132 MG/DL (70-100); LDH LACTATE DEHYDROGENASE 323 U/L (84-246); PHOSPHORUS LEVEL 3.3 MG/DL (2.5-4.9); POTASSIUM SERUM 3.6 MEQ/L (3.5-5.1); SODIUM LEVEL 139 MEQ/L (136-145); TOTAL PROTEIN 4.8 GM/DL (6.4-8.2); TRIGLYCERIDES LEVEL 113 MG/DL (<150)
[2020-07-25] MEDS: ACETAMINOPHEN TAB 650MG DOSE (2X325MG) PO PRN (06:32)
[2020-07-25] MEDS: POTASSIUM CHLORIDE 10 MEQ SR TABLET PO SCH ×2 (09:00→20:30)
[2020-07-25] MEDS: NYSTATIN 500,000 U/5 ML SUSP UDC SS SCH ×3 (09:29→20:30)
[2020-07-25] MEDS: LACTULOSE 20 GM/30 ML SYRUP UD PO SCH ×2 (09:30→20:30)
[2020-07-25] MEDS: ALVIMOPAN 12 MG CAPSULE (ENTEREG) PO SCH ×2 (09:30→20:30)
[2020-07-25] MEDS: predniSONE 10 MG TAB PO SCH (09:30)
[2020-07-25] MEDS: PANTOPRAZOLE 40MG VIAL (C9113 PER 1) IV SCH (09:31)
[2020-07-25] MEDS: MORPHINE 2 MG/ML 1ML VIAL (J2270) IV PRN ×2 (09:32→15:08)
[2020-07-25] MEDS: FUROSEMIDE 40MG/4ML VIAL (J1940) IV SCH (09:33)
--- NOTE | 2020-07-25 11:02 | IPNPDOC ---
Text Note Date of Service The patient was seen on 07/25/20. NOTE SUBJECTIVE: -No acute complaints. -Conversational, pleasant -Had a low grade temp to 100.8 PHYSICAL EXAMINATION: VITAL SIGNS: see below GENERAL APPEARANCE: Ill appearing, NAD HEENT: NCAT, EOMI, PERRLA CARDIOVASCULAR: tachycardic, normal rhythm, no murmurs noted LUNGS: moving air well, trace bibasilar crackles now, improved ABDOMEN: Has midline abdominal incision with dressing in place, tender to deep palpation, hypoactive sounds, [address] EXTREMITIES: Improved peripheral anasarca now LE edema is trace and UE is 1+ NEUROLOGICAL: CN3-12 intact, moving all extremities PSYCHIATRIC: AO to self and place but not date. LABORATORY DATA: WBC 12 Hgb 8.3 platelets 221 Na 139 K 3.6 Cr 0.28 MICROBIOLOGY: Please see below. ASSESSMENT: 50 yo W who was admitted to [facility] as transfer for Patrick Cuellar with acute hypoxemic respiratory failure and found to have ischemic bowel 2/2 severe obstipation c/b severe sepsis s/p ex-lap x 2 with sigmoid to mid rectal colectomy with colostomy placement c/b hemorrhagic shock 2/2 rectal stump bleeding thus the second ex-lap now hemodynamically stable, extubated with noted now stable H/H. Acute hypoxemic respiratory failure secondary to abdominal sepsis and bowel ischemia: -Extubated 07/21, on 2L NC and weaning as tolerated, with goal saturation >89% given history of COPD -On pred taper, and pred for GI ppx -Incentive spirometry -Abdominal ischemia management per below Bowel ischemia: 2/2 severe obstipation likely i/s/o narcotic pain medications post ortho surgery -continue empiric Cipro/flagyl day #8.( Received 4 days of Meropenem prior). -Post op day #11 and #6 from bowel resections. On 07/15 had resection of the sigmoid to mid rectum. Her postop course was c/b by bleeding and received a total of 10u of pRBCs and 2 FFP and had to return to the OR for another emergent ex-lap on 07/19 during with she had repair of a necrotic rectal stump, abdominal washout and evacuation of a large hematoma. -was on TPN that was discontinued 07/21 and started on full liquid diet, and now on soft diet. -daily CBC Acute blood loss anemia: - will continue to monitor likely from abdomen -Per my discussion with Dr. Gurrola, she suspects that she is likely vitamin K deficient and easily bleeds but is also hypercoagulable at the time. Will hold pharmacologic DVT ppx. -daily CBC -Goal Hgb >8 Hypertension -continue metoprolol and amlodipine Severe protein malnourishment. -soft diet Anasarca: likely multifactorial 2/2 massive fluid and blood products resuscitation, as well as hypoalbuminemia with third spacing, much improved. -s/p some albumin -s/p lasix 40 IV daily, with goal at least net negative 2L/24h. Will monitor output closely without diuretic today, very close to euvolemic at this time on exam -TTE was wnl, without CHF DVT prophylaxis: TEDs and SCDs GI prophylaxis: Protonix. Resolved issues: Sepsis Shock VS,Fishbone, I+O VS, Fishbone, I+O Laboratory Tests 07/25/20 04:51 Vital Signs Date Time Temp Pulse Resp B/P (MAP) Pulse Ox O2 Delivery O2 Flow Rate FiO2 07/25/20 05:40 17 Room Air 07/25/20 05:09 88 103/55 07/25/20 04:00 100.8 97 07/24/20 12:00 2.0 07/21/20 11:00 40 I&O- Last 24 Hours up to 6 AM 07/25/20 06:00 Intake Total 1300 ml Output Total 3515 ml Balance -2215 ml LEXII MONTENEGRO MD July 25, 2020 08:26
[2020-07-26] VITALS: BP 111/57
[2020-07-26] MEDS: CIPROFLOXACIN 400 MG in IV 1 EA IV SCH ×2 (01:16→12:35)
[2020-07-26] MEDS: METOPROLOL TART 12.5 MG PER 1/2 TAB PO SCH ×4 (01:16→17:40)
[2020-07-26] MEDS: PERCOCET 5MG/325MG TAB PO PRN ×4 (02:53→20:28)
[2020-07-26 04:00] VITALS: BP 140/68
[2020-07-26] MEDS: metroNIDAZOLE 500 MG in IV 1 EA IV SCH ×3 (04:08→20:28)
[2020-07-26] MEDS: IPRATROPIUM 0.5MG/ALBUTEROL 2.5MG INH SOL UD 3ML (DUONEB) NEB SCH ×5 (04:11→20:40)
[2020-07-26] MEDS: SODIUM CHLORIDE 0.9% INJ 10 ML SYR IV SCH ×2 (05:37→17:41)
[2020-07-26 06:38] LABS: BASO # 0.1 10^3/uL (0.0-0.2); BASO % 0.7 % (0.0-1.0); EOS # 0.1 10^3/uL (0.0-0.5); EOS % 0.7 % (0.0-3.0); HEMATOCRIT 28.8 % (36.0-47.0); HEMOGLOBIN 9.2 g/dl (12.0-15.5); LYMPH # 0.9 10^3/uL (1.5-5.0); LYMPH % 6.9 % (24.0-44.0); MEAN CORPUSCULAR HEMOGLOBIN 29.1 pg (27.0-33.0); MEAN CORPUSCULAR HGB CONC 31.9 g/dl (32.0-36.5); MEAN CORPUSCULAR VOLUME 91.1 fl (80.0-96.0); MONO # 0.9 10^3/uL (0.0-0.8); MONO % 6.4 % (2.0-8.0); NEUTROPHILS # 10.4 10^3/uL (1.5-8.5); NEUTROPHILS % 77.8 % (36.0-66.0); PLATELET COUNT, AUTOMATED 292 10^3/uL (150-450); RED BLOOD COUNT 3.16 10^6/uL (4.00-5.40); WHITE BLOOD COUNT 13.4 10^3/uL (4.0-10.0)
[2020-07-26 07:06] LABS: ALBUMIN 1.8 GM/DL (3.2-5.2); ALT/SGPT 32 U/L (12-78); BILIRUBIN,TOTAL 0.6 MG/DL (0.2-1.0); BLOOD UREA NITROGEN 8 MG/DL (7-18); CARBON DIOXIDE LEVEL 27 MEQ/L (21-32); CHLORIDE LEVEL 105 MEQ/L (98-107); CHOLESTEROL LEVEL 146 MG/DL (< 200); CPK CREATINE PHOSPHOKINASE 30 U/L (26-192); CREATININE FOR GFR 0.27 MG/DL (0.55-1.30); GLOMERULAR FILTRATION RATE > 60.0 (>51); GLUCOSE, FASTING 110 MG/DL (70-100); LDH LACTATE DEHYDROGENASE 347 U/L (84-246); PHOSPHORUS LEVEL 2.9 MG/DL (2.5-4.9); POTASSIUM SERUM 3.8 MEQ/L (3.5-5.1); SODIUM LEVEL 140 MEQ/L (136-145); TOTAL PROTEIN 4.4 GM/DL (6.4-8.2); TRIGLYCERIDES LEVEL 124 MG/DL (<150)
[2020-07-26 07:46] VITALS: BP 135/72
[2020-07-26] MEDS: POTASSIUM CHLORIDE 10 MEQ SR TABLET PO SCH (07:55)
[2020-07-26] MEDS: MORPHINE 2 MG/ML 1ML VIAL (J2270) IV PRN (07:57)
[2020-07-26] MEDS: SODIUM CHLORIDE 0.9% INJ 10 ML SYR IV PRN (07:57)
[2020-07-26] MEDS: NYSTATIN 500,000 U/5 ML SUSP UDC SS SCH ×3 (07:58→20:28)
[2020-07-26] MEDS: LACTULOSE 20 GM/30 ML SYRUP UD PO SCH (07:58)
[2020-07-26] MEDS: predniSONE 10 MG TAB PO SCH (07:59)
[2020-07-26] MEDS: ALVIMOPAN 12 MG CAPSULE (ENTEREG) PO SCH ×2 (07:59→20:28)
[2020-07-26] MEDS: PANTOPRAZOLE 40MG VIAL (C9113 PER 1) IV SCH (07:59)
[2020-07-26] MEDS: MIRALAX *UNIT DOSE* 17GM PACKET PO SCH (11:17)
--- NOTE | 2020-07-26 11:17 | IPNPDOC ---
Text Note Date of Service The patient was seen on 07/26/20. NOTE SUBJECTIVE: -No acute complaints. -Conversational, pleasant PHYSICAL EXAMINATION: VITAL SIGNS: see below GENERAL APPEARANCE: Ill appearing, NAD HEENT: NCAT, EOMI, PERRLA CARDIOVASCULAR: tachycardic, normal rhythm, no murmurs noted LUNGS: moving air well, trace bibasilar crackles now, improved ABDOMEN: Has midline abdominal incision with dressing in place, tender to deep palpation, hypoactive sounds, [address] EXTREMITIES: 1+ LE edema, WWP NEUROLOGICAL: CN3-12 intact, moving all extremities PSYCHIATRIC: AOx3 LABORATORY DATA: WBC 13.4 Hgb 9.4 platelets 292 Na 140 K 3.8 Cr 0.27 MICROBIOLOGY: Please see below. ASSESSMENT: 50 yo W who was admitted to [facility] as transfer for Patrick Cuellar with acute hypoxemic respiratory failure and found to have ischemic bowel 2/2 severe obstipation c/b severe sepsis s/p ex-lap x 2 with sigmoid to mid rectal colectomy with colostomy placement c/b hemorrhagic shock 2/2 rectal stump bleeding thus the second ex-lap now hemodynamically stable, extubated with noted now stable H/H. Acute hypoxemic respiratory failure secondary to abdominal sepsis and bowel ischemia: resolved -Extubated 07/21 -On pred taper, and pred for GI ppx -Incentive spirometry -Abdominal ischemia management per below Bowel ischemia: 2/2 severe obstipation likely i/s/o narcotic pain medications post ortho surgery -continue empiric Cipro/flagyl day #9.( Received 4 days of Meropenem prior). -Post op day #12 and #7 from bowel resections. On 07/15 had resection of the sigmoid to mid rectum. Her postop course was c/b by bleeding and received a to hiwot of 10u of pRBCs and 2 FFP and had to return to the OR for another emergent ex-lap on 07/19 during with she had repair of a necrotic rectal stump, abdominal washout and evacuation of a large hematoma. -was on TPN that was discontinued 07/21 and started on full liquid diet, and now on soft diet. -daily CBC -senna BID and daily miralax Acute blood loss anemia: - will continue to monitor likely from abdomen -Per my discussion with Dr. Gurrola, she suspects that she is likely vitamin K deficient and easily bleeds but is also hypercoagulable at the time. Will hold pharmacologic DVT ppx. -daily CBC -Goal Hgb >8 Hypertension -continue metoprolol and amlodipine Severe protein malnourishment. -soft diet Anasarca: likely multifactorial 2/2 massive fluid and blood products resuscitation, as well as hypoalbuminemia with third spacing, much improved. -s/p some albumin -s/p lasix 40 IV daily, with goal at least net negative 2L/24h. start daily lasix 40 PO -TTE was wnl, without CHF DVT prophylaxis: TEDs and SCDs GI prophylaxis: Protonix. Resolved issues: Sepsis Shock VS,Fishbone, I+O VS, Fishbone, I+O Laboratory Tests 07/26/20 06:19 Vital Signs Date Time Temp Pulse Resp B/P (MAP) Pulse Ox O2 Delivery O2 Flow Rate FiO2 07/26/20 08:07 15 07/26/20 07:58 90 135/72 07/26/20 07:46 98.1 96 Room Air 07/24/20 12:00 2.0 07/21/20 11:00 40 I&O- Last 24 Hours up to 6 AM 07/26/20 06:00 Intake Total 976 ml Output Total 2800 ml Balance -1824 ml LEXII MONTENEGRO MD July 26, 2020 08:59
[2020-07-26] MEDS: FUROSEMIDE 40 MG TAB PO SCH (11:18)
[2020-07-26] MEDS: SENNA 8.6 MG TAB (SENOKOT) PO SCH ×2 (11:18→20:28)
[2020-07-26 11:29] VITALS: BP 134/63
--- NOTE | 2020-07-26 12:56 | IPN ---
PROGRESS NOTE DATE: 07/26/2020 SUBJECTIVE: Patient seems to be making some good progress. Feels a little bit better today. Has been eating a little bit better, she states, although when we look at her temperature curve, she did have a little bit of a temperature spike yesterday morning early, but since that time has been afebrile. She does have a little bit of a bump in her white count to 13.4 today; however, her hematocrit is up as well and platelet count suggesting that this may be an issue of hemoconcentration to some extent, but if this continues to increase, I recommend we repeat a CAT scan to rule out any abscess tomorrow. In any case, she clinically is looking slowly but progressively better each day. PHYSICAL EXAMINATION: ABDOMEN: Soft, nontender. Ostomy is functioning fine. Drainage tubes are in place and dressings intact. IMPRESSION/PLAN: I would recommend continuing current treatment and, if her white count bumps up again tomorrow, then I would recommend a CT of abdomen and pelvis. Specifically, the concern is the rectal stump and, if there is no significant abscess cavity/drainable collection, then possibly reevaluating the rectal stump with an anoscopy or rectal irrigation may be warranted.
--- NOTE | 2020-07-26 13:02 | IPN ---
PROGRESS NOTE DATE: 07/25/2020 SUBJECTIVE: Patient is slowly making some improvement. She states that she wants to go home, but she really is still not close to getting that designation at this time. In any case, her white count has dropped a little bit to 12.0 from 12.1 yesterday. She has been tolerating a diet, although minimally eating. She has a Simon-Sykes drain that is putting out bloody drainage and a midline incision that has drainage over the top of it itself that has some minimal amounts, but otherwise, I am not seeing any significant necrotic or infected presentation of her abdominal wall or stool coming out, et cetera. She states that she is feeling better each day. PHYSICAL EXAMINATION: Her ostomy is functioning well. Her midline incision is covered by a dressing. There is some minimal drainage from the site, but no cellulitis. IMPRESSION/PLAN: Patient seems to be making some slow but progressive improvements. I would recommend that we continue with this course, continue with supportive care, encourage activity and at some point, once we are able to establish that the rectum has started to clear up, resolve its necrosis, then she may be an individual that may benefit from acute rehabilitation for some short period of time, specifically with the ostomy and ostomy care adding to her additional medical issues.
[2020-07-26] MEDS: MORPHINE 4 MG/ML 1ML VIAL/SYRINGE (J2270) IV PRN ×2 (14:04→18:55)
[2020-07-26 15:42] VITALS: BP 122/66
[2020-07-26 20:00] VITALS: BP 135/67
[2020-07-27] VITALS: BP 120/63
[2020-07-27] MEDS: IPRATROPIUM 0.5MG/ALBUTEROL 2.5MG INH SOL UD 3ML (DUONEB) NEB SCH ×4 (00:38→12:00)
[2020-07-27] MEDS: CIPROFLOXACIN 400 MG in IV 1 EA IV SCH ×2 (01:01→13:59)
[2020-07-27] MEDS: PERCOCET 5MG/325MG TAB PO PRN ×4 (01:02→22:10)
[2020-07-27 04:00] VITALS: BP 122/62
[2020-07-27] MEDS: MORPHINE 4 MG/ML 1ML VIAL/SYRINGE (J2270) IV PRN ×4 (04:47→20:05)
[2020-07-27] MEDS: METOPROLOL TART 12.5 MG PER 1/2 TAB PO SCH ×4 (04:47→18:32)
[2020-07-27] MEDS: metroNIDAZOLE 500 MG in IV 1 EA IV SCH ×3 (04:47→20:05)
[2020-07-27] MEDS: SODIUM CHLORIDE 0.9% INJ 10 ML SYR IV SCH ×2 (04:48→18:32)
[2020-07-27 05:10] LABS: BASO # 0.1 10^3/uL (0.0-0.2); BASO % 0.7 % (0.0-1.0); EOS # 0.1 10^3/uL (0.0-0.5); EOS % 0.6 % (0.0-3.0); HEMATOCRIT 29.5 % (36.0-47.0); HEMOGLOBIN 9.3 g/dl (12.0-15.5); LYMPH % 7.6 % (24.0-44.0); MEAN CORPUSCULAR HEMOGLOBIN 28.9 pg (27.0-33.0); MEAN CORPUSCULAR HGB CONC 31.5 g/dl (32.0-36.5); MEAN CORPUSCULAR VOLUME 91.6 fl (80.0-96.0); MONO # 0.9 10^3/uL (0.0-0.8); NEUTROPHILS # 9.6 10^3/uL (1.5-8.5); NEUTROPHILS % 73.2 % (36.0-66.0); PLATELET COUNT, AUTOMATED 277 10^3/uL (150-450); RED BLOOD COUNT 3.22 10^6/uL (4.00-5.40); WHITE BLOOD COUNT 13.1 10^3/uL (4.0-10.0)
[2020-07-27 05:57] LABS: ALBUMIN 1.8 GM/DL (3.2-5.2); ALT/SGPT 29 U/L (12-78); BILIRUBIN,TOTAL 0.4 MG/DL (0.2-1.0); BLOOD UREA NITROGEN 7 MG/DL (7-18); CALCIUM LEVEL 7.7 MG/DL (8.5-10.1); CARBON DIOXIDE LEVEL 27 MEQ/L (21-32); CHLORIDE LEVEL 103 MEQ/L (98-107); CHOLESTEROL LEVEL 149 MG/DL (< 200); CPK CREATINE PHOSPHOKINASE 27 U/L (26-192); CREATININE FOR GFR 0.27 MG/DL (0.55-1.30); GLOMERULAR FILTRATION RATE > 60.0 (>51); GLUCOSE, FASTING 112 MG/DL (70-100); LDH LACTATE DEHYDROGENASE 454 U/L (84-246); PHOSPHORUS LEVEL 3.6 MG/DL (2.5-4.9); POTASSIUM SERUM 3.6 MEQ/L (3.5-5.1); SODIUM LEVEL 137 MEQ/L (136-145); TOTAL PROTEIN 4.5 GM/DL (6.4-8.2); TRIGLYCERIDES LEVEL 141 MG/DL (<150)
[2020-07-27 08:00] VITALS: BP 129/68
[2020-07-27] MEDS: PANTOPRAZOLE 40MG VIAL (C9113 PER 1) IV SCH (09:44)
[2020-07-27] MEDS: NYSTATIN 500,000 U/5 ML SUSP UDC SS SCH ×3 (09:44→20:04)
[2020-07-27] MEDS: FUROSEMIDE 40 MG TAB PO SCH (09:45)
[2020-07-27] MEDS: predniSONE 10 MG TAB PO SCH (09:45)
[2020-07-27] MEDS: SENNA 8.6 MG TAB (SENOKOT) PO SCH ×2 (09:45→20:04)
[2020-07-27] MEDS: ALVIMOPAN 12 MG CAPSULE (ENTEREG) PO SCH ×2 (09:45→20:04)
[2020-07-27] MEDS: MIRALAX *UNIT DOSE* 17GM PACKET PO SCH (09:46)
[2020-07-27] MEDS: GASTROGRAFIN SOLUTION 30ML PO SCH ×2 (09:56→10:32)
[2020-07-27] MEDS ORDERED: ISOVUE-370 76% 100ML VIAL As Ordered ONE (11:24)
[2020-07-27 12:00] VITALS: BP 115/57
--- NOTE | 2020-07-27 13:30 | REP ---
INDICATION: postop colectomy, persistent leukocytosis, look for abscess COMPARISON: CT chest 07/14/2020. TECHNIQUE: CT Scan of the abdomen and pelvis was performed with intravenous administration of 100 cc of Isovue 370, and oral contrast. FINDINGS: Lung bases: There is mild patchy bibasilar atelectasis/infiltrate. Liver: Normal Gallbladder: There has been a prior cholecystectomy. Spleen: Normal. Adrenals: Normal. Pancreas: Normal. Kidneys: Normal. Small and large bowel: There has been relatively recent sigmoidectomy with formation of a rectal stump and left colostomy. Reviewing the most recent operative notes from 07/20/2020, at that time there was necrosis of the rectal stump. An omental patch was placed at that time. Multiple skin jaxson are visualized on the surface of the anterior abdominal wall. A drain is seen entering the left pelvis. The distal tip is in the right pelvis. The rectal stump is significantly distended with fluid. There are also multiple foci of air within. The superior margin of the stump is ill-defined, compatible with necrosis and dehiscence. Mild fluid and foci of air are visualized along the margins of what is felt to represent the omental patch. There is no free intraperitoneal air. There is moderate fecal material seen throughout the colon, with moderate distention of the right and transverse colon. Oral contrast is seen passing into the distal left colon into the ostomy. There is mild diffuse dilatation of small bowel. Free fluid: There is mild diffuse fluid in the left paracolic gutter. There is mild ill-defined fluid surrounding the colostomy in the left abdominal wall soft tissues. Abdominal aorta: No aneurysm or dissection. Adenopathy: None. Appendix: Not inflamed. Osseous structures: There is metallic internal fixation in the proximal right femur.. Pelvis: No mass. Prior hysterectomy. Lopes catheter is seen in a collapsed urinary bladder which contains small amount of air and fluid. IMPRESSION: Mild patchy bibasilar atelectasis/infiltrate. Rectal stump is significantly distended with fluid and there are multiple foci of air also seen within. The superior margin of the stump is ill-defined compatible with necrosis and dehiscence. There is mild scattered fluid just superior to the rectal stump which appears to be located along the margin of the omental patch, along with multiple foci of air. This fluid, as well as the fluid within the rectal stump, may be infected. There is also mild free fluid throughout the left paracolic gutter, and there is mild fluid in the left abdominal wall surrounding the exiting colostomy. <Electronically signed by Dominik Bowen > 07/27/20 [id number]
--- NOTE | 2020-07-27 14:53 | IPNPDOC ---
Text Note Date of Service The patient was seen on 07/27/20. NOTE SUBJECTIVE: Patient was seen and examined this morning at [facility]. She is quite frustrated this morning. She reports little output from her ostomy. She states she continues to have abdominal pain which is worse when she eats or drinks. No new concerns. OBJECTIVE: Vital Signs: See below GENERAL: Alert, comfortable, in no acute distress HEENT: Normocephalic, atraumatic, sclera anicteric, moist mucous membranes NECK: Supple, trachea midline, no lymphadenopathy CARDIOVASCULAR: Tachycardic. Regular rhythm, normal S1 and S2. No murmurs, rubs, or gallops RESPIRATORY: Clear to auscultation bilaterally with equal air entry bilaterally. No wheezing, rhonchi, or rales. ABDOMEN: Soft. Tender to deep palpation throughout. Hypoactive bowel sounds. Midline abdominal incision with dressing in place. [address] with little serosanguineous output. Colostomy present with gas in bag. EXTREMITIES: No edema. Pulses 2+/4 in bilateral upper and lower extremities NEUROLOGIC: Alert and oriented x3 to person, place and time. No focal deficits appreciated PSYCHIATRIC: Mood and affect appropriate ASSESSMENT/PLAN: 50 yo W who was admitted to [facility] as transfer for Patrick Cuellar with acute hypoxemic respiratory failure and found to have ischemic bowel 2/2 severe obstipation, presented with severe sepsis, now s/p ex-lap x 2 with sigmoid to mid rectal colectomy with colostomy placement, s/p hemorrhagic shock 2/2 rectal stump bleeding thus the second ex-lap now hemodynamically stable, extubated with noted now stable H/H. # Bowel ischemia: 2/2 severe obstipation likely i/s/o narcotic pain medications post ortho surgery -Post op day #13 and #8 from bowel resections. On 07/15 had resection of the sigmoid to mid rectum. Her postop course was c/b by bleeding and received a total of 10u of pRBCs and 2 FFP and had to return to the OR for another emergent ex-lap on 07/19 during with she had repair of a necrotic rectal stump, abdominal washout and evacuation of a large hematoma. - continue empiric Cipro/flagyl day #10 ( Received 4 days of Meropenem prior). - s/p TPN discontinued 07/21, advanced to soft diet. - senna BID and daily miralax scheduled bowel regimen. - Pain control with Percocet q4h prn, IV morphine 2mg q4h prn, tylenol 650mg q6h prn. - trend CBC daily. WBC count persistently elevated, Dr. Roberts ordered CT abdomen/pelvis to evaluate for abscess today - General surgery consulted. # Acute hypoxemic respiratory failure secondary to abdominal sepsis and bowel ischemia, resolved - Extubated 07/21 - Continue on prednisone taper. Protonix for GI prophylaxis - Incentive spirometry # Acute blood loss anemia, resolved - likely from rectal stump bleeding, s/p second ex lap - H/H has been stable. trend daily. - transfuse for Hg less than 8.0 # Hypertension -continue metoprolol and amlodipine # Severe protein-calorie malnutrition - s/p TPN while npo. s/p IV albumin. - soft diet # Anasarca, likely multifactorial 2/2 massive fluid and blood products resuscitation, as well as hypoalbuminemia with third spacing, much improved. -s/p IV albumin -s/p IV lasix, continue lasix 40mg daily PO -TTE negative for heart failure DVT prophylaxis: teds and SCDs - Per discussion with Dr. Gurrola, she suspects that she is likely vitamin K deficient and easily bleeds but is also hypercoagulable at the time. Will hold pharmacologic DVT ppx. DISPOSITION: admitted inpatient to PCU pending clinicall improvement. General surgery consulted. GME ATTESTATION My faculty preceptor for this patient encounter was physically present during the encounter and was fully available. All aspects of the patient interview, examination, medical decision making process, and medical care plan development were reviewed and approved by the faculty preceptor. The faculty preceptor is aware and concurs with the plan as stated in the body of this note and will attest to such by his/her cosignature. ATTENDING NOTE 50 yo W who recently fractured her femur on the right side in 06/2020 and was a dmitted at [facility] where she had surgery and was eventually discharged home with some narcotic pain medications, with no bowel regimen and she had severe constipation and fainted while trying to move her bowels and was brought to [facility] where she was found to be hypotensive and during her stay in the emergency room was in respiratory distress and subsequently intubated and transferred to [facility] for further evaluation and was found with severe obstipation with bowel ischemia and necrosis and underwent an exlap by Dr. Roberts on 07/15 with resection of the sigmoid to mid rectum for ischemic colon 2/2 to severe obstipation. Her postop course was c/b by bleeding and received a total of 10u of pRBCs and 2 FFP and had to return to the OR for another emergent ex-lap on 07/19 during with she had repair of a necrotic rectal stump, abdominal washout and evacuation of a large hematoma. She eventually improved and had diet advanced but course now c/b potentially infected stump per imaging just done. Dr. Roberts is onboard. VS,Fishbone, I+O VS, Fishbone, I+O Laboratory Tests 07/27/20 04:46 Vital Signs Date Time Temp Pulse Resp B/P (MAP) Pulse Ox O2 Delivery O2 Flow Rate FiO2 07/27/20 12:49 108 136/78 07/27/20 12:00 97.5 14 95 Room Air 07/27/20 04:47 2.0 40 I&O- Last 24 Hours up to 6 AM 07/27/20 06:00 Intake Total 480 ml Output Total 3445 ml Balance -2965 ml LAKESHA GOMEZ D.O. July 27, 2020 14:53 LEXII MONTENEGRO MD July 27, 2020 18:09
[2020-07-27 16:11] VITALS: BP 117/73
[2020-07-27] MEDS ORDERED: BISACODYL 10 MG SUPP PR ONE (19:30)
[2020-07-27] MEDS ORDERED: MAGNESIUM CITRATE 300 ML BTL PO ONE (19:30)
[2020-07-27 20:00] VITALS: BP 128/71
[2020-07-28] VITALS (7 sets, daily range): BP systolic 114–146; BP diastolic 60–79
[2020-07-28] MEDS: MORPHINE 4 MG/ML 1ML VIAL/SYRINGE (J2270) IV PRN ×4 (00:54→16:27)
[2020-07-28] MEDS: CIPROFLOXACIN 400 MG in IV 1 EA IV SCH (00:54)
[2020-07-28] MEDS: METOPROLOL TART 12.5 MG PER 1/2 TAB PO SCH ×4 (00:54→16:32)
[2020-07-28] MEDS: metroNIDAZOLE 500 MG in IV 1 EA IV SCH (04:53)
[2020-07-28] MEDS: PERCOCET 5MG/325MG TAB PO PRN ×4 (04:53→20:21)
[2020-07-28] MEDS: SODIUM CHLORIDE 0.9% INJ 10 ML SYR IV SCH ×2 (04:54→16:33)
[2020-07-28 05:18] LABS: BASO # 0.1 10^3/uL (0.0-0.2); BASO % 0.8 % (0.0-1.0); EOS # 0.1 10^3/uL (0.0-0.5); EOS % 0.4 % (0.0-3.0); HEMATOCRIT 31.9 % (36.0-47.0); HEMOGLOBIN 9.9 g/dl (12.0-15.5); LYMPH # 1.1 10^3/uL (1.5-5.0); LYMPH % 6.9 % (24.0-44.0); MEAN CORPUSCULAR HEMOGLOBIN 28.4 pg (27.0-33.0); MEAN CORPUSCULAR VOLUME 91.7 fl (80.0-96.0); MONO # 1.1 10^3/uL (0.0-0.8); MONO % 6.6 % (2.0-8.0); NEUTROPHILS # 12.4 10^3/uL (1.5-8.5); NEUTROPHILS % 77.5 % (36.0-66.0); PLATELET COUNT, AUTOMATED 236 10^3/uL (150-450); RED BLOOD COUNT 3.48 10^6/uL (4.00-5.40)
[2020-07-28 05:46] LABS: ALBUMIN 2.1 GM/DL (3.2-5.2); ALT/SGPT 27 U/L (12-78); BILIRUBIN,TOTAL 0.5 MG/DL (0.2-1.0); BLOOD UREA NITROGEN 7 MG/DL (7-18); CALCIUM LEVEL 7.2 MG/DL (8.5-10.1); CARBON DIOXIDE LEVEL 26 MEQ/L (21-32); CHLORIDE LEVEL 100 MEQ/L (98-107); CHOLESTEROL LEVEL 153 MG/DL (< 200); CPK CREATINE PHOSPHOKINASE 16 U/L (26-192); CREATININE FOR GFR 0.32 MG/DL (0.55-1.30); GLOMERULAR FILTRATION RATE > 60.0 (>51); GLUCOSE, FASTING 103 MG/DL (70-100); LDH LACTATE DEHYDROGENASE 375 U/L (84-246); PHOSPHORUS LEVEL 3.4 MG/DL (2.5-4.9); POTASSIUM SERUM 3.2 MEQ/L (3.5-5.1); SODIUM LEVEL 135 MEQ/L (136-145); TOTAL PROTEIN 4.9 GM/DL (6.4-8.2); TRIGLYCERIDES LEVEL 156 MG/DL (<150)
--- NOTE | 2020-07-28 07:32 | IPNPDOC ---
Text Note Date of Service The patient was seen on 07/28/20. NOTE Patient complains of crampy abdominal pain, She is passing flatus but only a small amount of stool passes out the colostomy. She has been afebrile, tolerating soft foods. On exam looks comfortable abdomen: prevena was removed, midline incision intact, no drainage, no erythema, right lower quadrant incision intact. moderate echhymosis and subcutaneous thickening, no erythema, no drainage. Colostomy, pink viable - small amount of liquid brown stool in bag. Nontender. Impression and Plan I reviewed the results of the CT abdomen and pelvis with her. Colon contains a lot of solid stool. Would try giving her magnesium citrate and dulcolax through the ostomy and see if she passes this. I feel that the crampy abdominal pain is secondary to her not able to pass this stool. Rectal stump is enlarged and fluid filled, few bubbles of air but over all holding up to the second repair. Probably is still ischemic. Nothing to do for now. At some point in the future would like to look at this with colonoscope. Otherwise if it fails, may need to transfer her out to a colorectal surgeon to consider completion APR (abdominoperineal resection) vs putting a transgluteal drain. VS,Fishbone, I+O VS, [place], I+O Laboratory Tests 07/28/20 05:02 Vital Signs Date Time Temp Pulse Resp B/P (MAP) Pulse Ox O2 Delivery O2 Flow Rate FiO2 07/28/20 05:23 18 07/28/20 04:53 91 125/64 07/28/20 04:00 98.8 92 Room Air 07/28/20 00:54 2.0 40 I&O- Last 24 Hours up to 6 AM 07/28/20 06:00 Intake Total 2150 ml Output Total 2125 ml Balance 25 ml TAN BAUGH MD July 28, 2020 07:32
[2020-07-28] MEDS ORDERED: POTASSIUM CHLORIDE 10 MEQ SR TABLET PO SCH (07:45)
[2020-07-28] MEDS: predniSONE 10 MG TAB PO SCH (08:28)
[2020-07-28] MEDS: MIRALAX *UNIT DOSE* 17GM PACKET PO SCH (08:28)
[2020-07-28] MEDS: FUROSEMIDE 40 MG TAB PO SCH (08:29)
[2020-07-28] MEDS: NYSTATIN 500,000 U/5 ML SUSP UDC SS SCH ×3 (08:29→20:21)
[2020-07-28] MEDS: ALVIMOPAN 12 MG CAPSULE (ENTEREG) PO SCH ×2 (08:29→20:21)
[2020-07-28] MEDS: SENNA 8.6 MG TAB (SENOKOT) PO SCH ×2 (08:29→20:21)
[2020-07-28] MEDS: MEROPENEM INJ 1 GM in IV 1 EA IV SCH ×2 (08:31→16:31)
[2020-07-28] MEDS: PANTOPRAZOLE 40MG VIAL (C9113 PER 1) IV SCH (08:31)
[2020-07-28] MEDS ORDERED: LACTULOSE 20 GM/30 ML SYRUP UD PO ONE (10:45)
[2020-07-28] MEDS: ACETAMINOPHEN TAB 650MG DOSE (2X325MG) PO PRN (11:26)
[2020-07-28] MEDS: KCL 10MEQ/100ML SWI (KRUN) 10 MEQ in IV 1 EA IV SCH ×2 (11:27→12:24)
--- NOTE | 2020-07-28 11:31 | IPNPDOC ---
Text Note Date of Service The patient was seen on 07/28/20. NOTE SUBJECTIVE: Patient was seen and examined this morning at [facility]. She states she feels about the same today. She continues to have cramping abdominal pain which worsens when she eats. Continues to have little colostomy output. OBJECTIVE: Vital Signs: See below GENERAL: Alert, comfortable, in no acute distress HEENT: Normocephalic, atraumatic, sclera anicteric, moist mucous membranes NECK: Supple, trachea midline, no lymphadenopathy CARDIOVASCULAR: Tachycardic. Regular rhythm, normal S1 and S2. No murmurs, rubs, or gallops RESPIRATORY: Clear to auscultation bilaterally with equal air entry bilaterally. No wheezing, rhonchi, or rales. ABDOMEN: Soft. Tender to deep palpation throughout. Hypoactive bowel sounds. Midline abdominal incision with dressing in place. [address] with little serosanguineous output. Colostomy present with gas in bag. EXTREMITIES: No edema. Pulses 2+/4 in bilateral upper and lower extremities NEUROLOGIC: Alert and oriented x3 to person, place and time. No focal deficits appreciated PSYCHIATRIC: Mood and affect appropriate ASSESSMENT/PLAN: 50 yo W who was admitted to [facility] as transfer for Patrick Cuellar with acute hypoxemic respiratory failure and found to have ischemic bowel 2/2 severe obstipation, presented with severe sepsis, now s/p ex-lap x 2 with sigmoid to mid rectal colectomy with colostomy placement, s/p hemorrhagic shock 2/2 rectal stump bleeding thus the second ex-lap now hemodynamically stable, extubated with noted now stable H/H. # Bowel ischemia: 2/2 severe obstipation likely i/s/o narcotic pain medications post ortho surgery -Post op day #14 and #9 from bowel resections. On 07/15 had resection of the sigmoid to mid rectum. Her postop course was c/b by bleeding and received a total of 10u of pRBCs and 2 FFP and had to return to the OR for another emergent ex-lap on 07/19 during with she had repair of a necrotic rectal stump, abdominal washout and evacuation of a large hematoma. - continue IV abx meropenem day #11 (initially on meropenem x4 days then switched to cipro/flagyl x6 days, back to meropenem today) - s/p TPN discontinued 5, advanced to soft diet. - senna BID and daily miralax scheduled bowel regimen. Given 1x lactulose and bisacodyl suppository to colostomy today - Pain control with Percocet q4h prn, IV morphine 2mg q4h prn, tylenol 650mg q6h prn. - trend CBC daily. WBC has continued to be persistently elevated - General surgery consulted. # Acute hypoxemic respiratory failure secondary to abdominal sepsis and bowel ischemia, resolved - Extubated 07/21 - Continue on prednisone taper until 07/30. Protonix for GI prophylaxis - Incentive spirometry # Acute blood loss anemia, resolved - likely from rectal stump bleeding, s/p second ex lap - H/H has been stable. trend daily. - transfuse for Hg less than 8.0 # Hypertension -continue metoprolol and amlodipine # Severe protein-calorie malnutrition - s/p TPN while npo. s/p IV albumin. - soft diet # Anasarca, likely multifactorial 2/2 massive fluid and blood products resuscitation, as well as hypoalbuminemia with third spacing, much improved. -s/p IV albumin -s/p IV lasix, continue lasix 40mg daily PO -TTE negative for heart failure DVT prophylaxis: teds and SCDs - Per discussion with Dr. Gurrola, she suspects that she is likely vitamin K deficient and easily bleeds but is also hypercoagulable at the time. Will hold pharmacologic DVT ppx. DISPOSITION: admitted inpatient to PCU pending clinicall improvement. General surgery consulted. VS,Fishbone, I+O VS, Fishbone, I+O Laboratory Tests 07/28/20 05:02 Vital Signs Date Time Temp Pulse Resp B/P (MAP) Pulse Ox O2 Delivery O2 Flow Rate FiO2 07/28/20 10:13 16 Room Air 07/28/20 08:28 91 114/70 07/28/20 08:00 98.5 93 07/28/20 00:54 2.0 40 I&O- Last 24 Hours up to 6 AM 07/28/20 06:00 Intake Total 2150 ml Output Total 2125 ml Balance 25 ml GME ATTESTATION GME ATTESTATION My faculty preceptor for this patient encounter was physically present during the encounter and was fully available. All aspects of the patient interview, examination, medical decision making process, and medical care plan development were reviewed and approved by the faculty preceptor. The faculty preceptor is aware and concurs with the plan as stated in the body of this note and will attest to such by his/her cosignature. ATTENDING NOTE I, Fredi Ho, have independently examined this patient and performed my own physical exam, as well as reviewed the documentation and edited where necessary. I have discussed in detail with the resident / student the findings and plan of treatment as documented by the resident / student and edited their note. I agree with their findings and treatment plan and have edited their documentation. I will continue to follow the patient during this hospital stay. LAKESHA GOMEZ D.O. July 28, 2020 11:31 FREDI HO MD July 28, 2020 14:27
[2020-07-29] MEDS: MEROPENEM INJ 1 GM in IV 1 EA IV SCH ×3 (01:00→15:14)
[2020-07-29] MEDS: METOPROLOL TART 12.5 MG PER 1/2 TAB PO SCH ×4 (01:00→16:06)
[2020-07-29] MEDS: MORPHINE 4 MG/ML 1ML VIAL/SYRINGE (J2270) IV PRN ×5 (01:00→22:17)
[2020-07-29 04:00] VITALS: BP 135/71
[2020-07-29] MEDS: PERCOCET 5MG/325MG TAB PO PRN ×2 (05:10→09:12)
[2020-07-29 05:40] LABS: HEMATOCRIT 30.6 % (36.0-47.0); HEMOGLOBIN 9.7 g/dl (12.0-15.5); MEAN CORPUSCULAR HEMOGLOBIN 28.7 pg (27.0-33.0); MEAN CORPUSCULAR HGB CONC 31.7 g/dl (32.0-36.5); MEAN CORPUSCULAR VOLUME 90.5 fl (80.0-96.0); PLATELET COUNT, AUTOMATED 211 10^3/uL (150-450); RED BLOOD COUNT 3.38 10^6/uL (4.00-5.40); WHITE BLOOD COUNT 11.9 10^3/uL (4.0-10.0)
[2020-07-29 05:58] LABS: ALT/SGPT 22 U/L (12-78); BILIRUBIN,TOTAL 0.5 MG/DL (0.2-1.0); BLOOD UREA NITROGEN 7 MG/DL (7-18); CALCIUM LEVEL 7.3 MG/DL (8.5-10.1); CARBON DIOXIDE LEVEL 25 MEQ/L (21-32); CHLORIDE LEVEL 103 MEQ/L (98-107); CREATININE FOR GFR 0.28 MG/DL (0.55-1.30); GLOMERULAR FILTRATION RATE > 60.0 (>51); GLUCOSE, FASTING 94 MG/DL (70-100); POTASSIUM SERUM 3.5 MEQ/L (3.5-5.1); SODIUM LEVEL 136 MEQ/L (136-145); TOTAL PROTEIN 4.7 GM/DL (6.4-8.2)
[2020-07-29] MEDS: SODIUM CHLORIDE 0.9% INJ 10 ML SYR IV SCH ×2 (06:50→16:06)
[2020-07-29 08:00] VITALS: BP 130/70
[2020-07-29] MEDS: MIRALAX *UNIT DOSE* 17GM PACKET PO SCH ×2 (08:49→17:48)
[2020-07-29] MEDS: NYSTATIN 500,000 U/5 ML SUSP UDC SS SCH ×3 (08:50→21:13)
[2020-07-29] MEDS: SENNA 8.6 MG TAB (SENOKOT) PO SCH ×2 (08:50→21:13)
[2020-07-29] MEDS: PANTOPRAZOLE 40MG VIAL (C9113 PER 1) IV SCH (08:50)
[2020-07-29] MEDS: FUROSEMIDE 40 MG TAB PO SCH (08:50)
[2020-07-29] MEDS: predniSONE 10 MG TAB PO SCH (08:50)
--- NOTE | 2020-07-29 09:59 | IPNPDOC ---
Text Note Date of Service The patient was seen on 07/29/20. NOTE SUBJECTIVE: Patient was seen and examined this morning at [facility]. She continues to complain of cramp abdominal pain. She states this no longer changes when she eats. She is tolerating soft diet, no nausea or vomiting. Continues to have little ostomy output. She states she did not sleep well. She did get up to the chair yesterday with PT. No fever overnight. OBJECTIVE: Vital Signs: See below GENERAL: Alert, comfortable, in no acute distress HEENT: Normocephalic, atraumatic, sclera anicteric, moist mucous membranes NECK: Supple, trachea midline, no lymphadenopathy CARDIOVASCULAR: Regular rate and rhythm, normal S1 and S2. No murmurs, rubs, or gallops RESPIRATORY: Clear to auscultation bilaterally with equal air entry bilaterally. No wheezing, rhonchi, or rales. ABDOMEN: Soft. Tender to deep palpation throughout. Bowel sounds are present. Midline abdominal incision with dressing in place, no active drainage from surgical sites. No surrounding erythema, swelling, or warmth. Colostomy present with gas and small amount of liquid stool in bag. EXTREMITIES: No edema. Pulses 2+/4 in bilateral upper and lower extremities NEUROLOGIC: Alert and oriented x3 to person, place and time. No focal deficits appreciated PSYCHIATRIC: Mood and affect appropriate ASSESSMENT/PLAN: 50 yo W who was admitted to [facility] as transfer for Patrick Cuellar with acute hypoxemic respiratory failure and found to have ischemic bowel 2/2 severe obstipation, presented with severe sepsis, now s/p ex-lap x 2 with sigmoid to mid rectal colectomy with colostomy placement, s/p hemorrhagic shock 2/2 rectal stump bleeding thus the second ex-lap now hemodynamically stable, extubated with noted now stable H/H. # Bowel ischemia: 2/2 severe obstipation likely i/s/o narcotic pain medications post ortho surgery -Post op day #15 and #10 from bowel resections. On 07/15 had resection of the sigmoid to mid rectum. Her postop course was c/b by bleeding and received a total of 10u of pRBCs and 2 FFP and had to return to the OR for another emergent ex-lap on 07/19 during with she had repair of a necrotic rectal stump, abdominal washout and evacuation of a large hematoma. - continue IV abx meropenem day #12 (initially on meropenem x4 days then switched to cipro/flagyl x6 days, back to meropenem) - s/p TPN discontinued 07/21, advanced to soft diet. - continue senna BID and daily miralax scheduled bowel regimen. Given 1x lactulose and bisacodyl suppository to colostomy yesterday with little effect. - Pain control with Percocet q4h prn, IV morphine 2mg q4h prn, tylenol 650mg q6h prn. - trend CBC daily. WBC has continued to be persistently elevated, trended down today. - General surgery consulted. # Acute hypoxemic respiratory failure secondary to abdominal sepsis and bowel ischemia, resolved - Extubated 07/21 - Continue on prednisone taper until 07/30. Protonix for GI prophylaxis - Incentive spirometry # Acute blood loss anemia, resolved - likely from rectal stump bleeding, s/p second ex lap - H/H has been stable. trend daily. - transfuse for Hg less than 8.0 # Hypertension -continue metoprolol and amlodipine # Severe protein-calorie malnutrition - s/p TPN while npo. s/p IV albumin. - soft diet # Anasarca, likely multifactorial 2/2 massive fluid and blood products resuscitation, as well as hypoalbuminemia with third spacing, much improved. -s/p IV albumin -s/p IV lasix, continue lasix 40mg daily PO -TTE negative for heart failure DVT prophylaxis: teds and SCDs - Will hold pharmacologic DVT ppx as she continues to be high risk for bleeding. DISPOSITION: admitted inpatient to med/surg pending clinical improvement. General surgery consulted. PT/OT consulted, patient may need rehab on discharge VS,Fishbone, I+O VS, Fishbone, I+O Laboratory Tests 07/29/20 05:12 Vital Signs Date Time Temp Pulse Resp B/P (MAP) Pulse Ox O2 Delivery O2 Flow Rate FiO2 07/29/20 09:42 18 Room Air 07/29/20 08:51 87 130/70 07/29/20 08:00 97.9 96 07/29/20 01:00 2.0 40 I&O- Last 24 Hours up to 6 AM 07/29/20 06:00 Intake Total 360 ml Output Total 1600 ml Balance -1240 ml GME ATTESTATION GME ATTESTATION My faculty preceptor for this patient encounter was physically present during the encounter and was fully available. All aspects of the patient interview, examination, medical decision making process, and medical care plan development were reviewed and approved by the faculty preceptor. The faculty preceptor is aware and concurs with the plan as stated in the body of this note and will attest to such by his/her cosignature. ATTENDING NOTE I, Fredi Frote, have independently examined this patient and performed my own physical exam, as well as reviewed the documentation and edited where necessary. I have discussed in detail with the resident / student the findings and plan of treatment as documented by the resident / student and edited their note. I agree with their findings and treatment plan and have edited their documentation. I will continue to follow the patient during this hospital stay. LAKESHA GOMEZ D.O. July 29, 2020 09:58 FREDI FORTE MD July 29, 2020 13:24
[2020-07-29] MEDS: SODIUM CHLORIDE 0.9% INJ 10 ML SYR IV PRN ×3 (10:01→17:49)
[2020-07-29] MEDS: ACETAMINOPHEN TAB 650MG DOSE (2X325MG) PO PRN (12:13)
[2020-07-29 12:59] VITALS: BP 118/68
[2020-07-29 15:59] VITALS: BP 107/65
[2020-07-29 20:00] VITALS: BP 115/71
[2020-07-30] VITALS (7 sets, daily range): BP systolic 107–156; BP diastolic 56–75
[2020-07-30] MEDS: MEROPENEM INJ 1 GM in IV 1 EA IV SCH ×4 (00:43→23:21)
[2020-07-30] MEDS: METOPROLOL TART 12.5 MG PER 1/2 TAB PO SCH ×5 (00:43→23:21)
[2020-07-30] MEDS: MORPHINE 4 MG/ML 1ML VIAL/SYRINGE (J2270) IV PRN ×2 (02:19→06:34)
[2020-07-30 04:26] LABS: HEMATOCRIT 31.6 % (36.0-47.0); HEMOGLOBIN 9.9 g/dl (12.0-15.5); MEAN CORPUSCULAR HEMOGLOBIN 28.5 pg (27.0-33.0); MEAN CORPUSCULAR HGB CONC 31.3 g/dl (32.0-36.5); MEAN CORPUSCULAR VOLUME 91.1 fl (80.0-96.0); PLATELET COUNT, AUTOMATED 216 10^3/uL (150-450); RED BLOOD COUNT 3.47 10^6/uL (4.00-5.40); WHITE BLOOD COUNT 11.3 10^3/uL (4.0-10.0)
[2020-07-30 05:03] LABS: ALT/SGPT 23 U/L (12-78); BILIRUBIN,TOTAL 0.4 MG/DL (0.2-1.0); BLOOD UREA NITROGEN 7 MG/DL (7-18); CALCIUM LEVEL 7.7 MG/DL (8.5-10.1); CARBON DIOXIDE LEVEL 28 MEQ/L (21-32); CHLORIDE LEVEL 104 MEQ/L (98-107); CREATININE FOR GFR 0.29 MG/DL (0.55-1.30); GLOMERULAR FILTRATION RATE > 60.0 (>51); GLUCOSE, FASTING 102 MG/DL (70-100); POTASSIUM SERUM 3.1 MEQ/L (3.5-5.1); SODIUM LEVEL 139 MEQ/L (136-145); TOTAL PROTEIN 4.8 GM/DL (6.4-8.2)
[2020-07-30] MEDS ORDERED: MAALOX 30 ML SUSP *UDC PO PRN (05:10)
[2020-07-30] MEDS: SODIUM CHLORIDE 0.9% INJ 10 ML SYR IV SCH ×2 (05:26→18:06)
[2020-07-30] MEDS ORDERED: POTASSIUM CHLORIDE 10 MEQ SR TABLET PO ONE (05:40)
[2020-07-30] MEDS ORDERED: KCL 20MEQ IN 100ML SWI (KRUN) 20 MEQ in IV 1 EA IV ONE ×2 (06:20)
[2020-07-30 06:36] LABS: MAGNESIUM LEVEL 1.7 MG/DL (1.8-2.4)
[2020-07-30] MEDS ORDERED: MAG SULF 1GM/100ML (MAG RUN) 1 GM in IV 1 EA IV ONE (08:00)
--- NOTE | 2020-07-30 08:11 | ECGEPIP ---
[facility] Test Date: 2020-07-30 Pat Name: EDWIN SHORT Department: Room: [place] [address] Gender: Female Director Business Systems: : 1970 Requested By: José Luis Blanchard Order Number: [id number] Reading MD: Al Webber Measurements Intervals [place] Rate: 95 P: 59 UT: 154 QRS: -25 QRSD: 68 T: 38 QT: 368 QTc: 462 Interpretive Statements Normal sinus rhythm Nonspecific ST-T wave abnormalities Rate decreased from tracing done 07-18-20 Electronically Signed on 07-30-2020 8:11:26 EDT by Al Webber
[2020-07-30] MEDS: PANTOPRAZOLE 40MG VIAL (C9113 PER 1) IV SCH (08:35)
[2020-07-30] MEDS: SODIUM CHLORIDE 0.9% INJ 10 ML SYR IV PRN ×2 (08:36→23:20)
[2020-07-30] MEDS: SENNA 8.6 MG TAB (SENOKOT) PO SCH ×2 (08:36→23:18)
[2020-07-30] MEDS: NYSTATIN 500,000 U/5 ML SUSP UDC SS SCH (08:36)
[2020-07-30] MEDS: FUROSEMIDE 40 MG TAB PO SCH (08:40)
[2020-07-30] MEDS: MIRALAX *UNIT DOSE* 17GM PACKET PO SCH ×2 (08:41→23:25)
[2020-07-30] MEDS: NORCO, ANEXSIA 5/325MG TABLET (HYDROcodone/ACETAMINOPHEN) PO PRN (10:15)
[2020-07-30 12:16] LABS: BASO # 0.1 10^3/uL (0.0-0.2); EOS # 0.1 10^3/uL (0.0-0.5); EOS % 0.4 % (0.0-3.0); HEMATOCRIT 34.4 % (36.0-47.0); HEMOGLOBIN 10.8 g/dl (12.0-15.5); LYMPH # 1.1 10^3/uL (1.5-5.0); LYMPH % 9.1 % (24.0-44.0); MEAN CORPUSCULAR HEMOGLOBIN 28.6 pg (27.0-33.0); MEAN CORPUSCULAR HGB CONC 31.4 g/dl (32.0-36.5); MONO # 0.8 10^3/uL (0.0-0.8); NEUTROPHILS # 9.4 10^3/uL (1.5-8.5); NEUTROPHILS % 79.5 % (36.0-66.0); PLATELET COUNT, AUTOMATED 224 10^3/uL (150-450); RED BLOOD COUNT 3.78 10^6/uL (4.00-5.40); WHITE BLOOD COUNT 11.8 10^3/uL (4.0-10.0)
[2020-07-30] MEDS: MORPHINE 2 MG/ML 1ML VIAL (J2270) IV PRN ×2 (14:34→23:19)
--- NOTE | 2020-07-30 15:48 | IPNPDOC ---
Text Note Date of Service The patient was seen on 07/30/20. NOTE SUBJECTIVE: Patient was seen and examined this morning at [facility]. She continues to have pain. She states only the morphine is helping. However, she has not taken the percocet since yesterday morning. She has had small amounts of bloody discharge from her anus. Continues to have poor output from the colostomy. OBJECTIVE: Vital Signs: See below GENERAL: Alert, comfortable, in no acute distress HEENT: Normocephalic, atraumatic, sclera anicteric, moist mucous membranes NECK: Supple, trachea midline, no lymphadenopathy CARDIOVASCULAR: Regular rate and rhythm, normal S1 and S2. No murmurs, rubs, or gallops RESPIRATORY: Clear to auscultation bilaterally with equal air entry bilaterally. No wheezing, rhonchi, or rales. ABDOMEN: Soft. Tender to deep palpation throughout. Bowel sounds are present. Midline abdominal incision with dressing in place, no active drainage from surgical sites. No surrounding erythema, swelling, or warmth. Colostomy present with gas and small amount of liquid stool in bag. EXTREMITIES: No edema. Pulses 2+/4 in bilateral upper and lower extremities NEUROLOGIC: Alert and oriented x3 to person, place and time. No focal deficits appreciated PSYCHIATRIC: Mood and affect appropriate ASSESSMENT/PLAN: 50 yo W who was admitted to [facility] as transfer for Patrick Cuellar with acute hypoxemic respiratory failure and found to have ischemic bowel 2/2 severe obstipation, presented with severe sepsis, now s/p ex-lap x 2 with sigmoid to mid rectal colectomy with colostomy placement, s/p hemorrhagic shock 2/2 rectal stump bleeding thus the second ex-lap now hemodynamically stable, extubated with noted now stable H/H. # Bowel ischemia: 2/2 severe obstipation likely i/s/o narcotic pain medications post ortho surgery -Post op day #16 and #11 from bowel resections. On 07/15 had resection of the sigmoid to mid rectum. Her postop course was c/b by bleeding and received a total of 10u of pRBCs and 2 FFP and had to return to the OR for another emergent ex-lap on 07/19 during with she had repair of a necrotic rectal stump, abdominal washout and evacuation of a large hematoma. - continue IV abx meropenem day #13 (initially on meropenem x4 days then switc hed to cipro/flagyl x6 days, back to meropenem) - s/p TPN discontinued 07/21, advanced to soft diet. - continue senna BID and daily miralax scheduled bowel regimen. Additional bowel regimen added today by general surgery. - Pain control with [place] q4h prn, IV morphine 2mg q8h prn, tylenol 650mg q6h p rn. - trend CBC daily. - General surgery consulted. # Acute hypoxemic respiratory failure secondary to abdominal sepsis and bowel ischemia, resolved - Extubated 07/21 - s/p prednisone. d/c GI prophylaxis - Incentive spirometry # Acute blood loss anemia, resolved - likely from rectal stump bleeding, s/p second ex lap - H/H has been stable - pt continues to have some bloody discharge from the rectum - transfuse for Hg less than 8.0 # Hypertension -continue metoprolol and amlodipine # Severe protein-calorie malnutrition - s/p TPN while npo. s/p IV albumin. - soft diet # Anasarca, likely multifactorial 2/2 massive fluid and blood products resuscitation, as well as hypoalbuminemia with third spacing, much improved. -s/p IV albumin -s/p IV lasix, continue lasix 40mg daily PO -TTE negative for heart failure DVT prophylaxis: teds and SCDs - Will hold pharmacologic DVT ppx as she continues to be high risk for bleeding. DISPOSITION: admitted inpatient to med/surg pending clinical improvement. General surgery consulted. PT/OT consulted, patient may need rehab on discharge, although her participation in PT/OT have been limited by her pain VS,Fishbone, I+O VS, Fishbone, I+O Laboratory Tests 07/30/20 04:20 07/30/20 11:46 Vital Signs Date Time Temp Pulse Resp B/P (MAP) Pulse Ox O2 Delivery O2 Flow Rate FiO2 07/30/20 14:44 14 07/30/20 11:50 105 128/75 07/30/20 11:46 98.5 96 Room Air 07/29/20 01:00 2.0 40 I&O- Last 24 Hours up to 6 AM 07/30/20 06:00 Intake Total 1540 ml Output Total 3095 ml Balance -1555 ml GME ATTESTATION GME ATTESTATION My faculty preceptor for this patient encounter was physically present during the encounter and was fully available. All aspects of the patient interview, examination, medical decision making process, and medical care plan development were reviewed and approved by the faculty preceptor. The faculty preceptor is aware and concurs with the plan as stated in the body of this note and will attest to such by his/her cosignature. ATTENDING NOTE I, Fredi Forte, have independently examined this patient and performed my own physical exam, as well as reviewed the documentation and edited where necessary. I have discussed in detail with the resident / student the findings and plan of treatment as documented by the resident / student and edited their note. I agree with their findings and treatment plan and have edited their documentation. I will continue to follow the patient during this hospital stay. LAKESHA GOMEZ D.O. July 30, 2020 15:48 FREDI FORTE MD July 30, 2020 16:04
--- NOTE | 2020-07-30 17:04 | IPNPDOC ---
Text Note Date of Service The patient was seen on 07/30/20. NOTE Patient continues to do well. She tells me that she ate have a sandwich today and was tolerating it. She still reports of pain when she eats and still is requiring IV morphine though we were able to decrease it to every 8 hours. I coax her to do without IV morphine. Her boyfriend was at the bedside and he tells me that she was actually reliance on about 6 packets of MiraLAX every day for years to help her move her bowels so she is actually taking much less here as she is on twice a day MiraLAX. Her belly appears benign and soft and nondistended though she is only passing gas and not much stool in her colostomy. We removed the Lopes catheter today and she reports she is able to urinate without any discomfort. She seems to be now passing more stuff out per rectum, she reports some bloody fluid, from it today. Yesterday she was reporting an urge to go which I think is a good sign that one the rectal stump is alive and 2 that this is now moving forward sent off for retained Fluid inside of the rectal stump as seen on her CT scan back last Monday. He still has long ways to go in terms of her activity tolerance still is a 2 person assist to get her out of bed. She is asking whether she can do the physical therapy at home and I will leave that up to the hospitalist service. On exam the abdomen looks benign. I removed all the port sites jaxson and half of the paramedian and midline incision jaxson. I removed the lower midline jaxson and probed the wound which is partially dehisced. I did not get any drainage at all of the wound itself appears well coaptated. Plan: I will increase the MiraLAX to 3 times a day as she has been reliant on this for years. 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 I will also add Metamucil to add some bulk to the stools. Yesterday I probed the colostomy to see if there is any outlet impaction of hard stools and there doesn't seem to be any stool at all below the fascia. I discussed the case with Dr. Ho. Steroids have been discontinued as of today and I favor discontinuing the antibiotics after this week and just watch out for any new infection. I still suspect that she may have some prior substance abuse as she seems to be very tolerant of necrotic. I could not explain the symptoms of pain she is reporting testis seems to be from or with oral intake. I do like the fact that she seems to be interested in eating any food now. I will advance her to a high- fiber diet and see if adding bulk in her gastrointestinal tract will help her and certainly this will help her nutrition status. VS,Fishbone, I+O VS, Fishbone, I+O Laboratory Tests 07/30/20 04:20 07/30/20 11:46 Vital Signs Date Time Temp Pulse Resp B/P (MAP) Pulse Ox O2 Delivery O2 Flow Rate FiO2 07/30/20 14:44 14 07/30/20 11:50 105 128/75 07/30/20 11:46 98.5 96 Room Air 07/29/20 01:00 2.0 40 I&O- Last 24 Hours up to 6 AM 07/30/20 06:00 Intake Total 1540 ml Output Total 3095 ml Balance -1555 ml TAN BAUGH MD July 30, 2020 17:04
[2020-07-30 17:57] LABS: BASO # 0.1 10^3/uL (0.0-0.2); BASO % 0.8 % (0.0-1.0); EOS # 0.1 10^3/uL (0.0-0.5); EOS % 0.5 % (0.0-3.0); HEMATOCRIT 33.3 % (36.0-47.0); HEMOGLOBIN 10.5 g/dl (12.0-15.5); LYMPH # 1.3 10^3/uL (1.5-5.0); LYMPH % 11.5 % (24.0-44.0); MEAN CORPUSCULAR HEMOGLOBIN 28.7 pg (27.0-33.0); MEAN CORPUSCULAR HGB CONC 31.5 g/dl (32.0-36.5); MONO # 0.9 10^3/uL (0.0-0.8); MONO % 8.3 % (2.0-8.0); NEUTROPHILS # 8.4 10^3/uL (1.5-8.5); NEUTROPHILS % 75.6 % (36.0-66.0); PLATELET COUNT, AUTOMATED 230 10^3/uL (150-450); RED BLOOD COUNT 3.66 10^6/uL (4.00-5.40)
[2020-07-30] MEDS: METAMUCIL (PSYLLIUM) PACKET PO SCH (23:17)
[2020-07-31 00:15] LABS: BASO # 0.1 10^3/uL (0.0-0.2); BASO % 0.8 % (0.0-1.0); EOS # 0.1 10^3/uL (0.0-0.5); EOS % 0.6 % (0.0-3.0); HEMATOCRIT 32.3 % (36.0-47.0); HEMOGLOBIN 10.2 g/dl (12.0-15.5); LYMPH # 1.3 10^3/uL (1.5-5.0); LYMPH % 12.9 % (24.0-44.0); MEAN CORPUSCULAR HEMOGLOBIN 28.8 pg (27.0-33.0); MEAN CORPUSCULAR HGB CONC 31.6 g/dl (32.0-36.5); MEAN CORPUSCULAR VOLUME 91.2 fl (80.0-96.0); MONO # 0.8 10^3/uL (0.0-0.8); MONO % 7.3 % (2.0-8.0); NEUTROPHILS # 7.7 10^3/uL (1.5-8.5); PLATELET COUNT, AUTOMATED 213 10^3/uL (150-450); RED BLOOD COUNT 3.54 10^6/uL (4.00-5.40); WHITE BLOOD COUNT 10.3 10^3/uL (4.0-10.0)
[2020-07-31] MEDS: SODIUM CHLORIDE 0.9% INJ 10 ML SYR IV PRN ×2 (00:36→05:40)
[2020-07-31] MEDS: NORCO, ANEXSIA 5/325MG TABLET (HYDROcodone/ACETAMINOPHEN) PO PRN ×5 (00:36→20:56)
[2020-07-31] MEDS: METOPROLOL TART 12.5 MG PER 1/2 TAB PO SCH ×3 (05:37→17:36)
[2020-07-31] MEDS: SODIUM CHLORIDE 0.9% INJ 10 ML SYR IV SCH ×2 (05:40→17:36)
[2020-07-31 06:00] VITALS: BP 121/72
[2020-07-31 06:13] LABS: BASO # 0.1 10^3/uL (0.0-0.2); EOS # 0.1 10^3/uL (0.0-0.5); EOS % 0.7 % (0.0-3.0); HEMATOCRIT 31.7 % (36.0-47.0); HEMOGLOBIN 9.9 g/dl (12.0-15.5); LYMPH # 1.3 10^3/uL (1.5-5.0); LYMPH % 15.1 % (24.0-44.0); MEAN CORPUSCULAR HEMOGLOBIN 28.3 pg (27.0-33.0); MEAN CORPUSCULAR HGB CONC 31.2 g/dl (32.0-36.5); MEAN CORPUSCULAR VOLUME 90.6 fl (80.0-96.0); MONO # 0.8 10^3/uL (0.0-0.8); MONO % 9.2 % (2.0-8.0); NEUTROPHILS # 5.9 10^3/uL (1.5-8.5); NEUTROPHILS % 70.3 % (36.0-66.0); PLATELET COUNT, AUTOMATED 222 10^3/uL (150-450); WHITE BLOOD COUNT 8.4 10^3/uL (4.0-10.0)
[2020-07-31 06:45] LABS: ALT/SGPT 29 U/L (12-78); BILIRUBIN,TOTAL 0.5 MG/DL (0.2-1.0); BLOOD UREA NITROGEN 7 MG/DL (7-18); CALCIUM LEVEL 7.9 MG/DL (8.5-10.1); CARBON DIOXIDE LEVEL 28 MEQ/L (21-32); CHLORIDE LEVEL 104 MEQ/L (98-107); CREATININE FOR GFR 0.27 MG/DL (0.55-1.30); GLOMERULAR FILTRATION RATE > 60.0 (>51); GLUCOSE, FASTING 98 MG/DL (70-100); POTASSIUM SERUM 3.2 MEQ/L (3.5-5.1); SODIUM LEVEL 139 MEQ/L (136-145); TOTAL PROTEIN 4.8 GM/DL (6.4-8.2)
[2020-07-31] MEDS: FUROSEMIDE 40 MG TAB PO SCH (09:00)
[2020-07-31] MEDS: SENNA 8.6 MG TAB (SENOKOT) PO SCH ×2 (09:00→20:56)
[2020-07-31] MEDS: KCL 10MEQ/100ML SWI (KRUN) 10 MEQ in IV 1 EA IV SCH ×2 (09:00→09:50)
[2020-07-31] MEDS: MIRALAX *UNIT DOSE* 17GM PACKET PO SCH ×2 (09:00→20:56)
[2020-07-31] MEDS: METAMUCIL (PSYLLIUM) PACKET PO SCH ×2 (09:00→20:56)
[2020-07-31] MEDS: MEROPENEM INJ 1 GM in IV 1 EA IV SCH ×2 (09:00→16:41)
[2020-07-31] MEDS ORDERED: MORPHINE 2 MG/ML 1ML VIAL (J2270) IV PRN (12:00)
[2020-07-31 14:00] VITALS: BP 104/60
--- NOTE | 2020-07-31 14:29 | IPNPDOC ---
Text Note Date of Service The patient was seen on 07/31/20. NOTE SUBJECTIVE: Patient was seen and examined this morning at beside. She states she is feeling the same today. She is glad her diet was changed so that she can eat different types of food. She has been tolerating diet. She continues to complain on abdominal pain which does not get worse when she eats. She has had some more output from her colostomy. Continues to have some bloody rectal discharge. OBJECTIVE: Vital Signs: See below GENERAL: Alert, comfortable, in no acute distress HEENT: Normocephalic, atraumatic, sclera anicteric, moist mucous membranes NECK: Supple, trachea midline, no lymphadenopathy CARDIOVASCULAR: Regular rate and rhythm, normal S1 and S2. No murmurs, rubs, or gallops RESPIRATORY: Clear to auscultation bilaterally with equal air entry bilaterally. No wheezing, rhonchi, or rales. ABDOMEN: Soft. Tender to deep palpation throughout. Bowel sounds are present. Midline abdominal incision with dressing in place, no active drainage from surgical sites. No surrounding erythema, swelling, or warmth. Colostomy present with some soft stool in bag. EXTREMITIES: No edema. Pulses 2+/4 in bilateral upper and lower extremities NEUROLOGIC: Alert and oriented x3 to person, place and time. No focal deficits appreciated PSYCHIATRIC: Mood and affect appropriate ASSESSMENT/PLAN: 50 yo W who was admitted to [facility] as transfer for Patrick Polo with acute hypoxemic respiratory failure and found to have ischemic bowel 2/2 severe obstipation, presented with severe sepsis, now s/p ex-lap x 2 with sigmoid to mid rectal colectomy with colostomy placement, s/p hemorrhagic shock 2/2 rectal stump bleeding thus the second ex-lap now hemodynamically stable, extubated with noted now stable H/H. Currently managed with IV antibiotics and receiving pain medication. PT/OT involved, although she is non-weight bearing on the right leg due to recent orthopedic surgery. # Bowel ischemia: 2/2 severe obstipation likely i/s/o narcotic pain medications post ortho surgery -Post op day #17 and #12 from bowel resections. On 07/15 had resection of the sigmoid to mid rectum. Her postop course was c/b by bleeding and received a total of 10u of pRBCs and 2 FFP and had to return to the OR for another emergent ex-lap on 07/19 during with she had repair of a necrotic rectal stump, abdominal washout and evacuation of a large hematoma. - continue IV abx meropenem day #14 (initially on meropenem x4 days then switche d to cipro/flagyl x6 days, back to meropenem) - continue senna BID, miralax BID, and metamucil BID scheduled bowel regimen. Ostomy output has improved with this. - Pain control with [place] q4h prn, IV morphine 2mg q12h prn, tylenol 650mg q6h prn. We will continue to wean down the IV morphine to prepare her for discharge. - trend CBC daily. - General surgery consulted. # Acute hypoxemic respiratory failure secondary to abdominal sepsis and bowel ischemia, resolved - Extubated 07/21. s/p prednisone. d/c GI prophylaxis - Incentive spirometry # Acute blood loss anemia, resolved - likely from rectal stump bleeding, s/p second ex lap - H/H has been stable - pt did not have any additional significant bloody discharge from the rectum - transfuse for Hg less than 8.0 # Hypertension -continue metoprolol and amlodipine # Severe protein-calorie malnutrition - s/p TPN while npo. s/p IV albumin. - high fiber diet with supplement # Right femur fracture s/p internal fixation - surgery at [facility] on 07/02/2020 - Non weight bearing on RLE for 3 months (until 10/01/2020) - will likely need rehab on discharge DVT prophylaxis: teds and SCDs - H/H has been stable. Will start her on chemical prophylaxis with SC lovenox today. She is high risk for DVT given recent orthopedic surgery and sedentary s tatus. DISPOSITION: admitted inpatient to med/surg pending clinical improvement. General surgery consulted. PT/OT consulted, patient may need rehab on discharge, although her participation in PT/OT have been limited by her pain VS,Nevin, I+O VS, Fishbone, I+O Laboratory Tests 07/30/20 17:41 07/30/20 23:37 07/31/20 05:50 Vital Signs Date Time Temp Pulse Resp B/P (MAP) Pulse Ox O2 Delivery O2 Flow Rate FiO2 07/31/20 11:49 16 07/31/20 11:49 120 108/75 07/31/20 07:02 Room Air 5/21/21 06:00 96.7 94 07/29/20 01:00 2.0 40 I&O- Last 24 Hours up to 6 AM 07/31/20 06:00 Intake Total 1270 ml Output Total 1200 ml Balance 70 ml GME ATTESTATION GME ATTESTATION My faculty preceptor for this patient encounter was physically present during the encounter and was fully available. All aspects of the patient interview, examination, medical decision making process, and medical care plan development were reviewed and approved by the faculty preceptor. The faculty preceptor is aware and concurs with the plan as stated in the body of this note and will attest to such by his/her cosignature. ATTENDING NOTE I, Fredi Forte, have independently examined this patient and performed my own physical exam, as well as reviewed the documentation and edited where necessary. I have discussed in detail with the resident / student the findings and plan of treatment as documented by the resident / student and edited their note. I agree with their findings and treatment plan and have edited their documentation. I will continue to follow the patient during this hospital stay. LAKESHA GOMEZ D.O. July 31, 2020 14:29 FREDI FORTE MD July 31, 2020 15:04
[2020-07-31 22:00] VITALS: BP 109/63
[2020-07-31 22:17] LABS: MAGNESIUM LEVEL 1.6 MG/DL (1.8-2.4)
[2020-08-01] MEDS: SODIUM CHLORIDE 0.9% INJ 10 ML SYR IV PRN ×3 (00:54→05:08)
[2020-08-01] MEDS: MEROPENEM INJ 1 GM in IV 1 EA IV SCH ×2 (00:54→09:13)
[2020-08-01] MEDS: NORCO, ANEXSIA 5/325MG TABLET (HYDROcodone/ACETAMINOPHEN) PO PRN ×6 (01:12→21:15)
[2020-08-01] MEDS: METOPROLOL TART 12.5 MG PER 1/2 TAB PO SCH ×4 (05:04→17:15)
[2020-08-01] MEDS: SODIUM CHLORIDE 0.9% INJ 10 ML SYR IV SCH ×2 (05:07→17:12)
[2020-08-01 05:37] LABS: HEMATOCRIT 31.2 % (36.0-47.0); HEMOGLOBIN 9.8 g/dl (12.0-15.5); MEAN CORPUSCULAR HEMOGLOBIN 28.9 pg (27.0-33.0); MEAN CORPUSCULAR HGB CONC 31.4 g/dl (32.0-36.5); PLATELET COUNT, AUTOMATED 187 10^3/uL (150-450); RED BLOOD COUNT 3.39 10^6/uL (4.00-5.40); WHITE BLOOD COUNT 6.6 10^3/uL (4.0-10.0)
[2020-08-01 05:58] LABS: ALT/SGPT 31 U/L (12-78); BILIRUBIN,TOTAL 0.4 MG/DL (0.2-1.0); BLOOD UREA NITROGEN 9 MG/DL (7-18); CARBON DIOXIDE LEVEL 30 MEQ/L (21-32); CHLORIDE LEVEL 105 MEQ/L (98-107); CREATININE FOR GFR 0.28 MG/DL (0.55-1.30); GLOMERULAR FILTRATION RATE > 60.0 (>51); GLUCOSE, FASTING 93 MG/DL (70-100); POTASSIUM SERUM 3.4 MEQ/L (3.5-5.1); SODIUM LEVEL 139 MEQ/L (136-145); TOTAL PROTEIN 4.7 GM/DL (6.4-8.2)
[2020-08-01 06:00] VITALS: BP 112/66
[2020-08-01 08:16] LABS: MAGNESIUM LEVEL 1.9 MG/DL (1.8-2.4)
[2020-08-01] MEDS: ENOXAPARIN 40MG/0.4ML SYRINGE (J1650 PER 10MG) SC SCH (09:10)
[2020-08-01] MEDS: METAMUCIL (PSYLLIUM) PACKET PO SCH ×2 (09:10→21:14)
[2020-08-01] MEDS: MIRALAX *UNIT DOSE* 17GM PACKET PO SCH ×2 (09:10→21:14)
[2020-08-01] MEDS: SENNA 8.6 MG TAB (SENOKOT) PO SCH ×2 (09:10→21:14)
[2020-08-01] MEDS: FUROSEMIDE 40 MG TAB PO SCH (09:11)
--- NOTE | 2020-08-01 11:10 | IPNPDOC ---
Text Note Date of Service The patient was seen on 08/01/20. NOTE SUBJECTIVE: Patient was seen and examined this morning at [facility]. She is tolerating a diet. She states she continues to have pain throughout her abdomen, slightly improved. She worked with PT yesterday and feels she is making some progress. OBJECTIVE: Vital Signs: See below GENERAL: Alert, comfortable, in no acute distress HEENT: Normocephalic, atraumatic, sclera anicteric, moist mucous membranes NECK: Supple, trachea midline, no lymphadenopathy CARDIOVASCULAR: Regular rate and rhythm, normal S1 and S2. No murmurs, rubs, or gallops RESPIRATORY: Clear to auscultation bilaterally with equal air entry bilaterally. No wheezing, rhonchi, or rales. ABDOMEN: Soft. Mildly tender to deep palpation throughout, improved from prior days. Bowel sounds are present. Midline abdominal incision with dressing in place, no active drainage from surgical sites. No surrounding erythema, swelling, or warmth. Colostomy present with soft stool in bag. EXTREMITIES: No edema. Pulses 2+/4 in bilateral upper and lower extremities NEUROLOGIC: Alert and oriented x3 to person, place and time. No focal deficits appreciated PSYCHIATRIC: Mood and affect appropriate ASSESSMENT/PLAN: 50 yo W who was admitted to [facility] as transfer for Patrick Cuellar with acute hypoxemic respiratory failure and found to have ischemic bowel 2/2 severe obstipation, presented with severe sepsis, now s/p ex-lap x 2 with sigmoid to mid rectal colectomy with colostomy placement, s/p hemorrhagic shock 2/2 rectal stump bleeding thus the second ex-lap now hemodynamically stable, extubated with noted now stable H/H. Currently managed with IV antibiotics and receiving pain medication. PT/OT involved, although she is non-weight bearing on the right leg due to recent orthopedic surgery. # Bowel ischemia: 2/2 severe obstipation likely i/s/o narcotic pain medications post ortho surgery -Post op day #18 and #13 from bowel resections. On 07/15 had resection of the sigmoid to mid rectum. Her postop course was c/b by bleeding and received a total of 10u of pRBCs and 2 FFP and had to return to the OR for another emergent ex-lap on 07/19 during with she had repair of a necrotic rectal stump, abdominal washout and evacuation of a large hematoma. - s/p IV abx for 14 day course. (initially on meropenem x4 days then switched to cipro/flagyl x6 days, back to meropenem to complete course) - continue senna BID, miralax BID, and metamucil BID scheduled bowel regimen. Ostomy output has improved with this. - Pain control with [place] q4h prn, tylenol 650mg q6h prn. Discontinue IV morphine today. - trend CBC daily. - General surgery consulted. # Acute hypoxemic respiratory failure secondary to abdominal sepsis and bowel ischemia, resolved - Extubated 07/21. s/p prednisone. d/c GI prophylaxis - Incentive spirometry # Acute blood loss anemia, resolved - likely from rectal stump bleeding, s/p second ex lap - H/H has been stable - transfuse for Hg less than 8.0 # Hypertension -continue metoprolol and amlodipine # Severe protein-calorie malnutrition - s/p TPN while npo. s/p IV albumin. - high fiber diet with supplement # Right femur fracture s/p internal fixation - surgery at [facility] on 07/02/2020 - Non weight bearing on RLE for 3 months (until 10/01/2020) - high risk for DVT. acute blood loss anemia has resolved and she has been restarted on DVT prophylaxis. - will likely need rehab on discharge DVT prophylaxis: teds and SCDs. continue SC lovenox. She is high risk for DVT given recent orthopedic surgery and sedentary status. H/H has been stable. DISPOSITION: admitted inpatient to med/surg pending clinical improvement. General surgery consulted. PT/OT consulted, patient may need rehab on discharge VS,Nevin, I+O VSNevin, I+O Laboratory Tests 08/01/20 05:16 Vital Signs Date Time Temp Pulse Resp B/P (MAP) Pulse Ox O2 Delivery O2 Flow Rate FiO2 08/01/20 09:42 17 Room Air 08/01/20 09:11 105 113/75 08/01/20 06:00 97.8 96 07/29/20 01:00 2.0 40 I&O- Last 24 Hours up to 6 AM 08/01/20 06:00 Intake Total 1530 ml Output Total 1 ml Balance 1529 ml GME ATTESTATION GME ATTESTATION My faculty preceptor for this patient encounter was physically present during the encounter and was fully available. All aspects of the patient interview, examination, medical decision making process, and medical care plan development were reviewed and approved by the faculty preceptor. The faculty preceptor is aware and concurs with the plan as stated in the body of this note and will atte st to such by his/her cosignature. ATTENDING NOTE I, Fredi Forte, have independently examined this patient and performed my own physical exam, as well as reviewed the documentation and edited where necessary. I have discussed in detail with the resident / student the findings and plan of treatment as documented by the resident / student and edited their note. I agree with their findings and treatment plan and have edited their documentation. I will continue to follow the patient during this hospital stay. LAKESHA GOMEZ D.O. August 01, 2020 11:10 FREDI FORTE MD August 01, 2020 13:50
[2020-08-01 14:00] VITALS: BP 111/74
[2020-08-01] MEDS: SIMETHICONE 80MG CHEW TAB PO PRN (18:43)
[2020-08-01 22:00] VITALS: BP 115/73
[2020-08-02] MEDS: METOPROLOL TART 12.5 MG PER 1/2 TAB PO SCH ×2 (01:03→05:35)
[2020-08-02] MEDS: SIMETHICONE 80MG CHEW TAB PO PRN ×4 (01:16→22:22)
[2020-08-02] MEDS: NORCO, ANEXSIA 5/325MG TABLET (HYDROcodone/ACETAMINOPHEN) PO PRN ×5 (01:17→22:22)
[2020-08-02] MEDS: SODIUM CHLORIDE 0.9% INJ 10 ML SYR IV SCH ×2 (05:34→16:14)
[2020-08-02] MEDS: SODIUM CHLORIDE 0.9% INJ 10 ML SYR IV PRN (05:34)
[2020-08-02 06:00] VITALS: BP 111/70
[2020-08-02 06:35] LABS: HEMATOCRIT 32.3 % (36.0-47.0); HEMOGLOBIN 10.2 g/dl (12.0-15.5); MEAN CORPUSCULAR HEMOGLOBIN 28.9 pg (27.0-33.0); MEAN CORPUSCULAR HGB CONC 31.6 g/dl (32.0-36.5); MEAN CORPUSCULAR VOLUME 91.5 fl (80.0-96.0); PLATELET COUNT, AUTOMATED 177 10^3/uL (150-450); RED BLOOD COUNT 3.53 10^6/uL (4.00-5.40); WHITE BLOOD COUNT 6.4 10^3/uL (4.0-10.0)
[2020-08-02 06:59] LABS: ALBUMIN 2.1 GM/DL (3.2-5.2); ALT/SGPT 31 U/L (12-78); BILIRUBIN,TOTAL 0.5 MG/DL (0.2-1.0); BLOOD UREA NITROGEN 9 MG/DL (7-18); CALCIUM LEVEL 7.8 MG/DL (8.5-10.1); CARBON DIOXIDE LEVEL 28 MEQ/L (21-32); CHLORIDE LEVEL 104 MEQ/L (98-107); CREATININE FOR GFR 0.29 MG/DL (0.55-1.30); GLOMERULAR FILTRATION RATE > 60.0 (>51); GLUCOSE, FASTING 97 MG/DL (70-100); POTASSIUM SERUM 3.4 MEQ/L (3.5-5.1); SODIUM LEVEL 137 MEQ/L (136-145); TOTAL PROTEIN 5.2 GM/DL (6.4-8.2)
[2020-08-02] MEDS ORDERED: POTASSIUM CHLORIDE 10% LIQ 20 MEQ/15 ML UDC PO ONE (07:15)
[2020-08-02] MEDS: FUROSEMIDE 40 MG TAB PO SCH (08:30)
[2020-08-02] MEDS: ENOXAPARIN 40MG/0.4ML SYRINGE (J1650 PER 10MG) SC SCH (08:31)
[2020-08-02] MEDS: MIRALAX *UNIT DOSE* 17GM PACKET PO SCH ×2 (08:31→21:00)
[2020-08-02] MEDS: SENNA 8.6 MG TAB (SENOKOT) PO SCH ×2 (08:31→22:04)
[2020-08-02] MEDS: METAMUCIL (PSYLLIUM) PACKET PO SCH ×2 (08:31→21:00)
--- NOTE | 2020-08-02 10:32 | IPNPDOC ---
Text Note Date of Service The patient was seen on 08/02/20. NOTE Subjective: Patient is a 50-year-old female with a PMHx of HTN, DLP, CVA w/ residual R sided weakness, COPD, Fibromyalgia, Osteoarthritis, who had fallen and fractured her right femur early June and was admitted to [facility] for orthopedic intervention. Patient was subsequently discharged home with instructions to continue with Lovenox and remain nonweightbearing for the next 3 months. At home, patient had developed constipation and subsequently had complained of severe abdominal pain and came into [facility]. While in the emergency room at that time, patient gone into respiratory distress and was intubated and transferred to [facility] for further evaluation. On arrival, patient was admitted to the intensive service and general surgery, Dr. Roberts had performed a resection of the sigmoid to mid rectum for ischemic colon 2/2 to severe obstipation (07/15/2020). Her postop course was c/b by bleeding and received a total of 10u of PRBCs and 2 FFP and had to return to the OR for another emergent ex-lap (07/19/2020) during with she had repair of a necrotic rectal stump, abdominal washout and evacuation of a large hematoma. Patient continued to remain intubated and on pressor support Patient was extubated on 07/21/2020 transitioned to the hospitalist service. Patient had a diet slowly advanced and was taken off TPN nutrition. She was initially on nasal cannula oxygen and has now been tolerating room air. Patient has completed a course of antibiotics for 14 days, has been transitioned off of parenteral narcotics and has continued to work with physical therapy. Is reported that this morning patient has been cleared from a physical therapy standpoint for discharge home tomorrow with services. Patient was seen and examined at the bedside. Patient was sitting up in chair. Denies any nausea, vomiting, chest pain, shortness breath, palpitations. Denies any significant abdominal pain this morning but did report some cramping that was alleviated with simethicone output from her ostomy continues to be adequate. Patient did report some output from her rectum. No significant blood noted. Objective: Vitals (See below) General: This morning patient is sitting in chair, appears to be comfortable, not in any acute distress, AAOx3 HEENT: NC, AT CVS: +S1S2 Lungs: Fair air entry b/l, -w/r/r Abdomen: Soft, ND, NT, midline incision; jaxson present. No drainage, erythema or tenderness or warmth, + ostomy (output noted) Extremities: - Edema, - Calf tenderness Imaging: CXR 07/14: 1. Endotracheal tube and nasogastric tube in appropriate position. 2. No evidence of acute pleural or parenchymal disease CTA Chest 07/14: 1. No evidence of acute pulmonary embolism. 2. No thoracic aortic aneurysm or dissection. 3. Emphysema and evidence of prior granulomatous disease with multiple pulmonary granulomata. 4. Dilated, fluid-filled small bowel and colon visualized in the upper abdomen. The bowel gas pattern is not fully assessed, but this may be due to an ileus or a distal bowel obstruction. Abdomen XR 07/14: Right femoral catheter with the tip probably in the IVC. CXR 07/21: 1. Lines and tubes in stable satisfactory position. 2. Possible left lower lobe/retrocardiac atelectasis and/or consolidation. CT abdomen / pelvis 07/27: - Mild patchy bibasilar atelectasis/infiltrate. - Rectal stump is significantly distended with fluid and there are multiple foci of air also seen within. The superior margin of the stump is ill-defined alistair tible with necrosis and dehiscence. There is mild scattered fluid just superior to the rectal stump which appears to be located along the margin of the omental patch, along with multiple foci of air. This fluid, as well as the fluid within the rectal stump, may be infected. - There is also mild free fluid throughout the left paracolic gutter, and there is mild fluid in the left abdominal wall surrounding the exiting colostomy. Assessment and plan: Bowel ischemia: 2/2 severe obstipation - possibly 2/2 narcotic pain medications post ortho surgery - Currently patient does not have any significant abdominal pain - Hemodynamically stable and afebrile - Physical does not reveal any significant abdominal tenderness - No leukocytosis - s/p Diagnostic Laparoscopic converted to Exploratory Laparotomy, Resection of Sigmoid to mid rectum for ischemia, end colostomy on 07/14/[address] Roberts - s/p Exploratory Laparotomy, Evacuation of hematoma and stool in the pelvis, debridement of rectal stump, suture closure, oversewing of rectal stump, rectal stump washout, abdomen and pelvic washout on 07/19/[address] Roberts - s/p Antibiotic course (Meropenem / Cipro and Flagyl) for 14 days - c/w Bowel regimen as ordered - c/w Adjust dose of pain control; has been titrated down - General surgery on consultation; appreciate their input s/p Acute hypoxemic respiratory failure secondary to abdominal sepsis and bowel ischemia - Extubated on 07/21/2020 - s/p Prednisone - c/w Incentive spirometry s/p Acute blood loss anemia - likely from rectal stump bleeding, s/p second ex lap - Hemoglobin has remained stable - s/p 10 units PRBC - s/p 2 units FFP Hypertension - BP well controlled - c/w metoprolol (will adjust dose / frequency), Amlodipine, Furosemide Severe protein-calorie malnutrition - s/p TPN while npo - s/p IV albumin. - c/w high fiber diet with supplement Right femur fracture s/p internal fixation - Surgery completed at [facility] on 07/02/2020 - Non weight bearing on RLE for 3 months (until 10/01/2020) - high risk for DVT; resumed Lovenox at adjusted dose - s/p acute blood loss anemia - c/w PT and OT DVT prophylaxis - c/w Lovenox; resumed given her NWB status of her RLE Disposition: - Patient has been cleared by physical therapy for discharge home with services - Anticipate discharge home tomorrow VS,Nevin, I+O VS, Nevin, I+O Laboratory Tests 08/02/20 05:59 Vital Signs Date Time Temp Pulse Resp B/P (MAP) Pulse Ox O2 Delivery O2 Flow Rate FiO2 08/02/20 10:02 17 Room Air 08/02/20 08:31 117 120/81 08/02/20 06:00 98.4 96 07/29/20 01:00 2.0 40 I&O- Last 24 Hours up to 6 AM 08/02/20 06:00 Intake Total 700 ml Balance 700 ml JAGJIT FORTE MD August 02, 2020 10:32
[2020-08-02 14:00] VITALS: BP 114/70
[2020-08-02 22:00] VITALS: BP 114/71
[2020-08-02] MEDS: METOPROLOL TART 25 MG TABLET PO SCH (22:04)
[2020-08-03] MEDS: SIMETHICONE 80MG CHEW TAB PO PRN ×4 (04:25→22:00)
[2020-08-03] MEDS: NORCO, ANEXSIA 5/325MG TABLET (HYDROcodone/ACETAMINOPHEN) PO PRN ×4 (04:25→22:28)
[2020-08-03 05:59] LABS: HEMATOCRIT 32.2 % (36.0-47.0); MEAN CORPUSCULAR HEMOGLOBIN 28.5 pg (27.0-33.0); MEAN CORPUSCULAR HGB CONC 31.1 g/dl (32.0-36.5); MEAN CORPUSCULAR VOLUME 91.7 fl (80.0-96.0); PLATELET COUNT, AUTOMATED 184 10^3/uL (150-450); RED BLOOD COUNT 3.51 10^6/uL (4.00-5.40); WHITE BLOOD COUNT 6.9 10^3/uL (4.0-10.0)
[2020-08-03 06:00] VITALS: BP 110/72
[2020-08-03] MEDS: SODIUM CHLORIDE 0.9% INJ 10 ML SYR IV SCH ×2 (06:00→18:22)
[2020-08-03 06:28] LABS: ALBUMIN 2.1 GM/DL (3.2-5.2); ALT/SGPT 27 U/L (12-78); BILIRUBIN,TOTAL 0.5 MG/DL (0.2-1.0); BLOOD UREA NITROGEN 10 MG/DL (7-18); CALCIUM LEVEL 8.1 MG/DL (8.5-10.1); CARBON DIOXIDE LEVEL 27 MEQ/L (21-32); CHLORIDE LEVEL 106 MEQ/L (98-107); CREATININE FOR GFR 0.27 MG/DL (0.55-1.30); GLOMERULAR FILTRATION RATE > 60.0 (>51); GLUCOSE, FASTING 97 MG/DL (70-100); POTASSIUM SERUM 3.5 MEQ/L (3.5-5.1); SODIUM LEVEL 139 MEQ/L (136-145); TOTAL PROTEIN 4.9 GM/DL (6.4-8.2)
[2020-08-03] MEDS ORDERED: POTASSIUM CHLORIDE 10% LIQ 20 MEQ/15 ML UDC PO ONE (07:15)
[2020-08-03] MEDS ORDERED: MAG SULF 1GM/100ML (MAG RUN) 1 GM in IV 1 EA IV ONE (08:00)
[2020-08-03] MEDS ORDERED: FURO40TA2 PO (08:39)
[2020-08-03] MEDS ORDERED: MI-A80CH PO (08:39)
[2020-08-03] MEDS ORDERED: META1POW PO (08:39)
[2020-08-03] MEDS ORDERED: HYDR-3715 PO (08:39)
[2020-08-03] MEDS ORDERED: SENN18TA PO (08:39)
[2020-08-03] MEDS ORDERED: MIRA1POW3 PO (08:39)
[2020-08-03] MEDS ORDERED: METO1TAB87 PO (08:39)
[2020-08-03] MEDS ORDERED: GABA-1171 PO (08:39)
[2020-08-03] MEDS ORDERED: ENOX30IN3 SC (08:39)
[2020-08-03] MEDS ORDERED: AMLO1TAB25 PO (08:39)
[2020-08-03] MEDS: FUROSEMIDE 40 MG TAB PO SCH (10:15)
[2020-08-03] MEDS ORDERED: POTASSIUM CHLORIDE 10 MEQ SR TABLET PO ONE (10:15)
[2020-08-03] MEDS: METOPROLOL TART 25 MG TABLET PO SCH ×2 (10:15→21:59)
[2020-08-03] MEDS: SENNA 8.6 MG TAB (SENOKOT) PO SCH (10:17)
[2020-08-03] MEDS: ENOXAPARIN 40MG/0.4ML SYRINGE (J1650 PER 10MG) SC SCH (10:26)
[2020-08-03] MEDS: METAMUCIL (PSYLLIUM) PACKET PO SCH ×2 (10:26→21:00)
--- NOTE | 2020-08-03 13:01 | DS.PDOC ---
Discharge Summary General Date of Admission July 14, 2020 at 04:17 Date of Discharge 08/03/2020 Discharge Summary PROCEDURES PERFORMED DURING STAY: - s/p Diagnostic Laparoscopic converted to Exploratory Laparotomy, Resection of Sigmoid to mid rectum for ischemia, end colostomy on 07/14/[address] Roberts - s/p PICC line insertion right brachial vein performed at the bedside on 07/15 with IR - s/p Endotracheal intubation on 07/18/[address] Gurrola - s/p Bronchoscopy on 07/18/[address] Gurrola - s/p Left triple-lumen venous catheter on 07/18/[address] Gurrola - s/p Exploratory Laparotomy, Evacuation of hematoma and stool in the pelvis, debridement of rectal stump, suture closure, oversewing of rectal stump, rectal stump washout, abdomen and pelvic washout on 07/19/[address] Roberts ADMITTING DIAGNOSES / DISCHARGE DIAGNOSES: Bowel ischemia: 2/2 severe obstipation - possibly 2/2 narcotic pain medications post ortho surgery High output ostomy s/p Acute hypoxemic respiratory failure secondary to abdominal sepsis and bowel ischemia s/p Acute blood loss anemia - likely from rectal stump bleeding, s/p second ex lap Hypertension Severe protein-calorie malnutrition Right femur fracture s/p internal fixation DVT prophylaxis COMPLICATIONS/CHIEF COMPLAINT: Metabolic Acidosis / Respiratory Failure HISTORY OF PRESENT ILLNESS: Patient is a 50-year-old female with a PMHx of HTN, DLP, CVA w/ residual R sided weakness, COPD, Fibromyalgia, Osteoarthritis, who had fallen and fractured her right femur early June and was admitted to [facility] for orthopedic intervention. Patient was subsequently discharged home with instructions to continue with Lovenox and remain nonweightbearing for the next 3 months. At home, patient had developed constipation and subsequently had complained of severe abdominal pain and came into [facility]. While in the emergency room at that time, patient gone into respiratory distress and was intubated and transferred to [facility] for further evaluation. On arrival, patient was admitted to the intensive service and general surgery, Dr. Roberts had performed a resection of the sigmoid to mid rectum for ischemic colon 2/2 to severe obstipation (07/15/2020). Her postop course was c/b by bleeding and received a total of 10u of PRBCs and 2 FFP and had to return to the OR for another emergent ex-lap (07/19/2020) during with she had repair of a necrotic rectal stump, abdominal washout and evacuation of a large hematoma. Patient continued to remain intubated and on pressor support Patient was extubated on 07/21/2020 transitioned to the hospitalist service. Patient had a diet slowly advanced and was taken off TPN nutrition. She was initially on nasal cannula oxygen and has now been tolerating room air. Patient has completed a course of antibiotics for 14 days, has been transitioned off of parenteral narcotics and has continued to work with physical therapy. Is reported that this morning patient has been cleared from a physical therapy standpoint for discharge home tomorrow with services. Patient was seen and examined at the bedside. Patient was sitting up in chair. Denies any nausea, vomiting, chest pain, shortness breath, palpitations. Denies any significant abdominal pain this morning but did report some cramping that was alleviated with simethicone output from her ostomy continues to be adequate. Patient did report some output from her rectum. No significant blood noted. HOSPITAL COURSE: Bowel ischemia: 2/2 severe obstipation - possibly 2/2 narcotic pain medications post ortho surgery - Denies any abdominal pain / hemodynamically stable / afebrile - Physical does not reveal any significant abdominal tenderness / Wound appears clean without any signs of infection - No leukocytosis - s/p Diagnostic Laparoscopic converted to Exploratory Laparotomy, Resection of Sigmoid to mid rectum for ischemia, end colostomy on 07/14/[address] Roberts - s/p Exploratory Laparotomy, Evacuation of hematoma and stool in the pelvis, debridement of rectal stump, suture closure, oversewing of rectal stump, rectal stump washout, abdomen and pelvic washout on 07/19/[address] Roberts - s/p Antibiotic course (Meropenem / Cipro and Flagyl) for 14 days - c/w Bowel regimen as ordered - dose reduced - s/p Morphine; on reduced dose of [place] - General surgery on consultation; appreciate their input High output ostomy - This morning patient had significant output from her ostomy - Patient's bowel regimen was adjusted to help reduce output and increased belching - Patient was advised to remain inpatient to continue monitoring her from ostomy; including watching her blood pressure and electrolytes - Patient has requested to leave AGAINST MEDICAL ADVICE; she has filled out AMA paperwork s/p Acute hypoxemic respiratory failure secondary to abdominal sepsis and bowel ischemia - Extubated on 07/21/2020 - s/p Prednisone - c/w Incentive spirometry s/p Acute blood loss anemia - likely from rectal stump bleeding, s/p second ex lap - Hemoglobin has remained stable - s/p 10 units PRBC - s/p 2 units FFP Hypertension - BP well controlled - c/w metoprolol, Amlodipine, Furosemide Severe protein-calorie malnutrition - s/p TPN while NPO - s/p IV albumin - c/w high fiber diet with supplement Right femur fracture s/p internal fixation - Surgery completed at [facility] on 07/02/2020 - Non weight bearing on RLE for 3 months (until 10/01/2020) - high risk for DVT; resumed Lovenox at adjusted dose - s/p acute blood loss anemia - c/w PT and OT - Patient has been advised to follow-up with orthopedic surgeon within the next 7 days DVT prophylaxis - c/w Lovenox; resumed given her NWB status of her RLE DISCHARGE MEDICATIONS: Please see below. ALLERGIES: Please see below. PHYSICAL EXAMINATION ON DISCHARGE: Vitals (See below) General: Patient lying in bed, appears relatively comfortable, is adamant that she is leaving the hospital today, awake/alert, oriented to person, place and time HEENT: Normocephalic and atraumatic CVS: +S1S2 Lungs: Fair air entry b/l, no evidence of wheezing, crackles or rhonchi Abdomen: Soft, nondistended and nontender, midline incision healing well, + ostomy (large amount of output noted) Extremities: Lower extremities are without any significant edema, - Calf tender ness LABORATORY DATA: Please see below. IMAGING: CXR 07/14: 1. Endotracheal tube and nasogastric tube in appropriate position. 2. No evidence of acute pleural or parenchymal disease CTA Chest 07/14: 1. No evidence of acute pulmonary embolism. 2. No thoracic aortic aneurysm or dissection. 3. Emphysema and evidence of prior granulomatous disease with multiple pulmonary granulomata. 4. Dilated, fluid-filled small bowel and colon visualized in the upper abdomen. The bowel gas pattern is not fully assessed, but this may be due to an ileus or a distal bowel obstruction. Abdomen XR 07/14: Right femoral catheter with the tip probably in the IVC. CXR 07/21: 1. Lines and tubes in stable satisfactory position. 2. Possible left lower lobe/retrocardiac atelectasis and/or consolidation. CT abdomen / pelvis 07/27: - Mild patchy bibasilar atelectasis/infiltrate. - Rectal stump is significantly distended with fluid and there are multiple foci of air also seen within. The superior margin of the stump is ill-defined compatible with necrosis and dehiscence. There is mild scattered fluid just superior to the rectal stump which appears to be located along the margin of the omental patch, along with multiple foci of air. This fluid, as well as the fluid within the rectal stump, may be infected. - There is also mild free fluid throughout the left paracolic gutter, and there is mild fluid in the left abdominal wall surrounding the exiting colostomy. ACTIVITY: [As tolerated]. DISCHARGE PLAN: Follow-up with primary care provider within the next 7 days Follow-up with general surgery and orthopedic surgery within the next 7 days Follow-up with psychiatry within the next 7 days Remain compliant with treatment plan and medications Return to the ER if you experience any problems DISPOSITION: Left AGAINST MEDICAL ADVICE DISCHARGE CONDITION: [Stable]. TIME SPENT ON DISCHARGE: 35 minutes Vital Signs/I&Os Vital Signs Date Time Temp Pulse Resp B/P (MAP) Pulse Ox O2 Delivery O2 Flow Rate FiO2 08/03/20 10:56 18 95 Room Air 08/03/20 10:15 98 103/56 08/03/20 06:00 98.0 07/29/20 01:00 2.0 40 I&O- Last 24 Hours up to 6 AM 08/03/20 05:59 Intake Total 1260 ml Balance 1260 ml Laboratory Data Labs 24H Laboratory Tests 2 08/03/20 05:43: Nucleated Red Blood Cells % (auto) 0.0, Anion Gap 6L, Glomerular Filtration Rate > 60.0, Calcium Level 8.1L, Magnesium Level 1.7L, Total Bilirubin 0.5, Aspartate Amino Transf (AST/SGOT) 39H, Alanine Aminotransferase (ALT/SGPT) 27, Alkaline Phosphatase 141H, Total Protein 4.9L, Albumin 2.1L, Albumin/Globulin Ratio 0.8L CBC/BMP Laboratory Tests 08/03/20 05:43 Discharge Medications Scheduled Amlodipine Besylate (Amlodipine Besylate) 10 Mg Tablet, 10 MG PO DAILY Ascorbic Acid (Vitamin C) 500 Mg Tablet, 500 MG PO DAILY, (Reported) Aspirin (Aspirin) 81 Mg Tab.chew, 81 MG PO DAILY, (Reported) Cyanocobalamin (Cyanocobalamin Injection) 1,000 Mcg/1 Ml Vial, 1,000 MCG IM QMONTH, (Reported) Enoxaparin Sodium (Enoxaparin Sodium) 30 Mg/0.3 Ml Syringe, 40 MG SC DAILY Ergocalciferol (Vitamin D2) (Vitamin D2) 50,000 Units Cap, 50,000 UNITS PO 2XW, (Reported) Ferrous Sulfate (Ferrous Sulfate) 325 Mg Tablet, 325 MG PO BID, (Reported) Furosemide (Furosemide) 40 Mg Tablet, 40 MG PO DAILY Gabapentin (Gabapentin) 100 Mg Capsule, 1 CAP PO TID Hydroxyzine Pamoate (Hydroxyzine Pamoate) 50 Mg Capsule, 50 MG PO BID, (Reported) Magnesium Oxide (Magnesium Oxide) 400 Mg Tablet, 400 MG PO DAILY, (Reported) Metoprolol Tartrate (Metoprolol Tartrate) 25 Mg Tablet, 25 MG PO BID Polyethylene Glycol 3350 (Miralax) 17 Gm Powd.pack, 2 PKT PO DAILY Psyllium Husk/Aspartame (Metamucil Fiber Singles Packet) 3.4 Gm Powd.pack, 1 PKT PO BID Senna (Senna Lax) 8.6 Mg Tablet, 2 TAB PO BID Scheduled PRN Hydrocodone/Acetaminophen (Hydrocodone-Acetamin 5-325 mg) 1 Each Tablet, 1 TAB PO Q6HP PRN for MILD/MODERATE PAIN (PS 1-7) Simethicone (Mi-Acid) 80 Mg Tab.chew, 80 MG PO QIDP PRN for BLOATING Allergies Coded Allergies: hydroxyzine (Verified Allergy, Mild, TREMORS, 07/14/20) topiramate (Verified Allergy, Mild, RASH, 07/14/20) codeine (Verified Adverse Reaction, Mild, NAUSEA, 07/14/20) meperidine (Verified Adverse Reaction, Mild, NAUSEA, 07/14/20) JAGJIT FORTE MD August 03, 2020 13:01
[2020-08-03 14:00] VITALS: BP 116/66
--- NOTE | 2020-08-03 16:35 | REP ---
INDICATION: Fever COMPARISON: 07/21/2020 TECHNIQUE: Portable AP view of the chest FINDINGS: Right PICC line with tip in the SVC. The mediastinum and cardiac silhouette are stable and within normal limits for portable technique. The lung rodriges again demonstrate very small nodular densities unchanged. No acute consolidation, effusion, or pneumothorax. Loop recorder overlies the mediastinum. Skeletal structures are intact. IMPRESSION: No acute cardiopulmonary process appreciated. <Electronically signed by Ghassan Geronimo > 08/03/20 [id number]
--- NOTE | 2020-08-03 16:37 | REP ---
INDICATION: Fever / Abdominal surgery COMPARISON: None. TECHNIQUE: Portable supine views of the abdomen and pelvis. FINDINGS: Bowel gas pattern is nonspecific and without obstruction or perforation. No organomegaly. No abnormal calcifications. Skeletal structures intact. Evidence for prior cholecystectomy. IMPRESSION: Nonspecific bowel gas pattern. <Electronically signed by Ghassan Gernoimo > 08/03/20 [id number]
[2020-08-03 21:59] VITALS: BP 118/72
[2020-08-03 22:00] VITALS: BP 118/72
[2020-08-04] MEDS: SODIUM CHLORIDE 0.9% INJ 10 ML SYR IV SCH (05:03)
[2020-08-04 05:31] LABS: HEMATOCRIT 32.6 % (36.0-47.0); HEMOGLOBIN 10.1 g/dl (12.0-15.5); MEAN CORPUSCULAR HEMOGLOBIN 28.3 pg (27.0-33.0); MEAN CORPUSCULAR VOLUME 91.3 fl (80.0-96.0); PLATELET COUNT, AUTOMATED 172 10^3/uL (150-450); RED BLOOD COUNT 3.57 10^6/uL (4.00-5.40); WHITE BLOOD COUNT 7.6 10^3/uL (4.0-10.0)
[2020-08-04 05:59] LABS: ALBUMIN 2.1 GM/DL (3.2-5.2); ALT/SGPT 24 U/L (12-78); BILIRUBIN,TOTAL 0.5 MG/DL (0.2-1.0); BLOOD UREA NITROGEN 6 MG/DL (7-18); CARBON DIOXIDE LEVEL 25 MEQ/L (21-32); CHLORIDE LEVEL 108 MEQ/L (98-107); CREATININE FOR GFR 0.27 MG/DL (0.55-1.30); GLOMERULAR FILTRATION RATE > 60.0 (>51); GLUCOSE, FASTING 100 MG/DL (70-100); MAGNESIUM LEVEL 1.7 MG/DL (1.8-2.4); POTASSIUM SERUM 3.4 MEQ/L (3.5-5.1); SODIUM LEVEL 139 MEQ/L (136-145); TOTAL PROTEIN 5.3 GM/DL (6.4-8.2)
[2020-08-04 06:00] VITALS: BP 115/73
[2020-08-04] MEDS: NORCO, ANEXSIA 5/325MG TABLET (HYDROcodone/ACETAMINOPHEN) PO PRN (06:11)
[2020-08-04] MEDS: SIMETHICONE 80MG CHEW TAB PO PRN (06:11)
[2020-08-04] MEDS ORDERED: MIRALAX *UNIT DOSE* 17GM PACKET PO PRN (09:00)
--- NOTE | 2020-08-06 16:47 | CCN ---
CRITICAL CARE NOTE DATE: 07/14/2020 START TIME: 814 STOP TIME: 913 SUBJECTIVE: Again I attended Susanna Portillo here in the Intensive Care Unit. The patient has been examined, chart reviewed. I spoke at length with the nurse at the bedside. She is more alert. Clearly with abdominal discomfort. She is currently on max dose Levophed. Mean arterial pressure at 66-68. She is making urine. She is a little more tachycardic. T-max 98.3. OBJECTIVE: GENERAL: She is clearly ill-appearing. HEENT: Pupils react. Sclerae are clear. Membranes are moist. NEUROLOGIC: She moves all extremities. CHEST: Clear to auscultation and percussion, symmetric. No significant focal adventitious breath sounds are identified. Tactile fremitus palpable throughout. CARDIAC: Cardiac exam is tachycardic. Peripheral pulses are diminished but palpable. No obvious edema. ABDOMEN: Abdomen remains distended, quiet, tender in all quadrants. I do believe there is some rebound. EXTREMITIES: Extremities show her surgical dressings from her RF and what most likely looks like external fixator are in place. The IO in the left tibia has been removed. NEUROLOGIC: Neurologically she is sedated, arousable, moves all extremities. PSYCHIATRIC: Intermittent agitation. Most recent laboratories show her lactate which was down to 2.6 is mildly up at 3.2. Chemistries and CBC are pending. Repeat blood gas on a PRVC rate of 20, tidal volume 400, PEEP of 5, FiO2 of 30% has a pH of 7.234, pCO2 or 31 and a PaO2 of 84.4. MOST PRESSING PROBLEMS REQUIRING MY IMMEDIATE PRESENCE AT THE BEDSIDE: 1. Metabolic acidosis. 2. Respiratory failure on the basis of the above. 3. Abnormal abdominal exam. 4. Acute kidney injury. 5. Recent ORIF of the right hip. 6. Previous abdominal surgery. PLAN: At this point we will continue aggressive volume resuscitation. I will supplement her with some bicarb pending the above. I have spoken with Dr. Roberts from general surgery who has graciously agreed to become involved in her care as I do believe she has significant intra-abdominal issues. That evaluation is currently pending. We have been unable to identify a family spokesperson as two daughters who are listed on the face sheet have been unable to be reached and one daughter from [place] is called. All are listed as health care proxies but we have no documentation and the patient is in no condition to tell us. Apparently she has a boyfriend but not a legal . At this point we will continue broad spectrum antimicrobials. Ulcer and DVT prophylaxis are in place. We will assure adequate volume resuscitation as I await surgical evaluation as she certainly may require operative intervention. We will recheck not only her electrolytes but her renal function. She did have mildly abnormal liver function studies probably on the basis of her intra-abdominal process. At this point we will proceed as outlined. Her prognosis remains guarded. I left the bedside at 0914 hours. An additional 59 minutes of critical care were delivered at the bedside not including procedures.
--- NOTE | 2020-08-06 16:47 | HPE ---
HISTORY AND PHYSICAL/CRITICAL CARE NOTE DATE OF ADMISSION: 07/14/2020 START TIME: 344 STOP TIME: 434 HISTORY OF PRESENT ILLNESS: I was called to attend Susanna Portillo here in the emergency room. She was received in transfer from [facility]. History is somewhat sketchy. What we do know is that she presented there, I believe on the of this month, with a right hip fracture, was transferred to [facility] where she underwent open reduction, internal fixation (ORIF). I have none of those records immediately available to me. She presented to [facility] late last evening complaining of abdominal pain. Apparently, she rapidly decompensated and was, therefore, intubated. She was profoundly hypotensive. They were not able to get adequate IV access. An intraosseous infusion (IO) was placed in the left leg. She was on high-dose Levophed as well as epinephrine there through the IO. They attempted to get a CT angiogram and contrast was actually given through the IO. She was then transferred here for further management. On arrival, central access was placed by the emergency room (ER). She was changed over to standard-dose Levophed with mean arterial pressure currently 71. She is also on a fentanyl drip for pain. Heart rate about 100. ALLERGIES: Allergies listed as CODEINE, HYDROXYZINE, MEPERIDINE, and TOPAMAX. Other medications unknown at this point. PAST MEDICAL HISTORY: Significant for recent ORIF. There is a history of given of previous gastric bypass, breast implants. SOCIAL HISTORY, FAMILY HISTORY: Unknown. REVIEW OF SYSTEMS: Unobtainable. PHYSICAL EXAMINATION: Currently, physical exam reveals an ill-appearing female who appears her stated age. Heart rate 101 with a sinus mechanism. Blood pressure 109 systolic on Levophed drip. Respiratory rate 18-20. She does overbreathe the ventilator. She was making reasonable urine. HEENT: Show pupils do react. Sclerae clear. Trachea is in the midline. Oral endotracheal and gastric tubes are in place. She has multiple tattoos. Chest is clear to both auscultation and percussion, symmetric with no significant focal adventitious breath sounds are identified. Tactile fremitus is palpable throughout. Cardiac exam is somewhat distant, regular. Peripheral pulses are diminished but palpable. Abdomen is distended, is quiet. No convincing organomegaly or masses. Extremities show no obvious cyanosis or clubbing. She has dressings still in place consistent with her surgery of the right hip. Neurologically, she is sedate but does move all extremities. Psychiatric exam shows her to be sedate. Most recent laboratory showed a sodium of 134, potassium 5.9, chloride 103, CO2 of 17, BUN 31, creatinine 2.0, glucose 166. Lactic acid 2.6, down from 5.7 at [facility]. Bilirubin 1.2. AST 108, ALT 35, alkaline phosphatase 659, LDH 504. Albumin 25. Coagulations show INR 1.23, PTT of 462. White blood cell count 27.7, hemoglobin of 11, platelet count of 550,000. Chemistries are pending. Most recent venous blood gas obtained at 0307 hours shows a pH of 7.091 and a pCO2 of 47.9. IMPRESSION/MOST PRESSING PROBLEMS REQUIRING MY IMMEDIATE PRESENCE AT THE BEDSIDE: 1. Profound metabolic acidosis. 2. Respiratory failure requiring mechanical ventilation. 3. Suspect sepsis with shock. 4. Recent open reduction, internal fixation (ORIF). 5. Ileus versus small bowel obstruction. CT scan of the chest, abdomen and pelvis was done here as an angiogram. I reviewed those films. There is no obvious infiltrate. There is no evidence of clot. I wonder about cardiac function as most of the contrast is still within the heart. Abdomen shows diffuse small bowel dilation with air-fluid levels. I do not see any obvious free air. At this point, my concern is sepsis versus intraabdominal process. She is not known to have vascular disease but certainly has a very profound at least an ileus versus bowel obstruction. Reportedly, now I am told her main complaint presenting to [facility] was constipation. She was taking some narcotics for pain control after her hip. At this point, ventilator changes have been made. We will repeat a blood gas. We will ensure adequate volume resuscitation. She will be placed on broad-spectrum antimicrobials. I believe she was given one dose of vancomycin at [facility] but that needs to be confirmed since she was a recent hospitalization. We will obtain blood cultures. I see no evidence of embolic phenomenon. We will get an echocardiogram in view of concerns over cardiac function and the degree of her acidosis. Her lactate, however, is coming down from the one drawn at the [facility] and this will be repeated. She was on significant vasopressors with suboptimal response via an intraosseous access during her transfer. She is making reasonable urine at this point. We will continue volume resuscitation and monitor her laboratories. Ulcer and deep vein thrombosis (DVT) prophylaxis have been ordered. At this point, she is profoundly critically ill. Her prognosis is guarded at best. We will proceed as outlined above. I left the bedside at 0435 hours. Fifty minutes of critical care time were at the bedside not including procedures.
== END 2020-08-04 07:25 | disposition home or self-care (01) | DRG 710 ==
LOC: EDSEX 01:28 → M ED 01:28 → M ED INP 04:17 → M ICU 05:16 → M PCU 07-23 03:17 → M MSPAV 07-30 10:34
PROVIDERS: ADMIT Internal Medicine Pulmonary Disease; ATTEND Internal Medicine
PROC: 0DBN0ZZ Excision of Sigmoid Colon, Open Approach (ICD-10-PCS; 2020-07-14)
PROC: 30233N1 Transfusion of Nonautologous Red Blood Cells into Peripheral Vein, Percutaneous Approach (ICD-10-PCS; 2020-07-14)
PROC: 0D1N0Z4 Bypass Sigmoid Colon to Cutaneous, Open Approach (ICD-10-PCS; principal; 2020-07-14 11:00)
PROC: 02HV33Z Insertion of Infusion Device into Superior Vena Cava, Percutaneous Approach (ICD-10-PCS; 2020-07-15)
PROC: 30233K1 Transfusion of Nonautologous Frozen Plasma into Peripheral Vein, Percutaneous Approach (ICD-10-PCS; 2020-07-17)
PROC: 5A1955Z Respiratory Ventilation, Greater than 96 Consecutive Hours (ICD-10-PCS; 2020-07-18)
PROC: 0DQP0ZZ Repair Rectum, Open Approach (ICD-10-PCS; 2020-07-19)
PROC: 0W3G0ZZ Control Bleeding in Peritoneal Cavity, Open Approach (ICD-10-PCS; 2020-07-19)
PROC: 0BJ08ZZ Inspection of Tracheobronchial Tree, Via Natural or Artificial Opening Endoscopic (ICD-10-PCS; 2020-07-20)
DX: A41.9 Sepsis, unspecified organism (principal); R57.8 Other shock; J96.01 Acute respiratory failure with hypoxia; E43 Unspecified severe protein-calorie malnutrition; E87.2 Acidosis; D62 Acute posthemorrhagic anemia; I69.351 Hemiplegia and hemiparesis following cerebral infarction affecting right dominant side; K55.039 Acute (reversible) ischemia of large intestine, extent unspecified; J44.9 Chronic obstructive pulmonary disease, unspecified; K91.870 Postprocedural hematoma of a digestive system organ or structure following a digestive system procedure; I10 Essential (primary) hypertension; M79.7 Fibromyalgia; M19.90 Unspecified osteoarthritis, unspecified site; Z79.899 Other long term (current) drug therapy; Z79.82 Long term (current) use of aspirin; Z88.8 Allergy status to other drugs, medicaments and biological substances; Z53.31 Laparoscopic surgical procedure converted to open procedure; E87.6 Hypokalemia; F17.200 Nicotine dependence, unspecified, uncomplicated; K94.09 Other complications of colostomy

== ENCOUNTER → 2021-05-28 | Outpatient (CLI) | payer MEDICARE, OTHER ==
[~2021-05-28] MED LIST: ALBU8.5H INH; AMIT100TA PO; AMLO1TAB25 PO; ASPI81CH49 PO; BUSP15TA47 PO; CYAN1000VL IM; ENOX30IN3 SC; ENUL10SO PO; ERGO500029 PO; FERR1TAB8 PO; FURO40TA2 PO; GABA-1171 PO; GABA-282 PO; GABA600T4 PO; HYDR-3715 PO; HYDR50CA2 PO; LATU1TAB PO; LEVE750T5 PO; LISI5TAB11 PO; MAGN400T35 PO; META1POW PO; METO1TAB87 PO; MI-A80CH PO; MIRA1POW3 PO; MORP15TA2 PO; PATIENT COMMENT; QUET200T2; QUET50TA4 PO; SENN18TA PO; VITA500T11 PO; ZOLP12.518 PO
== END ==
LOC: M LABSMTC 09:11
PROVIDERS: ATTEND Anesthesiology
DX: Z20.828 Contact with and (suspected) exposure to other viral communicable diseases (principal); Z11.59 Encounter for screening for other viral diseases

== ENCOUNTER → 2021-05-28 | Outpatient (CLI) | payer MEDICARE, OTHER ==
[~2021-05-28] MED LIST changes: +GASTROGRAFIN SOLUTION 30ML (Q9963) As Ordered ONE
== END ==
LOC: M RAD 09:21
PROVIDERS: ATTEND Surgery
DX: K55.039 Acute (reversible) ischemia of large intestine, extent unspecified (principal)
CPT/HCPCS: 74270; Q9963

== ENCOUNTER 2021-06-02 08:53 | Day surgery (SDC) | payer MEDICARE, OTHER ==
[~2021-06-02] VITALS: Ht 170.2 cm; Wt 55.0 kg
[~2021-06-02 08:53] MED LIST changes: -GASTROGRAFIN SOLUTION 30ML (Q9963) As Ordered ONE; +NS 1,000 ML IV ONE
[2021-06-02] MEDS ORDERED: LIDOCAINE 2% 100MG/5ML SDV (FOR ANES.) As Ordered ONE (10:01)
[2021-06-02] MEDS ORDERED: propofoL 500 MG/50 ML VIAL As Ordered ONE (10:01)
[2021-06-02] MEDS ORDERED: fentaNYL 100 MCG/2 ML INJECTION As Ordered ONE (10:02)
[2021-06-02 12:53] VITALS: BP 125/75
== END 2021-06-02 13:15 | disposition home or self-care (01) ==
LOC: M OPP 08:53
PROVIDERS: ATTEND Surgery
DX: Z01.818 Encounter for other preprocedural examination (principal); K62.89 Other specified diseases of anus and rectum; K63.89 Other specified diseases of intestine; R63.4 Abnormal weight loss; K44.9 Diaphragmatic hernia without obstruction or gangrene; Z98.84 Bariatric surgery status
CPT/HCPCS: 43235; 44389; 88305; J3010

== ENCOUNTER 2022-01-20 09:37 | Observation (INO) | payer MEDICARE, MEDICAID ==
[~2022-01-20] VITALS: Ht 170.2 cm; Wt 53.9 kg
[2022-01-20] VITALS (7 sets, daily range): BP systolic 109–143; BP diastolic 68–85
[~2022-01-20 09:37] MED LIST changes: +D-50TAB PO; +GABA800T4 PO; +LATU120T PO; +MELO7.5T35 PO; -NS 1,000 ML IV ONE; +SERO50TA PO; +ceFAZolin SOD 2 GM in IV 1 EA IV ONE
[2022-01-20] MEDS ORDERED: ROCURONIUM BROMIDE 50 MG/5 ML VIAL As Ordered ONE ×3 (13:00→16:24)
[2022-01-20] MEDS ORDERED: dexameTHASONE 4 MG/ML 1ML VIAL (J1100 PER 1MG) As Ordered ONE (13:00)
[2022-01-20] MEDS ORDERED: LIDOCAINE 2% 100MG/5ML SDV (FOR ANES.) As Ordered ONE (13:00)
[2022-01-20] MEDS ORDERED: propofoL 200 MG/20 ML VIAL As Ordered ONE (13:00)
[2022-01-20] MEDS ORDERED: fentaNYL 250 MCG/5 ML INJECTION As Ordered ONE (13:00)
[2022-01-20] MEDS ORDERED: ONDANSETRON 4MG 2ML VIAL As Ordered ONE (13:00)
[2022-01-20] MEDS ORDERED: MIDAZOLAM INJ 2MG/2ML VIAL (J2250 PER 1MG) As Ordered ONE (13:01)
[2022-01-20] MEDS ORDERED: BUPIVACAINE HCL 0.25% 10ML VIAL As Ordered ONE (14:02)
[2022-01-20] MEDS ORDERED: BUPIVACAINE LIPOSOME/PF 1.3% 20ML VIAL (13.3MG/ML)(EXPAREL) As Ordered ONE (14:02)
[2022-01-20] MEDS ORDERED: GENTAMICIN SULF 80MG/2ML VIAL As Ordered ONE (14:02)
[2022-01-20] MEDS ORDERED: METOCLOPRAMIDE INJ 10MG/2ML VIAL (J2765 PER 1) As Ordered ONE (15:27)
[2022-01-20] MEDS ORDERED: SUGAMMADEX SODIUM 500 MG/5 ML VIAL (BRIDION) As Ordered ONE (15:42)
[2022-01-20] MEDS ORDERED: ACETAMINOPHEN 1000MG 100ML IV BAG As Ordered ONE (15:46)
[2022-01-20] MEDS ORDERED: PHENYLephrine 500MCG 5ML (100MCG/ML) SYRINGE As Ordered ONE (15:53)
[2022-01-20] MEDS ORDERED: HYDROmorphone HCL 2MG/ML 1ML VIAL As Ordered ONE (16:20)
[2022-01-20] MEDS ORDERED: fentaNYL 100 MCG/2 ML INJECTION IV PRN (17:35)
[2022-01-20] MEDS ORDERED: oxyCODONE 5MG TAB PO PRN (17:35)
[2022-01-20] MEDS ORDERED: LR 1,000 ML IV SCH (17:35)
[2022-01-20] MEDS ORDERED: ONDANSETRON 4MG 2ML VIAL IV PRN ×2 (17:35→18:20)
[2022-01-20] MEDS ORDERED: HYDROMORPHONE HCL 0.5 MG/ 0.5 ML SYRINGE (J1170 PER 1) IV PRN (17:35)
[2022-01-20] MEDS ORDERED: ACETAMINOPHEN TAB 650MG DOSE (2X325MG) PO PRN (18:20)
[2022-01-20] MEDS ORDERED: ALBUTEROL 90 MCG/ACT 8GM HFA INHALER INH PRN (18:20)
[2022-01-20] MEDS: LR 1,000 ML IV SCH (18:50)
[2022-01-20] MEDS ORDERED: QUET50TA4 PO (20:08)
[2022-01-20] MEDS ORDERED: MIRA3350 PO (20:08)
[2022-01-20] MEDS ORDERED: SENN-80 PO (20:08)
[2022-01-20] MEDS ORDERED: HOME MED LIST COMPLETE! XX SCH (20:10)
[2022-01-20] MEDS: PERCOCET 5MG/325MG TAB PO PRN (20:11)
[2022-01-20] MEDS ORDERED: AMITRIPTYLINE 50 MG TAB PO SCH (21:00)
[2022-01-20] MEDS ORDERED: QUEtiapine FUMARATE 50MG TAB PO SCH (21:00)
[2022-01-20] MEDS: SENNA 8.6 MG TAB (SENOKOT) PO SCH (21:33)
[2022-01-20] MEDS: busPIRone 5 MG TAB PO SCH (21:33)
[2022-01-20] MEDS: GABAPENTIN 400MG CAP PO SCH (21:33)
[2022-01-20] MEDS: hydrOXYzine 50 MG TAB PO SCH (21:33)
[2022-01-20] MEDS: ceFAZolin SOD 1 GM in D5W MINI-BAG PLUS 50 ML IV SCH (22:57)
[2022-01-20] MEDS: traMADol 50 MG TAB PO PRN (23:13)
[2022-01-21] VITALS: BP 132/80
[2022-01-21] MEDS: LR 1,000 ML IV SCH (00:48)
[2022-01-21] MEDS: PERCOCET 5MG/325MG TAB PO PRN ×3 (00:48→09:00)
[2022-01-21 04:00] VITALS: BP 145/84
[2022-01-21] MEDS: ceFAZolin SOD 1 GM in D5W MINI-BAG PLUS 50 ML IV SCH (06:43)
[2022-01-21 08:00] VITALS: BP 137/76
[2022-01-21] MEDS ORDERED: LURASIDONE HCL 40MG TAB (LATUDA) PO SCH (08:00)
[2022-01-21] MEDS: busPIRone 5 MG TAB PO SCH (08:11)
[2022-01-21] MEDS: hydrOXYzine 50 MG TAB PO SCH (08:12)
[2022-01-21] MEDS: GABAPENTIN 400MG CAP PO SCH (08:12)
[2022-01-21] MEDS: SENNA 8.6 MG TAB (SENOKOT) PO SCH (08:13)
[2022-01-21] MEDS ORDERED: MIRALAX *UNIT DOSE* 17GM PACKET PO SCH (09:00)
[2022-01-21] MEDS ORDERED: QUEtiapine FUMARATE 50MG TAB PO SCH (09:00)
[2022-01-21] MEDS ORDERED: PERCOCET PO (11:15)
[2022-01-21] MEDS: traMADol 50 MG TAB PO PRN (11:32)
== END 2022-01-21 11:45 | disposition home or self-care (01) ==
LOC: M SDC 09:37 → M ED INP 09:38 → M PED 19:00
PROVIDERS: ADMIT Plastic Surgery Surgery of the Hand; ATTEND Plastic Surgery Surgery of the Hand
DX: T85.44XA Capsular contracture of breast implant, initial encounter (principal); I10 Essential (primary) hypertension; F17.210 Nicotine dependence, cigarettes, uncomplicated; Z79.899 Other long term (current) drug therapy; Z88.5 Allergy status to narcotic agent; Z88.8 Allergy status to other drugs, medicaments and biological substances; Z98.84 Bariatric surgery status
CPT/HCPCS: 19316; 19328; 87635; 88300; 88302; 96361; 96365; 96366; C9290; G0378; J0131; J0690; J1100; J1170; J1580; J2250; J2370; J2405; J2765; J3010

== ENCOUNTER 2022-12-13 06:08 | Observation (INO) | payer MEDICARE, MEDICAID ==
[~2022-12-13] VITALS: Ht 170.2 cm; Wt 62.4 kg
[~2022-12-13 06:08] MED LIST changes: +HEPARIN SOD (PORCINE) 5000UNITS/ML 1ML VIAL/SYRINGE SQ ONE; +LAMI1TAB9 PO; +LIPI20TA PO; +MIRA3350 PO; +PERCOCET PO; +PROZ20CA11 PO; +SENN-111 PO; +SENN-186 PO; -SENN18TA PO
[2022-12-13] MEDS ORDERED: LR 1,000 ML IV SCH ×2 (06:30→10:20)
[2022-12-13] MEDS ORDERED: LIDOCAINE 2% 100MG/5ML SDV (FOR ANES.) As Ordered ONE (06:55)
[2022-12-13] MEDS ORDERED: ONDANSETRON 4MG 2ML VIAL As Ordered ONE (06:56)
[2022-12-13] MEDS ORDERED: ROCURONIUM BROMIDE 50MG/5ML VIAL As Ordered ONE ×2 (06:56→08:29)
[2022-12-13] MEDS ORDERED: propofoL 200 MG/20 ML VIAL As Ordered ONE (06:56)
[2022-12-13] MEDS ORDERED: SUGAMMADEX SODIUM 500 MG/5 ML VIAL (BRIDION) As Ordered ONE (06:56)
[2022-12-13] MEDS ORDERED: fentaNYL 250 MCG/5 ML INJECTION As Ordered ONE (07:00)
[2022-12-13] MEDS ORDERED: MIDAZOLAM INJ 2MG/2ML VIAL As Ordered ONE (07:00)
[2022-12-13] MEDS ORDERED: GENTAMICIN SULF 80MG/2ML VIAL As Ordered ONE (07:16)
[2022-12-13] MEDS ORDERED: ACETAMINOPHEN 1000MG 100ML IV BAG As Ordered ONE (07:49)
[2022-12-13] MEDS ORDERED: HYDROmorphone HCL 2MG/ML 1ML VIAL As Ordered ONE (09:43)
[2022-12-13] MEDS ORDERED: HYDROMORPHONE HCL 0.5 MG/ 0.5 ML SYRINGE IV PRN (10:20)
[2022-12-13] MEDS ORDERED: fentaNYL 100 MCG/2 ML INJECTION IV PRN (10:20)
[2022-12-13] MEDS ORDERED: oxyCODONE 5MG TAB PO PRN (10:20)
[2022-12-13] MEDS ORDERED: ONDANSETRON 4MG 2ML VIAL IV PRN ×2 (10:20→10:45)
[2022-12-13] MEDS ORDERED: ALBUTEROL 90 MCG/ACT 8GM HFA INHALER INH PRN (10:45)
[2022-12-13] MEDS ORDERED: ACETAMINOPHEN TAB 650MG DOSE (2X325MG) PO PRN (10:45)
[2022-12-13] MEDS: PERCOCET 5MG/325MG TAB PO PRN ×4 (11:05→17:53)
[2022-12-13] MEDS ORDERED: ceFAZolin SOD 2 GM in IV 1 EA IV ONE (12:00)
[2022-12-13 15:15] VITALS: BP 141/85; TEMP 97.9; O2SAT 97
[2022-12-13] MEDS ORDERED: MED REC IN PROGRESS XX SCH (15:25)
[2022-12-13] MEDS: LR 1,000 ML IV SCH (15:29)
[2022-12-13] MEDS ORDERED: HOME MED LIST COMPLETE! XX SCH (17:50)
[2022-12-13] MEDS: FLUoxetine 20MG CAP PO SCH (18:38)
[2022-12-13] MEDS: GABAPENTIN 400MG CAP PO SCH ×2 (18:39→21:37)
[2022-12-13] MEDS: lamoTRIgine 100MG TAB PO SCH (18:40)
[2022-12-13] MEDS ORDERED: AMITRIPTYLINE 50 MG TAB PO SCH (21:00)
[2022-12-13] MEDS: traMADol 50 MG TAB PO PRN (21:37)
[2022-12-13 22:00] VITALS: BP 139/84; TEMP 97.5; O2SAT 94
[2022-12-14] MEDS: PERCOCET 5MG/325MG TAB PO PRN ×3 (01:27→13:53)
[2022-12-14] MEDS: LR 1,000 ML IV SCH (01:32)
[2022-12-14 02:00] VITALS: BP 138/84; TEMP 97.9; O2SAT 92
[2022-12-14] MEDS: traMADol 50 MG TAB PO PRN ×2 (03:55→12:08)
[2022-12-14 06:00] VITALS: BP 135/85; TEMP 98.4; O2SAT 93
[2022-12-14] MEDS: FLUoxetine 20MG CAP PO SCH (07:39)
[2022-12-14] MEDS: GABAPENTIN 400MG CAP PO SCH (07:40)
[2022-12-14] MEDS: lamoTRIgine 100MG TAB PO SCH (07:41)
[2022-12-14] MEDS ORDERED: DOCUSATE SODIUM 100MG CAPSULE PO SCH (09:00)
[2022-12-14] MEDS ORDERED: NICOTINE 21MG/24HR 1 EA TRANSDERMAL TD SCH (09:00)
[2022-12-14] MEDS ORDERED: PERCOCET PO ×2 (13:35→13:51)
[2022-12-14] MEDS ORDERED: COLA100C5 PO (13:35)
== END 2022-12-14 14:00 | disposition home or self-care (01) ==
LOC: M SDC 06:08 → UNDOADMOB 06:09 → M ED INP 06:09 → M MS5PR 15:14
PROVIDERS: ADMIT Plastic Surgery Surgery of the Hand; ATTEND Plastic Surgery Surgery of the Hand
DX: M54.07 Panniculitis affecting regions of neck and back, lumbosacral region (principal); L90.5 Scar conditions and fibrosis of skin; M62.08 Separation of muscle (nontraumatic), other site; Z98.84 Bariatric surgery status; Z98.890 Other specified postprocedural states; F17.210 Nicotine dependence, cigarettes, uncomplicated; G47.9 Sleep disorder, unspecified; Z86.73 Personal history of transient ischemic attack (TIA), and cerebral infarction without residual deficits; Z88.5 Allergy status to narcotic agent; Z88.8 Allergy status to other drugs, medicaments and biological substances; Z79.899 Other long term (current) drug therapy
CPT/HCPCS: 15830; 88300; 96374; C9290; G0378; J0131; J0665; J0690; J1100; J1170; J1580; J2250; J2405; J3010

== ENCOUNTER 2023-01-19 11:46 | Inpatient (IN) | payer MEDICARE, MEDICAID ==
[~2023-01-19] VITALS: Ht 170.2 cm; Wt 63.6 kg
[~2023-01-19 11:46] MED LIST changes: +COLA100C5 PO; -HEPARIN SOD (PORCINE) 5000UNITS/ML 1ML VIAL/SYRINGE SQ ONE; -ceFAZolin SOD 2 GM in IV 1 EA IV ONE
[2023-01-19] MEDS ORDERED: NS 1,000 ML IV ONE (13:25)
[2023-01-19] MEDS ORDERED: fentaNYL 100 MCG/2 ML INJECTION IV ONE (13:25)
[2023-01-19] MEDS ORDERED: NICOTINE 21MG/24HR 1 EA TRANSDERMAL TD ONE (13:40)
[2023-01-19 14:27] LABS: BASO # 0.1 10^3/uL (0.0-0.2); BASO % 1.1 % (0.0-1.0); EOS # 0.3 10^3/uL (0.0-0.5); EOS % 3.2 % (0.0-3.0); HEMOGLOBIN 11.2 g/dl (12.0-15.5); LYMPH # 1.5 10^3/uL (1.5-5.0); LYMPH % 15.8 % (24.0-44.0); MEAN CORPUSCULAR HEMOGLOBIN 26.7 pg (27.0-33.0); MEAN CORPUSCULAR VOLUME 83.5 fl (80.0-96.0); MONO # 0.8 10^3/uL (0.0-0.8); MONO % 8.8 % (2.0-8.0); NEUTROPHILS # 6.6 10^3/uL (1.5-8.5); NEUTROPHILS % 69.9 % (36.0-66.0); PLATELET COUNT, AUTOMATED 462 10^3/uL (150-450); RED BLOOD COUNT 4.19 10^6/uL (4.00-5.40); WHITE BLOOD COUNT 9.4 10^3/uL (4.0-10.0)
[2023-01-19 14:44] LABS: ERYTHROCYTE SEDIMENTATION RATE > 130 mm/hr (0-30)
[2023-01-19 14:50] LABS: ALBUMIN 2.6 G/DL (3.2-5.2); ALKALINE PHOSPHATASE 177 U/L (46-116); ALT/SGPT 15 U/L (7.0-40); AST/SGOT 20 U/L (<34); BILIRUBIN,DIRECT < 0.1 MG/DL (<0.4); BILIRUBIN,TOTAL 0.2 MG/DL (0.3-1.2); BLOOD UREA NITROGEN 7 MG/DL (9-23); CALCIUM LEVEL 8.5 MG/DL (8.5-10.1); CARBON DIOXIDE LEVEL 26 MMOL/L (20-31); CHLORIDE LEVEL 100 MMOL/L (98-107); CREATININE FOR GFR 0.52 MG/DL (0.55-1.30); GLOMERULAR FILTRATION RATE > 60.0 (>51); GLUCOSE, FASTING 92 MG/DL (60-100); POTASSIUM SERUM 4.1 MMOL/L (3.5-5.1); SODIUM LEVEL 135 MMOL/L (136-145)
[2023-01-19] MEDS ORDERED: MED REC IN PROGRESS XX SCH (14:50)
[2023-01-19] MEDS ORDERED: ISOVUE-370 76% 100ML VIAL As Ordered ONE (14:53)
[2023-01-19] MEDS ORDERED: ATOR40TA75 PO (15:19)
[2023-01-19] MEDS ORDERED: MM S100C PO (15:19)
[2023-01-19] MEDS ORDERED: FLUO-96 PO (15:19)
[2023-01-19] MEDS ORDERED: AZIT-12 PO (15:23)
[2023-01-19] MEDS ORDERED: AMOX875T2 PO (15:23)
[2023-01-19] MEDS ORDERED: MUPI2OI TOP (15:24)
[2023-01-19] MEDS ORDERED: HOME MED LIST COMPLETE! XX SCH (15:25)
[2023-01-19 15:54] LABS: RSV AMPLIFICATION NEGATIVE (NEGATIVE)
[2023-01-19] MEDS ORDERED: ALBUTEROL SULFATE 2.5MG/0.5ML INH NEB SOLN NEB ONE (17:05)
[2023-01-19] MEDS ORDERED: KETOROLAC 30 MG/ML 1ML VIAL IV ONE (17:50)
[2023-01-19] MEDS: lamoTRIgine 100MG TAB PO SCH (18:13)
[2023-01-19] MEDS: CEFTAROLINE FOSAMIL 600 MG in D5W MINI-BAG PLUS 50 ML IV SCH (18:16)
[2023-01-19] MEDS: **hydrALAZINE HCL** 25 MG TAB PO SCH ×2 (18:17→23:23)
[2023-01-19 18:25] VITALS: BP 170/96; TEMP 98.1
[2023-01-19] MEDS: KETOROLAC 30 MG/ML 1ML VIAL IV PRN (19:53)
[2023-01-19 20:00] VITALS: BP 152/84; TEMP 98.2; O2SAT 96
[2023-01-19] MEDS: PANTOPRAZOLE 40MG TAB (PROTONIX) PO SCH (20:33)
[2023-01-19] MEDS: zolPIDEM TARTRATE 5 MG TAB PO PRN (20:33)
[2023-01-19] MEDS: ATORVASTATIN 20 MG TAB PO SCH (20:33)
[2023-01-19] MEDS: GABAPENTIN 400MG CAP PO SCH (20:33)
[2023-01-19] MEDS: FLUoxetine 20MG CAP PO SCH (20:33)
[2023-01-19] MEDS: AMITRIPTYLINE 50 MG TAB PO SCH (20:33)
[2023-01-19 23:26] VITALS: BP 164/86
[2023-01-19] MEDS: PERCOCET 5MG/325MG TAB PO PRN (23:31)
[2023-01-20] MEDS: PERCOCET 5MG/325MG TAB PO PRN ×3 (03:34→21:16)
[2023-01-20] MEDS: CEFTAROLINE FOSAMIL 600 MG in D5W MINI-BAG PLUS 50 ML IV SCH ×2 (05:09→15:48)
[2023-01-20] MEDS: **hydrALAZINE HCL** 25 MG TAB PO SCH ×3 (05:09→18:00)
[2023-01-20 05:55] LABS: BASO # 0.1 10^3/uL (0.0-0.2); BASO % 0.8 % (0.0-1.0); EOS # 0.2 10^3/uL (0.0-0.5); EOS % 3.5 % (0.0-3.0); HEMATOCRIT 31.9 % (36.0-47.0); HEMOGLOBIN 10.3 g/dl (12.0-15.5); LYMPH # 1.7 10^3/uL (1.5-5.0); LYMPH % 26.5 % (24.0-44.0); MEAN CORPUSCULAR HEMOGLOBIN 27.2 pg (27.0-33.0); MEAN CORPUSCULAR HGB CONC 32.3 g/dl (32.0-36.5); MEAN CORPUSCULAR VOLUME 84.2 fl (80.0-96.0); MONO # 0.6 10^3/uL (0.0-0.8); MONO % 8.5 % (2.0-8.0); NEUTROPHILS % 60.1 % (36.0-66.0); PLATELET COUNT, AUTOMATED 402 10^3/uL (150-450); RED BLOOD COUNT 3.79 10^6/uL (4.00-5.40); WHITE BLOOD COUNT 6.6 10^3/uL (4.0-10.0)
[2023-01-20 06:00] VITALS: BP 160/94; TEMP 98.6; O2SAT 95
[2023-01-20 06:17] LABS: BLOOD UREA NITROGEN 8 MG/DL (9-23); CALCIUM LEVEL 8.4 MG/DL (8.5-10.1); CARBON DIOXIDE LEVEL 26 MMOL/L (20-31); CHLORIDE LEVEL 104 MMOL/L (98-107); CREATININE FOR GFR 0.56 MG/DL (0.55-1.30); GLOMERULAR FILTRATION RATE > 60.0 (>51); GLUCOSE, FASTING 92 MG/DL (60-100); POTASSIUM SERUM 4.5 MMOL/L (3.5-5.1); SODIUM LEVEL 137 MMOL/L (136-145)
[2023-01-20] MEDS: GABAPENTIN 400MG CAP PO SCH ×3 (08:47→21:15)
[2023-01-20] MEDS: lamoTRIgine 100MG TAB PO SCH (08:47)
[2023-01-20] MEDS: KETOROLAC 30 MG/ML 1ML VIAL IV PRN ×2 (08:47→15:49)
[2023-01-20] MEDS: amLODIPine 5 MG TAB PO SCH (08:47)
[2023-01-20] MEDS: ALBUTEROL SULFATE 2.5MG/0.5ML INH NEB SOLN NEB SCH ×3 (09:24→20:34)
[2023-01-20 14:00] VITALS: BP 131/91; TEMP 98.1; O2SAT 96
[2023-01-20 18:02] VITALS: BP 142/82
[2023-01-20] MEDS: PANTOPRAZOLE 40MG TAB (PROTONIX) PO SCH (21:15)
[2023-01-20] MEDS: AMITRIPTYLINE 50 MG TAB PO SCH (21:15)
[2023-01-20] MEDS: ATORVASTATIN 20 MG TAB PO SCH (21:15)
[2023-01-20] MEDS: zolPIDEM TARTRATE 5 MG TAB PO PRN (21:15)
[2023-01-20] MEDS: FLUoxetine 20MG CAP PO SCH (21:15)
[2023-01-20 22:00] VITALS: BP 114/70; TEMP 96.7; O2SAT 98
[2023-01-21] VITALS: BP 104/67
[2023-01-21] MEDS ORDERED: BENZONATATE 100MG CAPSULE PO PRN (00:15)
[2023-01-21] MEDS: PERCOCET 5MG/325MG TAB PO PRN (03:08)
[2023-01-21 05:11] VITALS: BP 143/75; TEMP 97.6; O2SAT 97
[2023-01-21] MEDS: CEFTAROLINE FOSAMIL 600 MG in D5W MINI-BAG PLUS 50 ML IV SCH (05:40)
[2023-01-21] MEDS: **hydrALAZINE HCL** 25 MG TAB PO SCH ×2 (05:40)
[2023-01-21 06:19] LABS: BASO # 0.1 10^3/uL (0.0-0.2); BASO % 0.7 % (0.0-1.0); EOS # 0.3 10^3/uL (0.0-0.5); EOS % 2.9 % (0.0-3.0); HEMATOCRIT 31.3 % (36.0-47.0); HEMOGLOBIN 9.8 g/dl (12.0-15.5); LYMPH # 1.4 10^3/uL (1.5-5.0); LYMPH % 13.4 % (24.0-44.0); MEAN CORPUSCULAR HGB CONC 31.3 g/dl (32.0-36.5); MEAN CORPUSCULAR VOLUME 86.2 fl (80.0-96.0); MONO # 0.9 10^3/uL (0.0-0.8); MONO % 8.9 % (2.0-8.0); NEUTROPHILS # 7.5 10^3/uL (1.5-8.5); NEUTROPHILS % 73.9 % (36.0-66.0); PLATELET COUNT, AUTOMATED 367 10^3/uL (150-450); RED BLOOD COUNT 3.63 10^6/uL (4.00-5.40); WHITE BLOOD COUNT 10.2 10^3/uL (4.0-10.0)
[2023-01-21 06:45] LABS: BLOOD UREA NITROGEN 14 MG/DL (9-23); CALCIUM LEVEL 8.1 MG/DL (8.5-10.1); CARBON DIOXIDE LEVEL 27 MMOL/L (20-31); CHLORIDE LEVEL 102 MMOL/L (98-107); CREATININE FOR GFR 0.56 MG/DL (0.55-1.30); GLOMERULAR FILTRATION RATE > 60.0 (>51); GLUCOSE, FASTING 99 MG/DL (60-100); POTASSIUM SERUM 4.7 MMOL/L (3.5-5.1); SODIUM LEVEL 137 MMOL/L (136-145)
[2023-01-21] MEDS: ALBUTEROL SULFATE 2.5MG/0.5ML INH NEB SOLN NEB SCH (07:24)
[2023-01-21] MEDS: lamoTRIgine 100MG TAB PO SCH (08:16)
[2023-01-21 08:18] VITALS: BP 130/68
[2023-01-21] MEDS: amLODIPine 5 MG TAB PO SCH (08:18)
[2023-01-21] MEDS: GABAPENTIN 400MG CAP PO SCH (08:18)
[2023-01-21] MEDS: KETOROLAC 30 MG/ML 1ML VIAL IV PRN (08:23)
[2023-01-21] MEDS ORDERED: DEXTROMETHORPHAN 60MG/10ML SUSP 90ML BTL(DELSYM) PO SCH (09:00)
[2023-01-21] MEDS ORDERED: BACT800T5 PO ×3 (09:38→10:55)
[2023-01-21] MEDS ORDERED: TUSS15SY2 PO ×3 (09:38→10:55)
[2023-01-21] MEDS ORDERED: VENTAER INH ×2 (10:27→10:55)
== END 2023-01-21 10:49 | disposition home or self-care (01) | DRG 862 ==
LOC: M ED 11:46 → M ED INP 16:14 → ENRESERV 16:58 → M MSPAV 18:25
PROVIDERS: ADMIT Internal Medicine Nephrology; ATTEND Internal Medicine Nephrology
DX: T81.42XA Infection following a procedure, deep incisional surgical site, initial encounter (principal); J18.9 Pneumonia, unspecified organism; I69.351 Hemiplegia and hemiparesis following cerebral infarction affecting right dominant side; L03.311 Cellulitis of abdominal wall; L76.34 Postprocedural seroma of skin and subcutaneous tissue following other procedure; J44.9 Chronic obstructive pulmonary disease, unspecified; F31.9 Bipolar disorder, unspecified; G40.909 Epilepsy, unspecified, not intractable, without status epilepticus; F41.9 Anxiety disorder, unspecified; M79.7 Fibromyalgia; E78.5 Hyperlipidemia, unspecified; B95.61 Methicillin susceptible Staphylococcus aureus infection as the cause of diseases classified elsewhere; E03.9 Hypothyroidism, unspecified; G47.00 Insomnia, unspecified; G43.909 Migraine, unspecified, not intractable, without status migrainosus; Z98.84 Bariatric surgery status; Z79.899 Other long term (current) drug therapy; Z88.5 Allergy status to narcotic agent; Z88.8 Allergy status to other drugs, medicaments and biological substances; F17.200 Nicotine dependence, unspecified, uncomplicated; Y83.2 Surgical operation with anastomosis, bypass or graft as the cause of abnormal reaction of the patient, or of later complication, without mention of misadventure at the time of the procedure

== ENCOUNTER 2023-01-21 11:00 | Outpatient (CLI) | payer MEDICARE, MEDICAID ==
[~2023-01-21 11:00] MED LIST changes: +AMOX875T2 PO; +ATOR40TA75 PO; +AZIT-12 PO; +BACT800T5 PO; +DALBAVANCIN 1,500 MG in D5W 250 ML IV ONE; +FLUO-96 PO; +MM S100C PO; +MUPI2OI TOP; +TUSS15SY2 PO; +VENTAER INH
== END 2023-01-21 12:24 ==
LOC: M OPCLI4PV 11:00
PROVIDERS: ATTEND Internal Medicine Nephrology
DX: T81.49XA Infection following a procedure, other surgical site, initial encounter (principal); Z88.5 Allergy status to narcotic agent; Z88.8 Allergy status to other drugs, medicaments and biological substances
CPT/HCPCS: 96365; J0875

== ENCOUNTER → 2024-06-15 | Outpatient (REF) ==
[~2024-06-15] MED LIST changes: -DALBAVANCIN 1,500 MG in D5W 250 ML IV ONE; +GABA-1172 PO; +GABA-1490 PO; +GABA-1635 PO; -GABA-282 PO; -GABA600T4 PO; -GABA800T4 PO; -MIRA1POW3 PO; +MIRA33506 PO; -SENN-111 PO; +SENN-165 PO; -ZOLP12.518 PO; +ZOLP12.535 PO
== END ==
LOC: M LAB REF 17:20
DX: L03.116 Cellulitis of left lower limb (principal)